=== PATIENT | male | born 1965 | race Caucasian/White ===

== ENCOUNTER 2017-03-31 17:43 | Inpatient (IN) | payer BC ==
[~2017-03-31 17:43] MED LIST: PIPERACILLIN/TAZOB 4.5 GM/100 ML PRE-DOCKED IVPB ONE
[2017-03-31] MEDS ORDERED: morphine CARPU-JECT 4 MG/1 ML DISP.SYRIN IVPUSH ONE ×2 (17:46→21:42)
[2017-03-31] MEDS ORDERED: SODIUM CHLORIDE 1,000 ML IV STA ×2 (17:46→22:20)
--- NOTE | 2017-03-31 17:46 | PDOC ---
History of Present Illness - General History Source: Patient Exam Limitations: No Limitations - History of Present Illness Initial Comments: 03/31/17 17:52 The patient is a year old male, BIBA with a significant past medical history of gallstones, who presents to the emergency department with mid abdominal pain for about 45 min. The patient reports his pain is constant and sharp. The patient reports being scheduled for surgery this Saturday for his gallbladder. He denies any recent fevers, chills, headache or dizziness. He denies any recent nausea, vomit, diarrhea or constipation. He denies any recent chest pain or shortness of breath. He denies any recent dysuria, frequency, urgency or hematuria. Allergies: NKA Social History: Nonsmoker. Denies EtOH use and recreational drug use. <Zbigniew Long - Last Filed: 03/31/17 17:52> <Millie Cazares - Last Filed: 03/31/17 20:22> - General Chief Complaint: Pain, Acute Stated Complaint: ABD PAIN Time Seen by Provider: 03/31/17 17:45 Past History <Zbigniew Long - Last Filed: 03/31/17 17:52> - Suicide/Smoking/Psychosocial Hx Smoking Status: Yes Smoking History: Current every day smoker Number of Cigarettes Smoked Daily: 10 <Millie Cazares - Last Filed: 03/31/17 20:22> - Past Medical History Allergies/Adverse Reactions: Allergies Allergy/AdvReac Type Severity Reaction Status Date / Time No Known Allergies Allergy Verified 08/31/11 15:43 Home Medications: Ambulatory Orders Diazepam [Valium] 5 mg PO Q6H #14 tablet 08/31/11 Ibuprofen [Motrin -] 800 mg PO TID #14 tablet 08/31/11 Oxycodone HCl/Acetaminophen [Percocet 5-325 mg Tablet] 1 - 2 combo PO Q6H #20 tablet 08/31/11 Review of Systems - Review of Systems Able to Perform ROS?: Yes Comments:: 03/31/17 17:52 GENERAL/CONSTITUTIONAL: No fever or chills. No weakness. HEAD, EYES, EARS, NOSE AND THROAT: No change in vision. No ear pain or discharge. No sore throat. CARDIOVASCULAR: No chest pain or shortness of breath. RESPIRATORY: No cough, wheezing, or hemoptysis. GASTROINTESTINAL: No nausea, vomiting, diarrhea or constipation. GENITOURINARY: No dysuria, frequency, or change in urination. MUSCULOSKELETAL: No joint or muscle swelling or pain. No neck or back pain. SKIN: No rash NEUROLOGIC: No headache, vertigo, loss of consciousness, or change in strength/ sensation. ENDOCRINE: No increased thirst. No abnormal weight change. HEMATOLOGIC/LYMPHATIC: No anemia, easy bleeding, or history of blood clots. ALLERGIC/IMMUNOLOGIC: No hives or skin allergy. <Zbigniew Long - Last Filed: 03/31/17 17:52> *Physical Exam - Physical Exam Comments: GENERAL: Awake, alert, and fully oriented. In obvious discomfort. HEAD: No signs of trauma EYES: PERRLA, EOMI, sclera anicteric, conjunctiva clear ENT: Auricles normal inspection, hearing grossly normal, nares patent, oropharynx clear without exudates. Dry mucosa NECK: Normal ROM, supple, no lymphadenopathy, JVD, or masses LUNGS: Breath sounds equal, clear to auscultation bilaterally. No wheezes, and no crackles HEART: Regular rate and rhythm, normal S1 and S2, no murmurs, rubs or gallops ABDOMEN: Soft, +RUQ tenderness with guarding and rebound. Normoactive bowel sounds. No masses EXTREMITIES: Normal range of motion, no edema. No clubbing or cyanosis. No cords , erythema, or tenderness NEUROLOGICAL: Cranial nerves II through XII grossly intact. Normal speech. Motor and sensation intact. SKIN: Warm, Dry, normal turgor, no rashes or lesions noted. <Millie Cazares - Last Filed: 03/31/17 20:22> ED Treatment Course - LABORATORY CBC & Chemistry Diagram: 03/31/17 18:12 03/31/17 18:12 <Millie Cazares - Last Filed: 03/31/17 20:22> Medical Decision Making - Medical Decision Making 03/31/17 19:[address] Singleton at 7pm shift change. He has history of gallstones, was scheduled for outpatient elective cholecystectomy, but today he developed sudden onset of severe RUQ pain, concerning for cholecystitis. He has received pain medication with significant improvement in symptoms. Awaiting CMP and ultrasound results. Likely admission. <Millie Cazares - Last Filed: 03/31/17 20:22> *DC/Admit/Observation/Transfer - Attestations Scribe Attestion: 03/31/17 17:53 Documentation prepared by Zbigniew Long, acting as medical front desk coordinator for Millie Cazares MD. <Zbigniew Long - Last Filed: 03/31/17 17:52> <Millie Cazares - Last Filed: 03/31/17 20:22> Diagnosis at time of Disposition: Abdominal pain Qualifiers: Abdominal location: right upper quadrant Qualified Code(s): R10.11 - Right upper quadrant pain
[2017-03-31] MEDS ORDERED: morphine SULFATE 4 MG/ML VIAL ONE ×2 (17:51→21:43)
[2017-03-31] MEDS ORDERED: morphine CARPU-JECT 2 MG/1 ML DISP.SYRIN ONE (17:53)
[2017-03-31 18:32] LABS: BASO % 0.7 % (0-2.0); EOS % 2.3 % (0-4.5); HEMATOCRIT 47.5 % (35.4-49); HEMOGLOBIN 16.4 GM/dl (11.7-16.9); LYMPH % 16.5 % (8-40); MCH 32.2 pg (25.7-33.7); MCHC 34.5 g/dl (32.0-35.9); MEAN CELL VOLUME 93.4 fl (80-96); MEAN PLT VOLUME 8.3 fl (7.5-11.1); MONO % 9.5 % (3.8-10.2); PLATELET COUNT 228 K/MM3 (134-434); RBC 5.09 M/mm3 (4.00-5.60); RDW 13.3 % (11.9-15.9); WHITE BLOOD COUNT 7.9 K/mm3 (4.0-10.8)
[2017-03-31 18:33] LABS: INR 1.24 (0.82-1.09); PROTHROMBIN TIME (PATIENT) 13.8 SEC (10.2-13.0)
[2017-03-31 18:49] LABS: ALBUMIN 3.9 g/dl (3.5-5.0); ALK PHOS 80 U/L (32-92); ANION GAP 7 (8-16); BILIRUBIN,TOTAL 0.4 mg/dl (0.2-1.0); BLOOD UREA NITROGEN 22 mg/dl (7-18); CALCIUM 9.2 mg/dl (8.4-10.2); CHLORIDE 103 mmol/L (98-107); CO2 31 mmol/L (22-28); CREATININE 1.1 mg/dl (0.6-1.3); GLUCOSE,RANDOM 86 mg/dl (74-106); LIPASE 26 U/L (22-51); POTASSIUM 3.7 mmol/L (3.5-5.1); SGOT/AST 58 U/L (10-42); SGPT/ALT 33 U/L (10-40); SODIUM 141 mmol/L (136-145); TOT PROT 6.5 g/dl (6.4-8.3)
--- NOTE | 2017-03-31 19:36 | PDOC ---
*Physical Exam - Vital Signs Last Vital Signs Temp Pulse Resp BP Pulse Ox 98.4 F 93 H 24 181/91 99 03/31/17 17:43 03/31/17 17:43 03/31/17 17:43 03/31/17 17:43 03/31/17 17:43 ED Treatment Course - LABORATORY CBC & Chemistry Diagram: 03/31/17 18:12 03/31/17 18:12 - ADDITIONAL ORDERS Additional order review: Laboratory Results 03/31/17 03/31/17 18:12 18:09 PT with INR 13.8 H INR 1.24 H Sodium 141 Potassium 3.7 Chloride 103 Carbon Dioxide 31 H Anion Gap 7 L BUN 22 H Creatinine 1.1 Creat Clearance w eGFR > 60 Random Glucose 86 Calcium 9.2 Total Bilirubin 0.4 AST 58 H ALT 33 Alkaline Phosphatase 80 Total Protein 6.5 Albumin 3.9 Lipase 26 03/31/17 18:12 RBC 5.09 MCV 93.4 MCHC 34.5 RDW 13.3 MPV 8.3 Neutrophils % 71.0 Lymphocytes % 16.5 Monocytes % 9.5 Eosinophils % 2.3 Basophils % 0.7 - Medications Given in the ED: ED Medications Discontinued Medications Generic Name Dose Route Start Last Admin Trade Name Freq PRN Reason Stop Dose Admin Sodium Chloride 1,000 mls @ 1,000 mls/hr 03/31/17 17:46 03/31/17 17:45 Normal Saline - IV 03/31/17 18:45 1,000 mls/hr ASDIR STA Administration Morphine Sulfate 6 mg 03/31/17 17:46 03/31/17 17:50 Morphine Injection - IVPUSH 03/31/17 17:47 6 mg ONCE ONE Administration Progress Note - Progress Note Progress Note: Care of this patient was transferred to [place] from Dr. Cazares at 1900 hrs. Patient is a 52-year-old male who has history of gallstones. Patient was scheduled for an elective gallbladder removal in the near future however he came in this evening with an acute attack of his gallbladder pain. Patient has a workup pending as well as an ultrasound to rule out acute cholecystitis. Patient has been medicated with morphine but still is somewhat uncomfortable so will medicate with Toradol Will follow-up on labs and ultrasound Well reassess US Patient Name: CAROLEE FLORES THIS IS A PRELIMINARY REPORT FROM [facility] DATE OF SERVICE: 2017-03-31 19:33:14 IMAGES: 67 EXAM: US ABDOMEN RIGHT UPPER QUADRANT HISTORY: 52-year-old male evaluate for cholecystitis. COMPARISON: None. FINDINGS: Mild 16.5 cm hepatomegaly and fatty replacement of the liver parenchyma. Cholelithiasis in the gallbladder neck moderate 8.4 cm gallbladder distention abnormal 9 mm gallbladder wall thickening positive sonographic Lopez sign and pericholecystic free fluid is consistent with acute cholecystitis. Abnormal 8 mm common bile duct dilation may be associated with distal common bile duct partially obstructing choledocholithiasis or other disease in the pancreatic head. Pancreas is not seen due to overlying bowel gas. No right kidney nephrolithiasis or hydronephrosis. Right kidney measures 10.8 x 3.7 x 5.1 cm. IMPRESSION: Cholelithiasis and acute cholecystitis. Mild hepatomegaly and steatosis may be associated with insulin resistance and metabolic syndrome. Limited exam with nonvisualization the pancreas due to overlying bowel gas. Abnormal 8 mm common bile duct dilation may be associated with distal common bile duct partially obstructing choledocholithiasis or other disease in the pancreatic head. If clinically indicated followup magnetic resonance cholangiopancreatogram MRCP protocol MRI abdomen may be needed. A verbal report of the abnormal findings were discussed with Dr. Kelly by Dr. Gamble at 8:49 PM EST March 31, 2017. THIS DOCUMENT HAS BEEN ELECTRONICALLY SIGNED Ming Gamble MD Ultrasound shows acute cholecystitis. Patient given Zosyn and will be placed in an observation bed for further management and evaluation of his acute cholecystitis and probable removal of his gallbladder. Patient will be admitted under the hospitalist service and the surgeon will be Dr. Horan. Discussed the case with Dr. Horan feels the patient will need an MRCP and probably ERCP prior to the OR. so patient will be transferred to [facility] as those procedures are not done here at [facility]. Dr. Ibarra will be consult and for the GI studies. *DC/Admit/Observation/Transfer Diagnosis at time of Disposition: Acute cholecystitis Abdominal pain Qualifiers: Abdominal location: right upper quadrant Qualified Code(s): R10.11 - Right upper quadrant pain - Discharge Dispostion Admit: Yes - Referrals - Patient Instructions - Post Discharge Activity
[2017-03-31] MEDS ORDERED: KETOROLAC TROMETHAMINE 30 MG/1 ML VIAL IVPUSH ONE (19:41)
[2017-03-31] MEDS ORDERED: KETOROLAC TROMETHAMINE 30 MG/1 ML VIAL ONE (19:42)
[2017-03-31] MEDS ORDERED: PIPERACILLIN/TAZOBACTAM 3.375 GM VIAL IVPB ONE (20:45)
[2017-03-31] MEDS ORDERED: PIPERACIL/TAZOB 3.375 GM 3.375 GM/50 ML PREMIX IVPB ONE (21:17)
[2017-03-31] MEDS ORDERED: SODIUM CHLORIDE 1,000 ML IV SCH (21:30)
[2017-03-31] MEDS ORDERED: PIPERACILLIN/TAZOB 3.375 GM/50 ML PRE-DOCKED IVPB ONE (21:41)
--- NOTE | 2017-03-31 22:17 | HP ---
CHIEF COMPLAINT: Abdominal Pain PCP: HISTORY OF PRESENT ILLNESS: This is a 52 y/o man with a past medical history of Cholelithiasis, Degenerative Disc Disease. Who presents to the ED with mid abdominal pain x today. Patient describes the pain as constant and sharp. He reports being diaphoretic initially- then resolved. Patient reports having a similar episode in February and is scheduled for a Cholecystectomy this Saturday at [facility]. Patient reports avoiding fatty, greasy, spicy foods. He denies fever, chills, cough, SOB, CP, palpitations, N/V/D, constipation, dysuria. ER course was notable for: (1) US abdomen- Acute Cholecystitis (2) (3) Recent Travel: None PAST MEDICAL HISTORY: see HPI PAST SURGICAL HISTORY: Social History: Smoking: Cigarettes < 5 per/day Alcohol: None Drugs: None Family History: No Heart Disease Allergies No Known Allergies Allergy (Verified 08/31/11 15:43) HOME MEDICATIONS: Home Medications Medication Instructions Recorded Doxazosin Mesylate [Cardura] 1 mg PO HS 03/31/17 Metoprolol Succinate [Toprol Xl] 25 mg PO DAILY 03/31/17 Rivaroxaban [Xarelto -] 20 mg PO DAILY 03/31/17 Valsartan 40 mg PO DAILY 03/31/17 REVIEW OF SYSTEMS CONSTITUTIONAL: diaphoresis Absent: fever, chills, generalized weakness, malaise, loss of appetite, weight change HEENT: Absent: rhinorrhea, nasal congestion, throat pain, throat swelling, difficulty swallowing, mouth swelling, ear pain, eye pain, visual changes CARDIOVASCULAR: Absent: chest pain, syncope, palpitations, irregular heart rate, lightheadedness , peripheral edema RESPIRATORY: Absent: cough, shortness of breath, dyspnea with exertion, orthopnea, wheezing, stridor, hemoptysis GASTROINTESTINAL: abdominal pain Absent: abdominal distension, nausea, vomiting, diarrhea, constipation, melena, hematochezia GENITOURINARY: Absent: dysuria, frequency, urgency, hesitancy, hematuria, flank pain, genital pain MUSCULOSKELETAL: Absent: myalgia, arthralgia, joint swelling, back pain, neck pain SKIN: Absent: rash, itching, pallor HEMATOLOGIC/IMMUNOLOGIC: Absent: easy bleeding, easy bruising, lymphadenopathy, frequent infections ENDOCRINE: Absent: unexplained weight gain, unexplained weight loss, heat intolerance, cold intolerance NEUROLOGIC: Absent: headache, focal weakness or paresthesias, dizziness, unsteady gait, seizure, mental status changes, bladder or bowel incontinence PSYCHIATRIC: Absent: anxiety, depression, suicidal or homicidal ideation, hallucinations. PHYSICAL EXAMINATION Vital Signs - 24 hr 03/31/17 03/31/17 17:43 21:04 Temperature 98.4 F Pulse Rate 93 H Pulse Rate [ 64 Left] Respiratory 24 16 Rate Blood Pressure 181/91 Blood Pressure 154/111 [Right] O2 Sat by Pulse 99 100 Oximetry (%) GENERAL: Awake, alert, and fully oriented, in no acute distress. HEAD: Normal with no signs of trauma. EYES: Pupils equal, round and reactive to light, extraocular movements intact, sclera anicteric, conjunctiva clear. No lid lag. EARS, NOSE, THROAT: Ears normal, nares patent, oropharynx clear without exudates. Moist mucous membranes. NECK: Normal range of motion, supple without lymphadenopathy, JVD, or masses. LUNGS: Breath sounds equal, clear to auscultation bilaterally. No wheezes, and no crackles. No accessory muscle use. HEART: Regular rate and rhythm, normal S1 and S2 without murmur, rub or gallop. ABDOMEN: Soft, Obese, RUQ tenderness, hyperactive bowel sounds, +Lopez's Sign. Not distended, no guarding, no rebound, no masses. No hepatomegaly or splenomegaly. MUSCULOSKELETAL: Normal range of motion at all joints. No bony deformities or tenderness. No CVA tenderness. UPPER EXTREMITIES: 2+ pulses, warm, well-perfused. No cyanosis. No clubbing. No peripheral edema. LOWER EXTREMITIES: 2+ pulses, warm, well-perfused. No calf tenderness. No peripheral edema. NEUROLOGICAL: Cranial nerves II-XII intact. Normal speech. Normal gait. PSYCHIATRIC: Cooperative. Good eye contact. Appropriate mood and affect. SKIN: Warm, dry, normal turgor, no rashes or lesions noted, normal capillary refill. Laboratory Results - last 24 hr 03/31/17 03/31/17 03/31/17 18:09 18:12 18:12 WBC 7.9 RBC 5.09 Hgb 16.4 Hct 47.5 MCV 93.4 MCH 32.2 MCHC 34.5 RDW 13.3 Plt Count 228 MPV 8.3 Neutrophils % 71.0 Lymphocytes % 16.5 Monocytes % 9.5 Eosinophils % 2.3 Basophils % 0.7 PT with INR 13.8 H INR 1.24 H Sodium 141 Potassium 3.7 Chloride 103 Carbon Dioxide 31 H Anion Gap 7 L BUN 22 H Creatinine 1.1 Creat Clearance w eGFR > 60 Random Glucose 86 Calcium 9.2 Total Bilirubin 0.4 AST 58 H ALT 33 Alkaline Phosphatase 80 Total Protein 6.5 Albumin 3.9 Lipase 26 Blood Type Antibody Screen 03/31/17 03/31/17 18:12 18:24 WBC RBC Hgb Hct MCV MCH MCHC RDW Plt Count MPV Neutrophils % Lymphocytes % Monocytes % Eosinophils % Basophils % PT with INR INR Sodium Potassium Chloride Carbon Dioxide Anion Gap BUN Creatinine Creat Clearance w eGFR Random Glucose Calcium Total Bilirubin AST ALT Alkaline Phosphatase Total Protein Albumin Lipase Blood Type A POSITIVE A POSITIVE Antibody Screen Negative US Patient Name: CAROLEE FLORES THIS IS A PRELIMINARY REPORT FROM [facility] DATE OF SERVICE: 2017-03-31 19:33:14 IMAGES: 67 EXAM: US ABDOMEN RIGHT UPPER QUADRANT HISTORY: 52-year-old male evaluate for cholecystitis. COMPARISON: None. FINDINGS: Mild 16.5 cm hepatomegaly and fatty replacement of the liver parenchyma. Cholelithiasis in the gallbladder neck moderate 8.4 cm gallbladder distention abnormal 9 mm gallbladder wall thickening positive sonographic Lopez sign and pericholecystic free fluid is consistent with acute cholecystitis. Abnormal 8 mm common bile duct dilation may be associated with distal common bile duct partially obstructing choledocholithiasis or other disease in the pancreatic head. Pancreas is not seen due to overlying bowel gas. No right kidney nephrolithiasis or hydronephrosis. Right kidney measures 10.8 x 3.7 x 5.1 cm. IMPRESSION: Cholelithiasis and acute cholecystitis. Mild hepatomegaly and steatosis may be associated with insulin resistance and metabolic syndrome. Limited exam with nonvisualization the pancreas due to overlying bowel gas. Abnormal 8 mm common bile duct dilation may be associated with distal common bile duct partially obstructing choledocholithiasis or other disease in the pancreatic head. If clinically indicated followup magnetic resonance cholangiopancreatogram MRCP protocol MRI abdomen may be needed. A verbal report of the abnormal findings were discussed with Dr. Kelly by Dr. Gamble at 8:49 PM EST March 31, 2017. THIS DOCUMENT HAS BEEN ELECTRONICALLY SIGNED Ming Gamble MD ASSESSMENT/PLAN: This is a 52 y/o man with a PMHx of Cholelithiasis, A-flutter (newly diagnosed on Xarelto). Placed on Observation for Acute Cholecystitis Problem: 1. Abdominal Pain 2. Acute Cholecystitis 3. Hypertension 4. A-Flutter Problem List - Problem (1) Acute cholecystitis Assessment/Plan: - US- See above - Surgeon aware and is following - Zosyn given in the ED - Will continue Zosyn 4.75gm per surgeon - Continue IVF - Repeat CBC, BMP in am - Appreciate ID consult - Appreciate GI Consult for MRCP - Monitor vitals Code(s): K81.0 - ACUTE CHOLECYSTITIS (2) Abdominal pain Assessment/Plan: - See above Code(s): R10.9 - UNSPECIFIED ABDOMINAL PAIN Qualifiers: Abdominal location: right upper quadrant Qualified Code(s): R10.11 - Right upper quadrant pain (3) HTN (hypertension) Assessment/Plan: - Not controlled - Patient reports not taking his BP meds for 3 days- work related. - Continue home meds - Monitor renal function Code(s): I10 - ESSENTIAL (PRIMARY) HYPERTENSION (4) Atrial flutter Assessment/Plan: -Asymptomatic - EKG reviewed Aflutter with variable AV block, RBBB - Appreciate Cardiology consult for surgical clearance for Jessica - Hold Xarelto Code(s): I48.92 - UNSPECIFIED ATRIAL FLUTTER (5) DVT prophylaxis Assessment/Plan: - OOB - SCDs - Hold Xarelto for Surgey Code(s): [id number] - Visit type - Emergency Visit Emergency Visit: Yes ED Registration Date: 03/31/17 Care time: The patient presented to the Emergency Department on the above date and was hospitalized for further evaluation of their emergent condition. - New Patient This patient is new to me today: Yes Date on this admission: 03/31/17 - Critical Care Critical Care patient: No
[2017-03-31] MEDS: morphine CARPU-JECT 10 MG/1 ML DISP.SYRIN IVPUSH PRN (23:45)
[2017-03-31] MEDS: D5-1/2NS+20 MEQ KCL - 20 MEQ/1,000 ML INFUS.BAG IV SCH (23:49)
[2017-04-01] MEDS ORDERED: PNEUMOC 13-VAL CONJ-DIP CRM/PF 0.5 ML DISP.SYRIN IM ONE (02:27)
[2017-04-01] MEDS ORDERED: DOXAZOSIN MESYLATE 1 MG TABLET PO ONE (02:31)
[2017-04-01 02:35] VITALS: BMI 29.5
[2017-04-01] MEDS: morphine CARPU-JECT 10 MG/1 ML DISP.SYRIN IVPUSH PRN ×4 (04:36→20:08)
[2017-04-01] MEDS ORDERED: PIPERACILLIN/TAZOB 4.5 GM/100 ML PRE-DOCKED IVPB ONE (05:00)
[2017-04-01 08:41] LABS: BASO % 0.6 % (0-2.0); EOS % 2.9 % (0-4.5); HEMATOCRIT 42.1 % (35.4-49); HEMOGLOBIN 13.8 GM/dL (11.7-16.9); LYMPH % 26.5 % (8-40); MCH 30.8 pg (25.7-33.7); MCHC 32.7 g/dl (32.0-35.9); MEAN CELL VOLUME 94.1 fl (80-96); MEAN PLT VOLUME 7.9 fl (7.5-11.1); MONO % 10.5 % (3.8-10.2); NEUT % 59.5 % (42.8-82.8); PLATELET COUNT 193 K/MM3 (134-434); RBC 4.48 M/mm3 (4.00-5.60); RDW 14.1 % (11.9-15.9); WHITE BLOOD COUNT 5.6 K/mm3 (4.0-10.0)
[2017-04-01 09:04] LABS: ANION GAP 6 (8-16); BLOOD UREA NITROGEN 16 mg/dL (7-18); CALCIUM 8.2 mg/dL (8.5-10.1); CHLORIDE 110 mmol/L (98-107); CO2 27 mmol/L (21-32); CREATININE 1.1 mg/dL (0.7-1.3); GLUCOSE,RANDOM 86 mg/dL (74-106); POTASSIUM 4.2 mmol/L (3.5-5.1); SODIUM 143 mmol/L (136-145)
[2017-04-01] MEDS ORDERED: PT OWN MED DRAWER 7, Y5N ONE ×4 (09:39→21:18)
[2017-04-01] MEDS: VALSARTAN 40 MG TABLET (FP) PO SCH (09:45)
[2017-04-01] MEDS: METOPROLOL SUCCINATE 25 MG TAB.SR.24H (FP) PO SCH (09:45)
[2017-04-01] MEDS ORDERED: PNEUMOCOCCAL 23 VACCINE 0.5 ML VIAL IM ONE (10:00)
--- NOTE | 2017-04-01 10:44 | EKG ---
Test Reason : Blood Pressure : / mmHG Vent. Rate : 058 BPM Atrial Rate : 277 BPM P-R Int : 000 ms QRS Dur : 140 ms QT Int : 382 ms P-R-T Axes : 092 010 -09 degrees QTc Int : 374 ms ATRIAL FLUTTER WITH VARIABLE A-V BLOCK RIGHT BUNDLE BRANCH BLOCK WHEN COMPARED WITH ECG OF 21-SEP-2001 08:56, RIGHT BUNDLE BRANCH BLOCK IS NOW PRESENT Confirmed by MD ALICIA, KIERAN ([id number]) on 04/01/2017 10:44:28 AM Referred By: HILDA MORELOS Confirmed By:KIERAN VARGAS MD
--- NOTE | 2017-04-01 11:15 | CON.ID ---
Consult Consult Specialty:: infectious diseases Reason for Consultation:: choleycystitis - History of Present Illness Chief Complaint: abd pain History of Present Illness: 52 y/o man with a past medical history of Cholelithiasis, Degenerative Disc Disease. admitted with ruq abdominal pain . Patient describes the pain as constant and sharp. He reports being diaphoretic initially- then resolved. Patient reports having a similar episode in February patient was planned to have surgery done,but according tot he patient the pain yesterday became very severe and the patient came to the hospital and was worked up and found to ahve cbd dilation and ac cholecysitis patient continues to have abd pain denies any other symptoms he is also recent afib smoker says since last 2 yrs it is very light started on zosyn surgery has seen the patient - History Source History Provided By: Patient Limitations to Obtaining History: No Limitations - Alcohol/Substance Use Hx Alcohol Use: No - Smoking History Smoking history: Current every day smoker Have you smoked in the past 12 months: Yes Aproximately how many cigarettes per day: 5 Home Medications - Allergies Allergies/Adverse Reactions: Allergies Allergy/AdvReac Type Severity Reaction Status Date / Time No Known Allergies Allergy Verified 08/31/11 15:43 - Home Medications Home Medications: Ambulatory Orders Doxazosin Mesylate [Cardura] 1 mg PO HS 03/31/17 Metoprolol Succinate [Toprol Xl] 25 mg PO DAILY 03/31/17 Rivaroxaban [Xarelto -] 20 mg PO DAILY 03/31/17 Valsartan 40 mg PO DAILY 03/31/17 Review of Systems - Review of Systems Constitutional: reports: No Symptoms Eyes: reports: No Symptoms HENT: reports: No Symptoms Neck: reports: No Symptoms Cardiovascular: reports: No Symptoms Respiratory: reports: No Symptoms Gastrointestinal: reports: Abdominal Pain (ruq) Musculoskeletal: reports: No Symptoms Integumentary: reports: No Symptoms Neurological: reports: No Symptoms Endocrine: reports: No Symptoms Hematology/Lymphatic: reports: No Symptoms Psychiatric: reports: No Symptoms Physical Exam Vital Signs: Vital Signs Temperature 97.3 F L 04/01/17 09:00 Pulse Rate 76 04/01/17 09:00 Respiratory Rate 18 04/01/17 09:00 Blood Pressure 159/106 04/01/17 09:00 O2 Sat by Pulse Oximetry (%) 97 03/31/17 23:00 Constitutional: Yes: Well Nourished, Calm, Mild Distress Eyes: Yes: Conjunctiva Clear HENT: Yes: Atraumatic, Normocephalic Neck: Yes: Supple, Trachea Midline Cardiovascular: Yes: Pulse Irregular, Other (aflutter) Respiratory: Yes: Regular, CTA Bilaterally Gastrointestinal: Yes: Soft, Tenderness (ruq) Musculoskeletal: Yes: WNL Extremities: Yes: WNL Neurological: Yes: Alert, Oriented Psychiatric: Yes: Alert, Oriented Labs: CBC, BMP 04/01/17 07:00 Imaging - Results Chest X-ray: Report Reviewed, Image Reviewed Ultrasound: Report Reviewed, Image Reviewed Assessment/Plan Problem List - Problem (1) Acute cholecystitis Code(s): K81.0 - ACUTE CHOLECYSTITIS (2) Abdominal pain Code(s): R10.9 - UNSPECIFIED ABDOMINAL PAIN Qualifiers: Abdominal location: right upper quadrant Qualified Code(s): R10.11 - Right upper quadrant pain (3) HTN (hypertension) Code(s): I10 - ESSENTIAL (PRIMARY) HYPERTENSION (4) Atrial flutter Code(s): I48.92 - UNSPECIFIED ATRIAL FLUTTER plan continue as per surgery for mrcp continue abx rest as per primary team
--- NOTE | 2017-04-01 11:18 | CON.GI ---
Consult Consult Specialty:: GI Reason for Consultation:: bilated CBD - History of Present Illness History of Present Illness: Chart reviewed. ED and H&P noted. A 52 yom with known symptomatic cholellithiasis presents with RUQ, radiating to LUQ sharp, severe pain of 1 day duration. Had few similar episodes, but milder in intensity since January of 2017 and was scheduled to undergo elective cholecystectomy later this months. Afebrile, no fever, chills, nausea, or vomiting. No melena, hematochezia, significant weight loss. In ED found to have CBD 0.8 mm, no obvious defects. Liver chemistry, alp,and bili are normal. Gallbladder with sludge and small stones. Tmax 89.4 - History Source History Provided By: Patient - Alcohol/Substance Use Hx Alcohol Use: No - Smoking History Smoking history: Current every day smoker Have you smoked in the past 12 months: Yes Aproximately how many cigarettes per day: 5 Home Medications - Allergies Allergies/Adverse Reactions: Allergies Allergy/AdvReac Type Severity Reaction Status Date / Time No Known Allergies Allergy Verified 08/31/11 15:43 - Home Medications Home Medications: Ambulatory Orders Doxazosin Mesylate [Cardura] 1 mg PO HS 03/31/17 Metoprolol Succinate [Toprol Xl] 25 mg PO DAILY 03/31/17 Rivaroxaban [Xarelto -] 20 mg PO DAILY 03/31/17 Valsartan 40 mg PO DAILY 03/31/17 Family Disease History - Family Disease History Family History: Unremarkable (non-contributory) Review of Systems Findings/Remarks: per H&P, HPI Physical Exam-GI Vital Signs: Vital Signs Temperature 97.3 F L 04/01/17 09:00 Pulse Rate 76 04/01/17 09:00 Respiratory Rate 18 04/01/17 09:00 Blood Pressure 159/106 04/01/17 09:00 O2 Sat by Pulse Oximetry (%) 97 03/31/17 23:00 Constitutional: Yes: Well Nourished, No Distress, Calm Eyes: Yes: Conjunctiva Clear HENT: Yes: Atraumatic Neck: Yes: Supple Cardiovascular: Yes: Regular Rate and Rhythm Respiratory: Yes: Regular Gastrointestinal Inspection: No: Ascites, Distention ...Auscultate: Yes: Normoactive Bowel Sounds ...Palpate: Yes: Guarding, Soft, Tenderness (RUQ, Positive Lopez's). No: Pulsatile Mass Neurological: Yes: Alert, Oriented Labs: CBC, BMP 04/01/17 07:00 INR, PTT INR 1.24 (0.82-1.09) H 03/31/17 18:09 Laboratory Tests 03/31/17 03/31/17 03/31/17 18:09 18:12 18:12 WBC 7.9 RBC 5.09 Hgb 16.4 Hct 47.5 MCV 93.4 MCH 32.2 MCHC 34.5 RDW 13.3 Plt Count 228 MPV 8.3 Neutrophils % 71.0 Lymphocytes % 16.5 Monocytes % 9.5 Eosinophils % 2.3 Basophils % 0.7 PT with INR 13.8 H INR 1.24 H Sodium 141 Potassium 3.7 Chloride 103 Carbon Dioxide 31 H Anion Gap 7 L BUN 22 H Creatinine 1.1 Creat Clearance w eGFR > 60 Random Glucose 86 Calcium 9.2 Total Bilirubin 0.4 AST 58 H ALT 33 Alkaline Phosphatase 80 Troponin I Total Protein 6.5 Albumin 3.9 Lipase 26 Blood Type Antibody Screen 03/31/17 03/31/17 04/01/17 18:12 18:24 07:00 WBC 5.6 RBC 4.48 Hgb 13.8 Hct 42.1 MCV 94.1 MCH 30.8 MCHC 32.7 RDW 14.1 Plt Count 193 MPV 7.9 Neutrophils % 59.5 Lymphocytes % 26.5 Monocytes % 10.5 H Eosinophils % 2.9 Basophils % 0.6 PT with INR INR Sodium Potassium Chloride Carbon Dioxide Anion Gap BUN Creatinine Creat Clearance w eGFR Random Glucose Calcium Total Bilirubin AST ALT Alkaline Phosphatase Troponin I Total Protein Albumin Lipase Blood Type A POSITIVE A POSITIVE Antibody Screen Negative 04/01/17 07:00 WBC RBC Hgb Hct MCV MCH MCHC RDW Plt Count MPV Neutrophils % Lymphocytes % Monocytes % Eosinophils % Basophils % PT with INR INR Sodium 143 Potassium 4.2 Chloride 110 H Carbon Dioxide 27 Anion Gap 6 L BUN 16 Creatinine 1.1 Creat Clearance w eGFR Random Glucose 86 Calcium 8.2 L Total Bilirubin AST ALT Alkaline Phosphatase Troponin I 0.05 Total Protein Albumin Lipase Blood Type Antibody Screen Imaging - Results Ultrasound: Report Reviewed MRI: Pending Problem List - Problems (1) Dilated bile duct Code(s): K83.8 - OTHER SPECIFIED DISEASES OF BILIARY TRACT (2) Acute cholecystitis Code(s): K81.0 - ACUTE CHOLECYSTITIS Assessment/Plan Cholelithiasis, possible cholecystitis, possible choledocolithiasis/passed stone although no evidence of that based on liver chemistry, bilirubin and ALP values. Symptomatic with positive Lopez's. No signs of cholangitis, pancreatitis, toxicity, sepsis. MRCP NPO CMP, direct bili Sx follow up
[2017-04-01 11:36] LABS: ALBUMIN 3.1 g/dl (3.4-5.0); ALK PHOS 87 U/L (45-117); ANION GAP 5 (8-16); BILIRUBIN,DIRECT 0.2 mg/dL (0.0-0.2); BILIRUBIN,TOTAL 0.7 mg/dL (0.2-1.0); BLOOD UREA NITROGEN 15 mg/dL (7-18); CALCIUM 7.7 mg/dL (8.5-10.1); CHLORIDE 111 mmol/L (98-107); CO2 27 mmol/L (21-32); CREATININE 1.1 mg/dL (0.7-1.3); GLUCOSE,RANDOM 93 mg/dL (74-106); SGOT/AST 23 U/L (15-37); SGPT/ALT 40 U/L (12-78); SODIUM 143 mmol/L (136-145); TOT PROT 6.1 g/dl (6.4-8.2)
--- NOTE | 2017-04-01 12:22 | CON.CARD ---
Consult Consult Specialty:: Cardiology Referred by:: Hospitalist Medicine Reason for Consultation:: Pre-operative cardiovascular evaluation - History of Present Illness Chief Complaint: RUQ abd discomfort History of Present Illness: 52 yo male with known symptomatic cholelithiasis, HTN, atrial flutter on NOAC presented with RUQ, radiating to LUQ sharp, severe pain of 1 day duration. Had few similar episodes, but milder in intensity since January of 2017 and was scheduled to undergo elective cholecystectomy later this month. Afebrile, no fever, chills, nausea, or vomiting. No melena, hematochezia, significant weight loss. Liver chemistry, alp,and bili are normal. Gallbladder U/S with sludge and small stones, + Lopez's sign c/w acute cholecystitis, 8.5 mm dilated CBD underwent MRCP. Regarding cardiovascular symptoms, he denies chest pain, dyspnea , near or true syncope, palpitations, orthopnea, PND or LE edema. Last Xarelto dose 03/31/17 9:30 AM. - History Source History Provided By: Patient Limitations to Obtaining History: No Limitations - Alcohol/Substance Use Hx Alcohol Use: No - Smoking History Smoking history: Current every day smoker Have you smoked in the past 12 months: Yes Aproximately how many cigarettes per day: 5 Home Medications - Allergies Allergies/Adverse Reactions: Allergies Allergy/AdvReac Type Severity Reaction Status Date / Time No Known Allergies Allergy Verified 08/31/11 15:43 - Home Medications Home Medications: Ambulatory Orders Doxazosin Mesylate [Cardura] 1 mg PO HS 03/31/17 Metoprolol Succinate [Toprol Xl] 25 mg PO DAILY 03/31/17 Rivaroxaban [Xarelto -] 20 mg PO DAILY 03/31/17 Valsartan 40 mg PO DAILY 03/31/17 Review of Systems - Review of Systems Gastrointestinal: reports: Abdominal Pain - Risk Factors Known Risk Factors: Yes: Hypertension Vital Signs: Vital Signs Temperature 97.3 F L 04/01/17 09:00 Pulse Rate 76 04/01/17 09:00 Respiratory Rate 18 04/01/17 09:00 Blood Pressure 159/106 04/01/17 09:00 O2 Sat by Pulse Oximetry (%) 97 03/31/17 23:00 Constitutional: Yes: No Distress, Calm Neck: Yes: Supple Respiratory: Yes: Regular, CTA Bilaterally Gastrointestinal: Yes: Soft, Hypoactive Bowel Sounds, Tenderness (RUQ) Cardiovascular: Yes: Regular Rate and Rhythm JVD: No Carotid Bruit: No Heart Sounds: Yes: S1, S2 Murmur: Yes: Systolic Murmur, Grade 1 Edema: No - Other Data Labs, Other Data: CBC, BMP 04/01/17 07:00 04/01/17 11:00 INR, PTT INR 1.24 (0.82-1.09) H 03/31/17 18:09 Troponin, BNP 04/01/17 07:00 Troponin I 0.05 Troponin, BNP 04/01/17 07:00 Troponin I 0.05 Aflutter @ 58, RBBB Imaging - Results Chest X-ray: Report Reviewed (NAD) Ultrasound: Report Reviewed (RUQ U/S: Gallbladder with sludge and small stones, +Lopez's sign, 8.5 mm dilated CBD) MRI: Pending Problem List - Problems (1) Anticoagulant long-term use Code(s): Z79.01 - PAYROLL CONSULTANT (CURRENT) USE OF ANTICOAGULANTS (2) Pre-operative cardiovascular examination Code(s): Z01.810 - ENCOUNTER FOR PREPROCEDURAL CARDIOVASCULAR EXAMINATION (3) Acute cholecystitis Code(s): K81.0 - ACUTE CHOLECYSTITIS (4) Atrial flutter Code(s): I48.92 - UNSPECIFIED ATRIAL FLUTTER Qualifiers: Atrial flutter type: atypical Qualified Code(s): I48.4 - Atypical atrial flutter (5) Dilated bile duct Code(s): K83.8 - OTHER SPECIFIED DISEASES OF BILIARY TRACT (6) HTN (hypertension) Code(s): I10 - ESSENTIAL (PRIMARY) HYPERTENSION Qualifiers: Hypertension type: essential hypertension Qualified Code(s): I10 - Essential (primary) hypertension (7) Cholelithiasis and acute cholecystitis without obstruction Code(s): K80.00 - CALCULUS OF GALLBLADDER W ACUTE CHOLECYST W/O OBSTRUCTION Assessment/Plan 1. Acute cholecystitis with cholelithiasis r/o choledocholithiasis 2. Pre-operative cardiovascular evaluation 3. Persistent atrial flutter [id number] on Xarelto 4. HTN/HCVD P:1. Empiric abx with biliary coverage 2. F/u MRCP, liver panel, GI and surgery recommendations 3. Xarelto held pre-op and to be resumed once post-op hemostasis achieved 4. Continue Toprol 25 qd, Diovan 40 qd and Cardura 1 qhs 5. Obtain outpatient records from Dr. Patricio Jewell at [facility] 6. Given absence of symptoms of acute coronary syndrome, decompensated CHF or malignant arrhythmia, there are no cardiovascular contraindications from proceeding with cholecystectomy or ERCP vs intraop cholangiogram as clinically warranted. 7. Thank you for consultative opportunity
[2017-04-01] MEDS: PIPERACILLIN/TAZOB 4.5 GM 4.5 GM in DEXTROSE 5%-WATER - 100 ML IVPB SCH ×2 (12:26→17:37)
--- NOTE | 2017-04-01 13:44 | CONSULT ---
Consult Consult Specialty:: General Surgery Referred by:: Dr. Singleton ( ER)/Hospitalist team Reason for Consultation:: acute cholecystitis with dilated CBD - History of Present Illness Chief Complaint: epigastric pain, known cholelithiasis with plan for cholecystectomy History of Present Illness: 52yo M with HTN, atrial flutter on Xarelto since 02/26/17, BPH, cholelithiasis with h/o biliary colic, who was planned to have robotic cholecystectomy 04/09/17 at another hospital, presented to ER yesterday with acute onset of epigastric pain radiating across both sides of upper abdomen but not to back, associated with sweating but no F/C, N/V, D/C. Normal BM yesterday. Describes urinary symptoms related to BPH. In ER, wbc and LFTs were essentially normal, lipase normal, US showed gallstones with thickened gallbladder wall, small amount of pericholecystic fluid, dilated CBD ~8.5mm, no intrahepatic biliary dilation. He had a + Lopez's sign. He was given IV fluids and started on Zosyn , and transferred to [facility] to obtain MRCP and GI consultation for possible ERCP pending results. Surgery is consulted regarding acute on chronic cholecystitis and need for cholecystectomy. His last dose of Xarelto was yesterday morning. He just had MRCP today. Pain is a bit better, but remains present at 3-4/10, centered around epigastric area, and does have waves of increased pain that come and go. - History Source History Provided By: Patient Limitations to Obtaining History: No Limitations - Past Medical History Cardio/Vascular: Yes: HTN, Murmur, Other (atrial flutter) Gastrointestinal: Yes: Diverticulosis Hepatobiliary: Yes: Cholelithiasis (cholecystectomy planned for 04/09/17) Renal/: Yes: BPH Musculoskeletal: Yes: Chronic low back pain (L4-5 disc issues (no chronic meds now)) - Past Surgical History Past Surgical History: Yes: Hernia Repair (right inguinal with mesh). 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 Home Medications - Allergies Allergies/Adverse Reactions: Allergies Allergy/AdvReac Type Severity Reaction Status Date / Time No Known Allergies Allergy Verified 08/31/11 15:43 - Home Medications Home Medications: Ambulatory Orders Doxazosin Mesylate [Cardura] 1 mg PO HS 03/31/17 Metoprolol Succinate [Toprol Xl] 25 mg PO DAILY 03/31/17 Rivaroxaban [Xarelto -] 20 mg PO DAILY 03/31/17 Valsartan 40 mg PO DAILY 03/31/17 Family Disease History - Family Disease History Family Disease History: CA: Father (lung and prostate, alive at 87), Mother ( lung, at 51) Review of Systems - Review of Systems Constitutional: reports: Diaphoresis. denies: Chills, Fever Eyes: reports: Other (glasses for distance). denies: Blurred Vision, Recent Change in Vision HENT: denies: Difficult Swallowing, Hearing Loss, Nasal Congestion, Throat Pain Neck: denies: Swollen Glands, Tenderness Cardiovascular: denies: Chest Pain, Palpitations Respiratory: reports: Other (few times a year has need to "catch breath" when lying down, makes funny sound when it happens, ?apnea-related? never been tested ). denies: Cough, SOB Gastrointestinal: reports: Abdominal Pain (with hpi). denies: Constipation, Diarrhea, Nausea, Vomiting Genitourinary: reports: Other (not sure he always empties bladder, some lack of sensation at end of stream, no incontinence, describes weaker stream at times). denies: Burning, Dysuria Musculoskeletal: reports: Back Pain (occasionally). denies: Joint Pain, Muscle Pain Integumentary: denies: Change in Color, Rash Neurological: denies: Dizziness, Headache Hematology/Lymphatic: denies: Easily Bruised, Excessive Bleeding Psychiatric: denies: Anxiety, Depression Physical Exam Vital Signs: Vital Signs Temperature 97.3 F L 04/01/17 09:00 Pulse Rate 76 04/01/17 09:00 Respiratory Rate 18 04/01/17 09:00 Blood Pressure 159/106 04/01/17 09:00 O2 Sat by Pulse Oximetry (%) 97 03/31/17 23:00 Constitutional: Yes: Well Nourished, No Distress, Calm Eyes: Yes: Conjunctiva Clear, EOM Intact. No: Sclera Icterus HENT: Yes: Atraumatic, Normocephalic Neck: Yes: Supple, Trachea Midline Cardiovascular: Yes: Pulse Irregular (mildly), Murmur. No: Bradycardia, Tachycardia Respiratory: Yes: Regular, CTA Bilaterally Gastrointestinal: Yes: Normal Bowel Sounds, Soft, Tenderness (epigastric and RUQ mostly, also some LUQ and RLQ, referred to former area, no rebound, some voluntary guarding at epigastrium), Tenderness, Epigastrium. No: Tenderness, Rebound ...Rectal Exam: Yes: Deferred Renal/: No: CVA Tenderness - Left, CVA Tenderness - Right Musculoskeletal: No: Joint Stiffness, Joint Swelling Extremities: No: Cool, Cyanosis Edema: No Peripheral Pulses WNL: Yes Integumentary: No: Jaundice, Rash Neurological: Yes: Alert, Oriented Psychiatric: Yes: Alert, Oriented Labs: CBC, BMP 04/01/17 07:00 04/01/17 11:00 CMP Sodium 143 mmol/L (136-145) 04/01/17 11:00 Potassium 4.0 mmol/L (3.5-5.1) 04/01/17 11:00 Chloride 111 mmol/L (98-107) H 04/01/17 11:00 Carbon Dioxide 27 mmol/L (21-32) 04/01/17 11:00 Anion Gap 5 (8-16) L 04/01/17 11:00 BUN 15 mg/dL (7-18) 04/01/17 11:00 Creatinine 1.1 mg/dL (0.7-1.3) 04/01/17 11:00 Creat Clearance w eGFR > 60 (>60) 04/01/17 11:00 Random Glucose 93 mg/dL (74-106) 04/01/17 11:00 Calcium 7.7 mg/dL (8.5-10.1) L 04/01/17 11:00 Total Bilirubin 0.7 mg/dL (0.2-1.0) 04/01/17 11:00 Direct Bilirubin 0.2 mg/dL (0.0-0.2) 04/01/17 11:00 AST 23 U/L (15-37) 04/01/17 11:00 ALT 40 U/L (12-78) 04/01/17 11:00 Alkaline Phosphatase 87 U/L (45-117) 04/01/17 11:00 Troponin I 0.05 ng/ml (0.00-0.05) 04/01/17 07:00 Total Protein 6.1 g/dl (6.4-8.2) L 04/01/17 11:00 Albumin 3.1 g/dl (3.4-5.0) L 04/01/17 11:00 Lipase 26 U/L (22-51) 03/31/17 18:12 INR, PTT INR 1.24 (0.82-1.09) H 03/31/17 18:09 Imaging - Results Ultrasound: Report Reviewed (small stones and sludge, thick wall of gb, trace pericholecystic fluid, cbd ~8mm), Image Reviewed MRI: Pending, Image Reviewed Problem List - Problems (1) Calculus of gallbladder with acute and chronic cholecystitis without obstruction Assessment/Plan: admitted to medicine, transferred from [facility] for MRCP and possible ERCP was to have surgery a week from tomorrow, but had acute pain yesterday NPO/IVF until postop Xarelto held since last dose 9:30am 03/31/17 ok to continue other home meds with sips of water only IV antibiotics per ID, on Zosyn pain meds prn GI/DVT prophylaxis periop MRCP done, report pending if no choledocholithiasis, will plan for lap cristian tomorrow (need minimum 48hrs off Xarelto for surgery) if +, would need GI for ERCP first, also tomorrow earliest Discussed with patient risks, benefits and alternatives of laparoscopic possible open cholecystectomy, including but not limited to bleeding, infection , injury to adjacent structures, bile leak or ductal injury, intraabdominal abscess, hernia, need for further procedures, ; alternatives include antibiotics, delayed or no surgery - risks of this include ascending infection, sepsis, recurrence, pancreatitis, . Patient desires to proceed with operation - will take to OR for above once clear from MRCP/GI standpoint and off Xarelto at least 48 hours. Informed consent signed for same. Anticipate OR sometime tomorrow if possible. Code(s): K80.12 - CALCULUS OF GB W ACUTE AND CHRONIC CHOLECYST W/O OBSTRUCTION (2) Atrial flutter Code(s): I48.92 - UNSPECIFIED ATRIAL FLUTTER Qualifiers: Atrial flutter type: atypical Qualified Code(s): I48.4 - Atypical atrial flutter (3) HTN (hypertension) Code(s): I10 - ESSENTIAL (PRIMARY) HYPERTENSION Qualifiers: Hypertension type: essential hypertension Qualified Code(s): I10 - Essential (primary) hypertension (4) BPH (benign prostatic hyperplasia) Code(s): N40.0 - BENIGN PROSTATIC HYPERPLASIA WITHOUT LOWER URINRY TRACT SYMP Qualifiers: Lower urinary tract symptom presence: symptoms present Lower urinary tract symptom detail: weak urinary stream Qualified Code(s): N40.1 - Benign prostatic hyperplasia with lower urinary tract symptoms; R39.12 - Poor urinary stream; R39.12 - Poor urinary stream
--- NOTE | 2017-04-01 14:26 | PN ---
Teaching Attending Note Name of Resident: Spencer Alfaro ATTENDING PHYSICIAN STATEMENT I saw and evaluated the patient. I reviewed the resident's note and discussed the case with the resident. I agree with the resident's findings and plan as documented. SUBJECTIVE: Patient is a 52 y/o man with a past medical history of Cholelithiasis, Degenerative Disc Disease. Who presents to the ED with having mid abdominal pain which he had a similar episode where he was hospitalized before for the same reason but his pain subsided and he was following low fat diet and had a scheduled appointment for a Cholecystectomy this Saturday with the surgeon. Yesterday the patient had a piece of bread and butter , where afterward around 3 hrs later developed severe abdominal pain he came to the hospital for further care and evaluation. Patient is comfortable now. No fever or chills. No shortness of breath. OBJECTIVE: Vital Signs Temperature 97.3 F L 04/01/17 09:00 Pulse Rate 76 04/01/17 09:00 Respiratory Rate 18 04/01/17 09:00 Blood Pressure 159/106 04/01/17 09:00 O2 Sat by Pulse Oximetry (%) 98 04/01/17 13:00 CBCD WBC 5.6 K/mm3 (4.0-10.0) 04/01/17 07:00 RBC 4.48 M/mm3 (4.00-5.60) 04/01/17 07:00 Hgb 13.8 GM/dL (11.7-16.9) 04/01/17 07:00 Hct 42.1 % (35.4-49) 04/01/17 07:00 MCV 94.1 fl (80-96) 04/01/17 07:00 MCHC 32.7 g/dl (32.0-35.9) 04/01/17 07:00 RDW 14.1 % (11.9-15.9) 04/01/17 07:00 Plt Count 193 K/MM3 (134-434) 04/01/17 07:00 MPV 7.9 fl (7.5-11.1) 04/01/17 07:00 CMP Sodium 143 mmol/L (136-145) 04/01/17 11:00 Potassium 4.0 mmol/L (3.5-5.1) 04/01/17 11:00 Chloride 111 mmol/L (98-107) H 04/01/17 11:00 Carbon Dioxide 27 mmol/L (21-32) 04/01/17 11:00 Anion Gap 5 (8-16) L 04/01/17 11:00 BUN 15 mg/dL (7-18) 04/01/17 11:00 Creatinine 1.1 mg/dL (0.7-1.3) 04/01/17 11:00 Creat Clearance w eGFR > 60 (>60) 04/01/17 11:00 Random Glucose 93 mg/dL (74-106) 04/01/17 11:00 Calcium 7.7 mg/dL (8.5-10.1) L 04/01/17 11:00 Total Bilirubin 0.7 mg/dL (0.2-1.0) 04/01/17 11:00 AST 23 U/L (15-37) 04/01/17 11:00 ALT 40 U/L (12-78) 04/01/17 11:00 Alkaline Phosphatase 87 U/L (45-117) 04/01/17 11:00 Total Protein 6.1 g/dl (6.4-8.2) L 04/01/17 11:00 Albumin 3.1 g/dl (3.4-5.0) L 04/01/17 11:00 CARDIAC ENZYMES Troponin I 0.05 ng/ml (0.00-0.05) 04/01/17 07:00 Current Medications Generic Name Dose Route Start Last Admin Trade Name Freq PRN Reason Stop Dose Admin Doxazosin Mesylate 1 mg 04/01/17 22:00 Cardura - PO HS AARON Potassium Chloride/Dextrose/Sod Cl 20 meq in 1,000 mls @ 75 mls/hr 03/31/17 22 :15 03/31/17 23:49 D5-1/2ns+20 Meq Kcl - IV 75 mls/hr ASDIR AARON Administration Piperacillin Sod/Tazobactam 100 mls @ 200 mls/hr 04/01/17 12:00 04/01/17 12: 26 Sod 4.5 gm/ Dextrose IVPB 200 mls/hr Q8H-IV AARON Administration Protocol Metoprolol Succinate 25 mg 04/01/17 10:00 04/01/17 09:45 Toprol Xl - PO 25 mg DAILY AARON Administration Morphine Sulfate 4 mg 03/31/17 23:37 01/08/18 08:55 Morphine Injection - IVPUSH 4 mg Q4H PRN Administration PAIN Valsartan 40 mg 04/01/17 10:00 04/01/17 09:45 Diovan - PO 40 mg DAILY AARON Administration Home Medications Medication Instructions Recorded Doxazosin Mesylate [Cardura] 1 mg PO HS 03/31/17 Metoprolol Succinate [Toprol Xl] 25 mg PO DAILY 03/31/17 Rivaroxaban [Xarelto -] 20 mg PO DAILY 03/31/17 Valsartan 40 mg PO DAILY 03/31/17 PE: comfortable with no acute distress CHEST: CTA BL CVS: S1S2 positive, No murmur appreciated Abdomen: soft, NT at this time EXT: pulses are positive Neuro: AAOx3, NFD US report noted and reviewed. ASSESSMENT AND PLAN: Patient is a 52 y/o man with a past medical history of Cholelithiasis, Degenerative Disc Disease came in to ED.for having a severe abdominal pain, patient has a hx of cholelithiasis and was scheduled for having surgery this coming Saturday. Presented with acute cholecystitis. # Acute cholecystitis with cholelithiasis on IV abx , Id on the case further management per ID. MRCP is pending , GI on the case and surgical consult appreciated. Dr. Patricio Jewell at [facility], obtain medical records. # Atrial flutter with [id number] on Xarelto, on Hold since going for sx in am # HTN Uncontrolled continue Toprol 25 qd, Diovan 40 qd and Cardura 1 qhs. Can have his BP meds with small sip of water prior to sx. DVT Px: SCDS, heparin
[2017-04-01] MEDS ORDERED: PIPERACILLIN/TAZOB 4.5 GM/100 ML PREMIX BAG IVPB SCH (15:00)
--- NOTE | 2017-04-01 17:14 | PN ---
Physical Exam: SUBJECTIVE: Patient seen and examined Pt complaining of intermittent RUQ abdominal pain improved with pain meds. He denies n/v/d/c. OBJECTIVE: Vital Signs Period Temp Pulse Resp BP Sys/Galarza Pulse Ox Last 24 Hr 97.3 F-98.6 F 63-93 16-24 130-181/70-111 97-100 GENERAL: The patient is awake, alert, and fully oriented, in no acute distress. HEENT: NC, AT, no scleral icterus NECK: Trachea midline, full range of motion, supple. LUNGS: Breath sounds equal, clear to auscultation bilaterally, no wheezes, no crackles, no accessory muscle use. HEART: Regular rate and rhythm, S1, S2 without murmur, rub or gallop. ABDOMEN: non-distended, soft, moderately tender in RUQ region, normoactive BS EXTREMITIES: 2+ pulses, warm, well-perfused, no edema. NEUROLOGICAL: Cranial nerves II through XII grossly intact. Normal speech, gait not observed. Laboratory Results - last 24 hr 03/31/17 03/31/17 03/31/17 18:09 18:12 18:12 WBC 7.9 RBC 5.09 Hgb 16.4 Hct 47.5 MCV 93.4 MCH 32.2 MCHC 34.5 RDW 13.3 Plt Count 228 MPV 8.3 Neutrophils % 71.0 Lymphocytes % 16.5 Monocytes % 9.5 Eosinophils % 2.3 Basophils % 0.7 PT with INR 13.8 H INR 1.24 H Sodium 141 Potassium 3.7 Chloride 103 Carbon Dioxide 31 H Anion Gap 7 L BUN 22 H Creatinine 1.1 Creat Clearance w eGFR > 60 Random Glucose 86 Calcium 9.2 Total Bilirubin 0.4 Direct Bilirubin AST 58 H ALT 33 Alkaline Phosphatase 80 Troponin I Total Protein 6.5 Albumin 3.9 Lipase 26 Blood Type Antibody Screen 03/31/17 03/31/17 04/01/17 18:12 18:24 07:00 WBC 5.6 RBC 4.48 Hgb 13.8 Hct 42.1 MCV 94.1 MCH 30.8 MCHC 32.7 RDW 14.1 Plt Count 193 MPV 7.9 Neutrophils % 59.5 Lymphocytes % 26.5 Monocytes % 10.5 H Eosinophils % 2.9 Basophils % 0.6 PT with INR INR Sodium Potassium Chloride Carbon Dioxide Anion Gap BUN Creatinine Creat Clearance w eGFR Random Glucose Calcium Total Bilirubin Direct Bilirubin AST ALT Alkaline Phosphatase Troponin I Total Protein Albumin Lipase Blood Type A POSITIVE A POSITIVE Antibody Screen Negative 04/01/17 04/01/17 04/01/17 07:00 11:00 13:40 WBC RBC Hgb Hct MCV MCH MCHC RDW Plt Count MPV Neutrophils % Lymphocytes % Monocytes % Eosinophils % Basophils % PT with INR INR Sodium 143 143 Potassium 4.2 4.0 Chloride 110 H 111 H Carbon Dioxide 27 27 Anion Gap 6 L 5 L BUN 16 15 Creatinine 1.1 1.1 Creat Clearance w eGFR > 60 Random Glucose 86 93 Calcium 8.2 L 7.7 L Total Bilirubin 0.7 Direct Bilirubin 0.2 AST 23 ALT 40 Alkaline Phosphatase 87 Troponin I 0.05 0.04 Total Protein 6.1 L Albumin 3.1 L Lipase Blood Type Antibody Screen Active Medications Generic Name Dose Route Start Last Admin Trade Name Freq PRN Reason Stop Dose Admin Doxazosin Mesylate 1 mg 04/01/17 22:00 Cardura - PO HS AARON Potassium Chloride/Dextrose/Sod Cl 20 meq in 1,000 mls @ 75 mls/hr 03/31/17 22 :15 03/31/17 23:49 D5-1/2ns+20 Meq Kcl - IV 75 mls/hr ASDIR AARON Administration Piperacillin Sod/Tazobactam 100 mls @ 200 mls/hr 04/01/17 12:00 04/01/17 12: 26 Sod 4.5 gm/ Dextrose IVPB 200 mls/hr Q8H-IV AARON Administration Protocol Metoprolol Succinate 25 mg 04/01/17 10:00 04/01/17 09:45 Toprol Xl - PO 25 mg DAILY AARON Administration Morphine Sulfate 4 mg 03/31/17 23:37 04/01/17 15:18 Morphine Injection - IVPUSH 4 mg Q4H PRN Administration PAIN Valsartan 40 mg 04/01/17 10:00 04/01/17 09:45 Diovan - PO 40 mg DAILY AARON Administration ASSESSMENT/PLAN: 52M w/ hx of cholelithiasis, degenerative disc disease, and atrial flutter who presented with acute abdominal pain, admitted for acute cholecystitis. #acute cholecystitis -US abdomen: findings consistent with cholecystitis. Abnormal 8mm CBD dilation. -f/u MRCP to assess for choledocolithiasis -If stones, GI to do ERCP -If no stones, pt scheduled for lap cristian elias am -continue to hold xarelto -D5-1/2 NS @ 75 -pain control with morphine -continue zosyn as per ID -cleared for surgery as per cards #elevated trop -trops downtrended from 0.05 --> 0.04 #Atrial flutter -cards on board, recs appreciated -xarelto held for surgery -rate controlled with toprol #FEN/ppx -D5-1/2 NS @ 75 -electrolytes wnl -NPO for surgery -xarelto held, SCDs -no GI ppx indicated Case discussed with attending, Dr. Pike. -Spencer Alfaro MD PGY1 Visit type - Emergency Visit Emergency Visit: Yes ED Registration Date: 04/01/17 Care time: The patient presented to the Emergency Department on the above date and was hospitalized for further evaluation of their emergent condition. - New Patient This patient is new to me today: Yes Date on this admission: 04/01/17 - Critical Care Critical Care patient: No
[2017-04-01] MEDS: D5-1/2NS+20 MEQ KCL - 20 MEQ/1,000 ML INFUS.BAG IV SCH (17:37)
[2017-04-01] MEDS: DOXAZOSIN MESYLATE 1 MG TABLET PO SCH (21:21)
[2017-04-02] MEDS ORDERED: PT OWN MED DRAWER 7, Y5N ONE ×3 (02:32→16:56)
[2017-04-02 02:33] LABS: URINE APPEARANCE CLEAR; URINE BILIRUBIN NEGATIVE (NEGATIVE); URINE BLOOD NEGATIVE (NEGATIVE); URINE COLOR LTYELLOW; URINE GLUCOSE (UA) NEGATIVE (NEGATIVE); URINE KETONE NEGATIVE (NEGATIVE); URINE LEUK ESTERASE NEGATIVE (NEGATIVE); URINE NITRITE NEGATIVE (NEGATIVE); URINE PROTEIN NEGATIVE (NEGATIVE); URINE UROBILINOGEN NEGATIVE mg/dL (0.2-1.0)
[2017-04-02] MEDS: D5-1/2NS+20 MEQ KCL - 20 MEQ/1,000 ML INFUS.BAG IV SCH ×3 (02:49→22:26)
[2017-04-02] MEDS: PIPERACILLIN/TAZOB 4.5 GM 4.5 GM in DEXTROSE 5%-WATER - 100 ML IVPB SCH ×3 (02:50→17:03)
[2017-04-02 07:52] LABS: INR 1.06 (0.82-1.09)
[2017-04-02 07:55] LABS: ACTIVATED PTT 32.1 SECONDS (26.9-34.4); BASO % 0.7 % (0-2.0); EOS % 2.7 % (0-4.5); HEMATOCRIT 43.1 % (35.4-49); HEMOGLOBIN 14.3 GM/dL (11.7-16.9); LYMPH % 15.8 % (8-40); MCH 30.9 pg (25.7-33.7); MCHC 33.2 g/dl (32.0-35.9); MEAN CELL VOLUME 93.2 fl (80-96); MONO % 10.5 % (3.8-10.2); NEUT % 70.3 % (42.8-82.8); PLATELET COUNT 197 K/MM3 (134-434); RBC 4.63 M/mm3 (4.00-5.60); RDW 14.1 % (11.9-15.9); WHITE BLOOD COUNT 6.6 K/mm3 (4.0-10.0)
[2017-04-02 07:59] LABS: ALBUMIN 3.3 g/dl (3.4-5.0); ANION GAP 7 (8-16); BILIRUBIN,TOTAL 1.1 mg/dL (0.2-1.0); BLOOD UREA NITROGEN 11 mg/dL (7-18); CALCIUM 8.1 mg/dL (8.5-10.1); CHLORIDE 107 mmol/L (98-107); CO2 27 mmol/L (21-32); CREATININE 1.3 mg/dL (0.7-1.3); GLUCOSE,RANDOM 96 mg/dL (74-106); POTASSIUM 3.9 mmol/L (3.5-5.1); SODIUM 141 mmol/L (136-145)
[2017-04-02 08:11] LABS: ALK PHOS 83 U/L (45-117); SGOT/AST 15 U/L (15-37); SGPT/ALT 32 U/L (12-78); TOT PROT 6.3 g/dl (6.4-8.2)
[2017-04-02] MEDS: VALSARTAN 40 MG TABLET (FP) PO SCH (09:06)
[2017-04-02] MEDS: METOPROLOL SUCCINATE 25 MG TAB.SR.24H (FP) PO SCH (09:06)
[2017-04-02 09:12] LABS: LIPASE 131 U/L (73-393)
[2017-04-02] MEDS: morphine CARPU-JECT 10 MG/1 ML DISP.SYRIN IVPUSH PRN ×3 (09:39→20:52)
[2017-04-02] MEDS ORDERED: PROMETHAZINE HCL 25 MG/1 ML VIAL IVPUSH PRN (10:38)
[2017-04-02] MEDS ORDERED: ONDANSETRON 4 MG/2 ML VIAL IVPUSH PRN (10:38)
[2017-04-02] MEDS ORDERED: PROPOFOL 20 ML ONE (11:25)
[2017-04-02] MEDS ORDERED: ROCURONIUM BROMIDE 50 MG/5 ML VIAL ONE (11:25)
[2017-04-02] MEDS ORDERED: GLUCAGON 1 MG KIT ONE (11:25)
[2017-04-02] MEDS ORDERED: GLYCOPYRROLATE 0.2 MG/1 ML VIAL ONE ×3 (11:26)
[2017-04-02] MEDS ORDERED: NEOSTIGMINE METHYLSULFATE 0.5 MG/ML - 10 ML MDV ONE (11:26)
[2017-04-02] MEDS ORDERED: DEXAMETHASONE SOD PHOSPHATE 10 MG/1 ML VIAL ONE (11:26)
[2017-04-02] MEDS ORDERED: ONDANSETRON 4 MG/2 ML VIAL ONE (11:26)
--- NOTE | 2017-04-02 11:53 | PN ---
Progress Note, Physician Chief Complaint: Events noted Abdominal discomfort with palpation History of Present Illness: Patient was seen and examined. Awake and alert. Chart was reviewed Denies chest pain, SOB or palpitations - Current Medication List Current Medications: Active Medications Doxazosin Mesylate (Cardura -) 1 mg PO HS [facility] Last Admin: 04/01/17 21:21 Dose: 1 mg Fentanyl (Sublimaze Injection -) 50 mcg IVPUSH [id number] PRN PRN Reason: PAIN Potassium Chloride/Dextrose/Sod Cl (D5-1/2ns+20 Meq Kcl -) 20 meq in 1,000 mls @ 75 mls/hr IV ASDIR [facility] Last Admin: 04/02/17 10:58 Dose: 75 mls/hr Piperacillin Sod/Tazobactam (Sod 4.5 gm/ Dextrose) 100 mls @ 200 mls/hr IVPB Q8H-IV AARON PRN Reason: Protocol Last Admin: 04/02/17 09:06 Dose: 200 mls/hr Lactated Ringer's (Lactated Ringers Solution) 1,000 mls @ 125 mls/hr IV ASDIR [facility] Metoprolol Succinate (Toprol Xl -) 25 mg PO DAILY [facility] Last Admin: 04/02/17 09:06 Dose: 25 mg Morphine Sulfate (Morphine Injection -) 4 mg IVPUSH Q4H PRN PRN Reason: PAIN Last Admin: 04/02/17 09:39 Dose: 4 mg Ondansetron HCl (Zofran Injection) 4 mg IVPUSH Q6H PRN PRN Reason: NAUSEA AND/OR VOMITING Promethazine HCl (Phenergan Injection -) 12.5 mg IVPUSH Q6H PRN PRN Reason: NAUSEA-FOR RESCUE AFTER 15 MIN Valsartan (Diovan -) 40 mg PO DAILY [facility] Last Admin: 04/02/17 09:06 Dose: 40 mg - Objective Vital Signs: Vital Signs Temperature 98.2 F 04/02/17 10:00 Pulse Rate 68 04/02/17 10:00 Respiratory Rate 18 04/02/17 10:00 Blood Pressure 155/118 04/02/17 10:00 O2 Sat by Pulse Oximetry (%) 96 04/02/17 05:00 Eyes: Yes: PERRL HENT: Yes: Atraumatic Neck: Yes: Supple Cardiovascular: Yes: Regular Rate and Rhythm, Murmur (Soft SM), S1, S2 Respiratory: Yes: CTA Bilaterally Gastrointestinal: Yes: Normal Bowel Sounds, Soft, Tenderness (Mild) Edema: No Additional Findings/Remarks: Review of Systems Constitutional: Denies: Chills or Fever Cardiovascular: denies: SOB, denies chest pain, denies palpitation Respiratory: Denies: cough Gastrointestinal: Denies: Nausea, Vomiting, Diarrhea, Constipation, (+) abdominal pain, denies: melena, hematemesis Genitourinary: No symptoms reported Neurology: No seizures or syncope Labs: CBC, BMP 04/02/17 06:00 04/02/17 06:00 INR, PTT INR 1.06 (0.82-1.09) 04/02/17 06:00 Problem List - Problems (1) Abdominal pain Code(s): R10.9 - UNSPECIFIED ABDOMINAL PAIN Qualifiers: Abdominal location: right upper quadrant Qualified Code(s): R10.11 - Right upper quadrant pain (2) Acute cholecystitis Code(s): K81.0 - ACUTE CHOLECYSTITIS (3) Atrial flutter Code(s): I48.92 - UNSPECIFIED ATRIAL FLUTTER Qualifiers: Atrial flutter type: atypical Qualified Code(s): I48.4 - Atypical atrial flutter (4) Calculus of gallbladder with acute and chronic cholecystitis without obstruction Code(s): K80.12 - CALCULUS OF GB W ACUTE AND CHRONIC CHOLECYST W/O OBSTRUCTION (5) Cholelithiasis and acute cholecystitis without obstruction Code(s): K80.00 - CALCULUS OF GALLBLADDER W ACUTE CHOLECYST W/O OBSTRUCTION (6) Dilated bile duct Code(s): K83.8 - OTHER SPECIFIED DISEASES OF BILIARY TRACT (7) HTN (hypertension) Code(s): I10 - ESSENTIAL (PRIMARY) HYPERTENSION Qualifiers: Hypertension type: essential hypertension Qualified Code(s): I10 - Essential (primary) hypertension (8) Pre-operative cardiovascular examination Code(s): Z01.810 - ENCOUNTER FOR PREPROCEDURAL CARDIOVASCULAR EXAMINATION Assessment/Plan 1. Acute cholecystitis with cholelithiasis rule out choledocholithiasis 2. Pre-operative cardiovascular evaluation 3. Persistent atrial flutter [id number] on NOAC (Xarelto) - stopped 4. HTN/HCVD PLAN: 1. Empiric antibiotic 2. Management as per GI. Eventually cholecystectomy 3. Xarelto held pre-op and to be resumed once post-op hemostasis achieved 4. Continue Toprol 25 qd, Diovan 40 qd and Cardura 1 qhs 5. Given absence of symptoms of acute coronary syndrome, decompensated CHF or malignant arrhythmia, there are no cardiovascular contraindications from proceeding with surgical intervention including ERCP and cholecystectomy Flask Fitter: Dr. Patricio Jewell at [facility] Akbar Frederick MD
[2017-04-02] MEDS ORDERED: hydrALAZINE HCL 20 MG/ML VIAL ONE (11:57)
--- NOTE | 2017-04-02 11:59 | PN ---
Progress Note, Physician Chief Complaint: epigastric pain History of Present Illness: Pt seen and examined in bed, overall feeling a little better. Used morphine yesterday but not overnight. Has been up ambulating. No overnight events. Still with some pain. - Current Medication List Current Medications: Active Medications Doxazosin Mesylate (Cardura -) 1 mg PO HS [facility] Last Admin: 04/01/17 21:21 Dose: 1 mg Fentanyl (Sublimaze Injection -) 50 mcg IVPUSH [id number] PRN PRN Reason: PAIN Potassium Chloride/Dextrose/Sod Cl (D5-1/2ns+20 Meq Kcl -) 20 meq in 1,000 mls @ 75 mls/hr IV ASDIR [facility] Last Admin: 04/02/17 10:58 Dose: 75 mls/hr Piperacillin Sod/Tazobactam (Sod 4.5 gm/ Dextrose) 100 mls @ 200 mls/hr IVPB Q8H-IV AARON PRN Reason: Protocol Last Admin: 04/02/17 09:06 Dose: 200 mls/hr Lactated Ringer's (Lactated Ringers Solution) 1,000 mls @ 125 mls/hr IV ASDIR [facility] Metoprolol Succinate (Toprol Xl -) 25 mg PO DAILY [facility] Last Admin: 04/02/17 09:06 Dose: 25 mg Morphine Sulfate (Morphine Injection -) 4 mg IVPUSH Q4H PRN PRN Reason: PAIN Last Admin: 04/02/17 09:39 Dose: 4 mg Ondansetron HCl (Zofran Injection) 4 mg IVPUSH Q6H PRN PRN Reason: NAUSEA AND/OR VOMITING Promethazine HCl (Phenergan Injection -) 12.5 mg IVPUSH Q6H PRN PRN Reason: NAUSEA-FOR RESCUE AFTER 15 MIN Valsartan (Diovan -) 40 mg PO DAILY [facility] Last Admin: 04/02/17 09:06 Dose: 40 mg - Objective Vital Signs: Vital Signs Temperature 98.2 F 04/02/17 10:00 Pulse Rate 68 04/02/17 10:00 Respiratory Rate 18 04/02/17 10:00 Blood Pressure 155/118 04/02/17 10:00 O2 Sat by Pulse Oximetry (%) 96 04/02/17 05:00 Constitutional: Yes: Well Nourished, No Distress, Calm Eyes: Yes: Conjunctiva Clear, EOM Intact. No: Sclera Icterus Gastrointestinal: Yes: Soft, Tenderness (epigastric and RUQ without R/G), Tenderness, Epigastrium (slightly less than yesterday). No: Distention, Tenderness, Rebound Extremities: No: Cool, Cyanosis Integumentary: No: Jaundice, Rash Neurological: Yes: Alert, Oriented Labs: CBC, BMP 04/02/17 06:00 04/02/17 06:00 INR, PTT INR 1.06 (0.82-1.09) 04/02/17 06:00 CMP Sodium 141 mmol/L (136-145) 04/02/17 06:00 Potassium 3.9 mmol/L (3.5-5.1) 04/02/17 06:00 Chloride 107 mmol/L (98-107) 04/02/17 06:00 Carbon Dioxide 27 mmol/L (21-32) 04/02/17 06:00 Anion Gap 7 (8-16) L 04/02/17 06:00 BUN 11 mg/dL (7-18) D 04/02/17 06:00 Creatinine 1.3 mg/dL (0.7-1.3) 04/02/17 06:00 Creat Clearance w eGFR 57.75 (>60) 04/02/17 06:00 Random Glucose 96 mg/dL (74-106) 04/02/17 06:00 Calcium 8.1 mg/dL (8.5-10.1) L 04/02/17 06:00 Total Bilirubin 1.1 mg/dL (0.2-1.0) H D 04/02/17 06:00 Direct Bilirubin 0.3 mg/dL (0.0-0.2) H D 04/02/17 06:00 AST 15 U/L (15-37) D 04/02/17 06:00 ALT 32 U/L (12-78) 04/02/17 06:00 Alkaline Phosphatase 83 U/L (45-117) 04/02/17 06:00 Troponin I 0.05 ng/ml (0.00-0.05) 04/01/17 20:15 Total Protein 6.3 g/dl (6.4-8.2) L 04/02/17 06:00 Albumin 3.3 g/dl (3.4-5.0) L 04/02/17 06:00 Lipase 131 U/L (73-393) 04/02/17 06:00 TSH 2.53 uIU/ml (0.358-3.74) 04/02/17 06:00 bili rising, lipase up a bit though still normal Cr up a bit as well - ....Imaging MRI: Report Reviewed (cholecystitis with questionable small layering sludge in distal CBD, mild intrahepatic dilation) Problem List - Problems (1) Calculus of gallbladder with acute and chronic cholecystitis without obstruction Assessment/Plan: NPO/IVF until postop Xarelto held since last dose 9:30am 03/31/17 ok to continue other home meds with sips of water only IV antibiotics per ID, on Zosyn pain meds prn GI/DVT prophylaxis periop MRCP shows possible layering sludge in CBD, along with rising bilirubin raises concern for cbd obstruction GI will do ERCP today Surgery postponed until tomorrow 2pm, pending am repeat labs and assurance of no evidence of postprocedural pancreatitis Patient is aware of and agrees with plan. Code(s): K80.12 - CALCULUS OF GB W ACUTE AND CHRONIC CHOLECYST W/O OBSTRUCTION (2) Atrial flutter Code(s): I48.92 - UNSPECIFIED ATRIAL FLUTTER Qualifiers: Atrial flutter type: atypical Qualified Code(s): I48.4 - Atypical atrial flutter (3) HTN (hypertension) Code(s): I10 - ESSENTIAL (PRIMARY) HYPERTENSION Qualifiers: Hypertension type: essential hypertension Qualified Code(s): I10 - Essential (primary) hypertension (4) BPH (benign prostatic hyperplasia) Code(s): N40.0 - BENIGN PROSTATIC HYPERPLASIA WITHOUT LOWER URINRY TRACT SYMP Qualifiers: Lower urinary tract symptom presence: symptoms present Lower urinary tract symptom detail: weak urinary stream Qualified Code(s): N40.1 - Benign prostatic hyperplasia with lower urinary tract symptoms; R39.12 - Poor urinary stream; R39.12 - Poor urinary stream
[2017-04-02] MEDS ORDERED: IOHEXOL 300 MG/ML INFUS..BTL IV ONE (12:08)
--- NOTE | 2017-04-02 12:36 | PN ---
Progress Note (short form) - Note Progress Note: See ERCP report. No stone present in CBD. Results discussed with Gael Horan and Ceasar.
[2017-04-02] MEDS ORDERED: HYDROmorphone HCL CARPU-JECT 1 MG/1 ML DISP.SYRIN IVPUSH ONE (12:48)
[2017-04-02] MEDS ORDERED: HYDROmorphone HCL CARPU-JECT 2 MG/1 ML DISP.SYRIN ONE (12:49)
--- NOTE | 2017-04-02 13:25 | PN ---
Teaching Attending Note Name of Resident: Spencer Alfaro ATTENDING PHYSICIAN STATEMENT I saw and evaluated the patient. I reviewed the resident's note and discussed the case with the resident. I agree with the resident's findings and plan as documented. SUBJECTIVE: Patient is comfortable with no acute distress. OBJECTIVE: Vital Signs Temperature 97.7 F 04/02/17 12:19 Pulse Rate 69 04/02/17 13:20 Respiratory Rate 20 04/02/17 13:20 Blood Pressure 123/78 04/02/17 13:20 O2 Sat by Pulse Oximetry (%) 100 04/02/17 13:20 CBCD WBC 6.6 K/mm3 (4.0-10.0) 04/02/17 06:00 RBC 4.63 M/mm3 (4.00-5.60) 04/02/17 06:00 Hgb 14.3 GM/dL (11.7-16.9) 04/02/17 06:00 Hct 43.1 % (35.4-49) 04/02/17 06:00 MCV 93.2 fl (80-96) 04/02/17 06:00 MCHC 33.2 g/dl (32.0-35.9) 04/02/17 06:00 RDW 14.1 % (11.9-15.9) 04/02/17 06:00 Plt Count 197 K/MM3 (134-434) 04/02/17 06:00 MPV 8.0 fl (7.5-11.1) 04/02/17 06:00 CMP Sodium 141 mmol/L (136-145) 04/02/17 06:00 Potassium 3.9 mmol/L (3.5-5.1) 04/02/17 06:00 Chloride 107 mmol/L (98-107) 04/02/17 06:00 Carbon Dioxide 27 mmol/L (21-32) 04/02/17 06:00 Anion Gap 7 (8-16) L 04/02/17 06:00 BUN 11 mg/dL (7-18) D 04/02/17 06:00 Creatinine 1.3 mg/dL (0.7-1.3) 04/02/17 06:00 Creat Clearance w eGFR 57.75 (>60) 04/02/17 06:00 Random Glucose 96 mg/dL (74-106) 04/02/17 06:00 Calcium 8.1 mg/dL (8.5-10.1) L 04/02/17 06:00 Total Bilirubin 1.1 mg/dL (0.2-1.0) H D 04/02/17 06:00 AST 15 U/L (15-37) D 04/02/17 06:00 ALT 32 U/L (12-78) 04/02/17 06:00 Alkaline Phosphatase 83 U/L (45-117) 04/02/17 06:00 Total Protein 6.3 g/dl (6.4-8.2) L 04/02/17 06:00 Albumin 3.3 g/dl (3.4-5.0) L 04/02/17 06:00 CARDIAC ENZYMES Troponin I 0.05 ng/ml (0.00-0.05) 04/01/17 20:15 Current Medications Generic Name Dose Route Start Last Admin Trade Name Freq PRN Reason Stop Dose Admin Doxazosin Mesylate 1 mg 04/01/17 22:00 04/01/17 21:21 Cardura - PO 1 mg HS AARON Administration Fentanyl 50 mcg 04/02/17 10:38 Sublimaze Injection - IVPUSH [id number] PRN PAIN Potassium Chloride/Dextrose/Sod Cl 20 meq in 1,000 mls @ 75 mls/hr 03/31/17 22 :15 04/02/17 10:58 D5-1/2ns+20 Meq Kcl - IV 75 mls/hr ASDIR AARON Administration Piperacillin Sod/Tazobactam 100 mls @ 200 mls/hr 04/01/17 12:00 04/02/17 09: 06 Sod 4.5 gm/ Dextrose IVPB 200 mls/hr Q8H-IV AARON Administration Protocol Lactated Ringer's 1,000 mls @ 125 mls/hr 04/02/17 10:45 Lactated Ringers Solution IV ASDIR AARON Metoprolol Succinate 25 mg 04/01/17 10:00 04/02/17 09:06 Toprol Xl - PO 25 mg DAILY AARON Administration Morphine Sulfate 4 mg 03/31/17 23:37 04/02/17 09:39 Morphine Injection - IVPUSH 4 mg Q4H PRN Administration PAIN Ondansetron HCl 4 mg 04/02/17 10:38 Zofran Injection IVPUSH Q6H PRN NAUSEA vVAND/OR VOMITING Promethazine HCl 12.5 mg 04/02/17 10:38 Phenergan Injection - IVPUSH Q6H PRN NAUSEA-FOR RESCUE AFTER 15 MIN Valsartan 40 mg 04/01/17 10:00 04/02/17 09:06 Diovan - PO 40 mg DAILY AARON Administration Home Medications Medication Instructions Recorded Doxazosin Mesylate [Cardura] 1 mg PO HS 03/31/17 Metoprolol Succinate [Toprol Xl] 25 mg PO DAILY 03/31/17 Rivaroxaban [Xarelto -] 20 mg PO DAILY 03/31/17 Valsartan 40 mg PO DAILY 03/31/17 US report noted and reviewed. ASSESSMENT AND PLAN: Patient is a 52 y/o man with a past medical history of Cholelithiasis, Degenerative Disc Disease came in to ED.for having a severe abdominal pain, patient has a hx of cholelithiasis and was scheduled for having surgery this coming Saturday. Presented with acute cholecystitis. # Acute cholecystitis with cholelithiasis on IV abx , Id on the case further management per ID. MRCP completed , s/p ERCP is pending , GI on the case and surgical consult appreciated. Dr. Patricio Jewell at [facility], obtain medical records. # Atrial flutter with [id number] on Xarelto, on Hold since going for sx in am # HTN Uncontrolled continue Toprol 25 qd, Diovan 40 qd and Cardura 1 qhs. Can have his BP meds with small sip of water prior to sx. DVT Px: SCDS, heparin going for cholecystectomy in am
--- NOTE | 2017-04-02 13:46 | PN ---
Progress Note, Physician History of Present Illness: patient stable had mrcp and ercp today stable post ercp - Current Medication List Current Medications: Active Medications Doxazosin Mesylate (Cardura -) 1 mg PO HS [facility] Last Admin: 04/01/17 21:21 Dose: 1 mg Fentanyl (Sublimaze Injection -) 50 mcg IVPUSH [id number] PRN PRN Reason: PAIN Potassium Chloride/Dextrose/Sod Cl (D5-1/2ns+20 Meq Kcl -) 20 meq in 1,000 mls @ 75 mls/hr IV ASDIR [facility] Last Admin: 04/02/17 10:58 Dose: 75 mls/hr Piperacillin Sod/Tazobactam (Sod 4.5 gm/ Dextrose) 100 mls @ 200 mls/hr IVPB Q8H-IV AARON PRN Reason: Protocol Last Admin: 04/02/17 09:06 Dose: 200 mls/hr Lactated Ringer's (Lactated Ringers Solution) 1,000 mls @ 125 mls/hr IV ASDIR [facility] Metoprolol Succinate (Toprol Xl -) 25 mg PO DAILY [facility] Last Admin: 04/02/17 09:06 Dose: 25 mg Morphine Sulfate (Morphine Injection -) 4 mg IVPUSH Q4H PRN PRN Reason: PAIN Last Admin: 04/02/17 09:39 Dose: 4 mg Ondansetron HCl (Zofran Injection) 4 mg IVPUSH Q6H PRN PRN Reason: NAUSEA AND/OR VOMITING Promethazine HCl (Phenergan Injection -) 12.5 mg IVPUSH Q6H PRN PRN Reason: NAUSEA-FOR RESCUE AFTER 15 MIN Valsartan (Diovan -) 40 mg PO DAILY [facility] Last Admin: 04/02/17 09:06 Dose: 40 mg - Objective Vital Signs: Vital Signs Temperature 97.8 F 04/02/17 13:24 Pulse Rate 64 04/02/17 13:24 Respiratory Rate 20 04/02/17 13:24 Blood Pressure 123/78 04/02/17 13:24 O2 Sat by Pulse Oximetry (%) 100 04/02/17 13:24 Constitutional: Yes: No Distress, Calm Cardiovascular: Yes: Regular Rate and Rhythm Respiratory: Yes: Regular, CTA Bilaterally Gastrointestinal: Yes: Normal Bowel Sounds, Soft Musculoskeletal: Yes: WNL Extremities: Yes: WNL Neurological: Yes: Alert, Oriented Psychiatric: Yes: Alert, Oriented Labs: CBC, BMP 04/02/17 06:00 04/02/17 06:00 INR, PTT INR 1.06 (0.82-1.09) 04/02/17 06:00 Assessment/Plan Problem List - Problem (1) Acute cholecystitis Code(s): K81.0 - ACUTE CHOLECYSTITIS (2) Abdominal pain Code(s): R10.9 - UNSPECIFIED ABDOMINAL PAIN Qualifiers: Abdominal location: right upper quadrant Qualified Code(s): R10.11 - Right upper quadrant pain (3) HTN (hypertension) Code(s): I10 - ESSENTIAL (PRIMARY) HYPERTENSION (4) Atrial flutter Code(s): I48.92 - UNSPECIFIED ATRIAL FLUTTER plan continue as per surgery post ercp continue abx rest as per primary team close watch for surgery probably tomorrow
[2017-04-02] MEDS: LACTATED RINGERS SOLUTION 1,000 ML IV SCH (14:15)
--- NOTE | 2017-04-02 17:00 | PN ---
Physical Exam: SUBJECTIVE: Patient seen and examined Pt has improved RUQ abdominal pain controlled with pain meds. He denies n/v/d/c. OBJECTIVE: Vital Signs Period Temp Pulse Resp BP Sys/Galarza Pulse Ox Last 24 Hr 97.7 F-98.8 F 60-75 18-20 97-155/58-118 95-100 GENERAL: The patient is awake, alert, and fully oriented, in no acute distress. HEENT: NC, AT, no scleral icterus NECK: Trachea midline, full range of motion, supple. LUNGS: Breath sounds equal, clear to auscultation bilaterally, no wheezes, no crackles, no accessory muscle use. HEART: Regular rate and rhythm, S1, S2 without murmur, rub or gallop. ABDOMEN: non-distended, soft, moderately tender in RUQ region, normoactive BS EXTREMITIES: 2+ pulses, warm, well-perfused, no edema. NEUROLOGICAL: Cranial nerves II through XII grossly intact. Normal speech, gait not observed. Laboratory Results - last 24 hr 04/01/17 04/02/17 04/02/17 20:15 01:30 06:00 WBC RBC Hgb Hct MCV MCH MCHC RDW Plt Count MPV Neutrophils % Lymphocytes % Monocytes % Eosinophils % Basophils % PT with INR INR PTT (Actin FS) Sodium 141 Potassium 3.9 Chloride 107 Carbon Dioxide 27 Anion Gap 7 L BUN 11 D Creatinine 1.3 Creat Clearance w eGFR 57.75 Random Glucose 96 Calcium 8.1 L Total Bilirubin 1.1 H D Direct Bilirubin AST 15 D ALT 32 Alkaline Phosphatase 83 Troponin I 0.05 Total Protein 6.3 L Albumin 3.3 L Lipase 131 TSH 2.53 Urine Color Ltyellow Urine Appearance Clear Urine pH 6.0 Ur Specific [place] 1.014 Urine Protein Negative Urine Glucose (UA) Negative Urine Ketones Negative Urine Blood Negative Urine Nitrite Negative Urine Bilirubin Negative Urine Urobilinogen Negative Ur Leukocyte Esterase Negative 04/02/17 04/02/17 04/02/17 06:00 06:00 06:00 WBC 6.6 RBC 4.63 Hgb 14.3 Hct 43.1 MCV 93.2 MCH 30.9 MCHC 33.2 RDW 14.1 Plt Count 197 MPV 8.0 Neutrophils % 70.3 Lymphocytes % 15.8 D Monocytes % 10.5 H Eosinophils % 2.7 Basophils % 0.7 PT with INR 12.00 H INR 1.06 PTT (Actin FS) 32.1 Sodium Potassium Chloride Carbon Dioxide Anion Gap BUN Creatinine Creat Clearance w eGFR Random Glucose Calcium Total Bilirubin Direct Bilirubin 0.3 H D AST ALT Alkaline Phosphatase Troponin I Total Protein Albumin Lipase TSH Urine Color Urine Appearance Urine pH Ur Specific [place] Urine Protein Urine Glucose (UA) Urine Ketones Urine Blood Urine Nitrite Urine Bilirubin Urine Urobilinogen Ur Leukocyte Esterase Active Medications Generic Name Dose Route Start Last Admin Trade Name Freq PRN Reason Stop Dose Admin Doxazosin Mesylate 1 mg 04/01/17 22:00 04/01/17 21:21 Cardura - PO 1 mg HS AARON Administration Fentanyl 50 mcg 04/02/17 10:38 Sublimaze Injection - IVPUSH [id number] PRN PAIN Potassium Chloride/Dextrose/Sod Cl 20 meq in 1,000 mls @ 75 mls/hr 03/31/17 22 :15 04/02/17 10:58 D5-1/2ns+20 Meq Kcl - IV 75 mls/hr ASDIR AARON Administration Piperacillin Sod/Tazobactam 100 mls @ 200 mls/hr 04/01/17 12:00 04/02/17 09: 06 Sod 4.5 gm/ Dextrose IVPB 200 mls/hr Q8H-IV AARON Administration Protocol Lactated Ringer's 1,000 mls @ 125 mls/hr 04/02/17 10:45 04/02/17 14:15 Lactated Ringers Solution IV 125 mls/hr ASDIR AARON Administration Metoprolol Succinate 25 mg 04/01/17 10:00 04/02/17 09:06 Toprol Xl - PO 25 mg DAILY AARON Administration Morphine Sulfate 4 mg 03/31/17 23:37 04/02/17 16:17 Morphine Injection - IVPUSH 4 mg Q4H PRN Administration PAIN Ondansetron HCl 4 mg 04/02/17 10:38 Zofran Injection IVPUSH Q6H PRN NAUSEA AND/OR VOMITING Promethazine HCl 12.5 mg 04/02/17 10:38 Phenergan Injection - IVPUSH Q6H PRN NAUSEA-FOR RESCUE AFTER 15 MIN Valsartan 40 mg 04/01/17 10:00 04/02/17 09:06 Diovan - PO 40 mg DAILY AARON Administration ASSESSMENT/PLAN: 52M w/ hx of cholelithiasis, degenerative disc disease, and atrial flutter who presented with acute abdominal pain, admitted for acute cholecystitis. #acute cholecystitis -US abdomen: findings consistent with cholecystitis. Abnormal 8mm CBD dilation. -MRCP: biliary sludge, no definite gallstones in CBD -s/p ERCP 04/02/17 which showed no stones in the CBD -per surgery, pt scheduled for lap cristian elias -continue to hold xarelto -D5-1/2 NS @ 75 -pain control with morphine, anti-emetics PRN -continue zosyn as per ID -cleared for surgery as per cards #elevated trop -trops downtrended from 0.05 --> 0.04 #Atrial flutter -cards on board, recs appreciated -xarelto held for surgery -rate controlled with toprol #FEN/ppx -D5-1/2 NS @ 75 -electrolytes wnl -NPO for surgery -xarelto held, SCDs -no GI ppx indicated Case discussed with attending, Dr. Pike. -Spencer Alfaro MD PGY1 Visit type - Emergency Visit Emergency Visit: Yes ED Registration Date: 04/01/17 Care time: The patient presented to the Emergency Department on the above date and was hospitalized for further evaluation of their emergent condition. - New Patient This patient is new to me today: No - Critical Care Critical Care patient: No
[2017-04-02] MEDS ORDERED: GLYCERIN 1 RECTAL SUPPOSITORY, ADULT RC ONE ×2 (19:15→21:30)
[2017-04-02] MEDS ORDERED: PROMETHAZINE HCL 25 MG/1 ML VIAL IVPB PRN (21:21)
[2017-04-02] MEDS: DOXAZOSIN MESYLATE 1 MG TABLET PO SCH (22:26)
[2017-04-03] MEDS ORDERED: PT OWN MED DRAWER 7, Y5N ONE ×4 (00:33→20:34)
[2017-04-03] MEDS: PIPERACILLIN/TAZOB 4.5 GM 4.5 GM in DEXTROSE 5%-WATER - 100 ML IVPB SCH ×3 (01:01→18:50)
[2017-04-03] MEDS: morphine CARPU-JECT 10 MG/1 ML DISP.SYRIN IVPUSH PRN ×2 (07:07→12:32)
[2017-04-03 08:39] LABS: BASO % 0.3 % (0-2.0); EOS % 0.3 % (0-4.5); LYMPH % 16.4 % (8-40); MCH 30.9 pg (25.7-33.7); MCHC 33.3 g/dl (32.0-35.9); MEAN CELL VOLUME 92.9 fl (80-96); MEAN PLT VOLUME 7.8 fl (7.5-11.1); PLATELET COUNT 204 K/MM3 (134-434); RBC 4.52 M/mm3 (4.00-5.60); RDW 13.6 % (11.9-15.9); WHITE BLOOD COUNT 6.3 K/mm3 (4.0-10.0)
[2017-04-03 08:47] LABS: INR 1.15 (0.82-1.09)
[2017-04-03 09:10] LABS: CHLORIDE 105 mmol/L (98-107); POTASSIUM 3.8 mmol/L (3.5-5.1); SODIUM 141 mmol/L (136-145)
[2017-04-03] MEDS: VALSARTAN 40 MG TABLET (FP) PO SCH (09:11)
[2017-04-03] MEDS: METOPROLOL SUCCINATE 25 MG TAB.SR.24H (FP) PO SCH (09:12)
[2017-04-03 09:21] LABS: ALBUMIN 3.1 g/dl (3.4-5.0); ALK PHOS 105 U/L (45-117); ANION GAP 9 (8-16); BILIRUBIN,TOTAL 1.1 mg/dL (0.2-1.0); BLOOD UREA NITROGEN 16 mg/dL (7-18); CALCIUM 8.5 mg/dL (8.5-10.1); CO2 27 mmol/L (21-32); CREATININE 1.2 mg/dL (0.7-1.3); GLUCOSE,RANDOM 84 mg/dL (74-106); PHOSPHOROUS 2.5 mg/dL (2.5-4.9); SGOT/AST 28 U/L (15-37); SGPT/ALT 53 U/L (12-78); TOT PROT 6.1 g/dl (6.4-8.2)
[2017-04-03 09:55] LABS: LIPASE 106 U/L (73-393)
[2017-04-03] MEDS: LACTATED RINGERS SOLUTION 1,000 ML IV SCH ×3 (13:08→19:00)
[2017-04-03] MEDS ORDERED: BUPIVACAINE HCL/PF 0.5% (5MG/ML) 10 ML VIAL ONE (13:51)
[2017-04-03] MEDS ORDERED: ONDANSETRON 4 MG/2 ML VIAL IVPUSH PRN (14:06)
[2017-04-03] MEDS ORDERED: fentaNYL CITRATE 250 MCG/5 ML VIAL ONE (14:34)
[2017-04-03] MEDS ORDERED: MIDAZOLAM HCL 2 MG/2 ML SINGLE DOSE VIAL ONE (14:35)
[2017-04-03] MEDS ORDERED: LIDOCAINE HCL/PF 2% SDV 5ML VIAL ONE (14:36)
[2017-04-03] MEDS ORDERED: KETOROLAC TROMETHAMINE 30 MG/1 ML VIAL ONE (14:36)
[2017-04-03] MEDS ORDERED: DEXAMETHASONE SOD PHOSPHATE 4 MG/1 ML VIAL ONE (14:36)
[2017-04-03] MEDS ORDERED: NEOSTIGMINE METHYLSULFATE 0.5 MG/ML - 10 ML MDV ONE (14:38)
[2017-04-03] MEDS ORDERED: ROCURONIUM BROMIDE 50 MG/5 ML VIAL ONE (14:52)
[2017-04-03] MEDS ORDERED: PROPOFOL 20 ML ONE (14:52)
--- NOTE | 2017-04-03 14:53 | PN ---
Progress Note, Physician History of Present Illness: stable in pacu post choleycystectomy - Current Medication List Current Medications: Active Medications Doxazosin Mesylate (Cardura -) 1 mg PO HS [facility] Last Admin: 04/02/17 22:26 Dose: 1 mg Fentanyl (Sublimaze Injection -) 50 mcg IVPUSH [id number] PRN PRN Reason: PAIN Fentanyl (Sublimaze Injection -) 50 mcg IVPUSH [id number] PRN PRN Reason: PAIN-PACU ORDER X 4 DOSES ONLY Potassium Chloride/Dextrose/Sod Cl (D5-1/2ns+20 Meq Kcl -) 20 meq in 1,000 mls @ 75 mls/hr IV ASDIR [facility] Last Admin: 04/02/17 22:26 Dose: Not Given Piperacillin Sod/Tazobactam (Sod 4.5 gm/ Dextrose) 100 mls @ 200 mls/hr IVPB Q8H-IV AARON PRN Reason: Protocol Last Admin: 04/03/17 09:11 Dose: 200 mls/hr Lactated Ringer's (Lactated Ringers Solution) 1,000 mls @ 75 mls/hr IV ASDIR [facility] Metoprolol Succinate (Toprol Xl -) 25 mg PO DAILY [facility] Last Admin: 04/03/17 09:12 Dose: 25 mg Morphine Sulfate (Morphine Injection -) 4 mg IVPUSH Q4H PRN PRN Reason: PAIN Last Admin: 04/03/17 12:32 Dose: 4 mg Ondansetron HCl (Zofran Injection) 4 mg IVPUSH Q6H PRN PRN Reason: NAUSEA AND/OR VOMITING Promethazine HCl (Phenergan Injection -) 12.5 mg IVPB Q6H PRN PRN Reason: NAUSEA-FOR RESCUE AFTER 15 MIN Valsartan (Diovan -) 40 mg PO DAILY [facility] Last Admin: 04/03/17 09:11 Dose: 40 mg - Objective Vital Signs: Vital Signs Temperature 97.8 F 04/03/17 10:00 Pulse Rate 72 04/03/17 10:00 Respiratory Rate 18 04/03/17 10:00 Blood Pressure 152/74 04/03/17 10:00 O2 Sat by Pulse Oximetry (%) 99 04/03/17 13:00 Constitutional: Yes: No Distress, Calm Cardiovascular: Yes: Regular Rate and Rhythm Respiratory: Yes: Regular, CTA Bilaterally Musculoskeletal: Yes: WNL Extremities: Yes: WNL Wound/Incision: Yes: Dressing Dry and Intact Neurological: Yes: Alert, Oriented Psychiatric: Yes: Alert, Oriented Labs: CBC, BMP 04/03/17 06:30 04/03/17 06:30 INR, PTT INR 1.15 (0.82-1.09) H 04/03/17 06:30 Assessment/Plan Problem List - Problem (1) Acute cholecystitis Code(s): K81.0 - ACUTE CHOLECYSTITIS (2) Abdominal pain Code(s): R10.9 - UNSPECIFIED ABDOMINAL PAIN Qualifiers: Abdominal location: right upper quadrant Qualified Code(s): R10.11 - Right upper quadrant pain (3) HTN (hypertension) Code(s): I10 - ESSENTIAL (PRIMARY) HYPERTENSION (4) Atrial flutter Code(s): I48.92 - UNSPECIFIED ATRIAL FLUTTER plan continue as per surgery continue abx continue monitoring rest as per primary and surgical team
[2017-04-03] MEDS ORDERED: ESMOLOL HCL 200,000 MCG/20 ML VIAL ONE (15:21)
[2017-04-03] MEDS ORDERED: LABETALOL HCL 5 MG/1 ML (100MG/20 ML VIAL) ONE (15:21)
--- NOTE | 2017-04-03 15:46 | PN ---
Progress Note, Physician - Current Medication List Current Medications: Active Medications Doxazosin Mesylate (Cardura -) 1 mg PO HS [facility] Last Admin: 04/02/17 22:26 Dose: 1 mg Fentanyl (Sublimaze Injection -) 50 mcg IVPUSH [id number] PRN PRN Reason: PAIN Fentanyl (Sublimaze Injection -) 50 mcg IVPUSH [id number] PRN PRN Reason: PAIN-PACU ORDER X 4 DOSES ONLY Potassium Chloride/Dextrose/Sod Cl (D5-1/2ns+20 Meq Kcl -) 20 meq in 1,000 mls @ 75 mls/hr IV ASDIR [facility] Last Admin: 04/02/17 22:26 Dose: Not Given Piperacillin Sod/Tazobactam (Sod 4.5 gm/ Dextrose) 100 mls @ 200 mls/hr IVPB Q8H-IV AARON PRN Reason: Protocol Last Admin: 04/03/17 09:11 Dose: 200 mls/hr Lactated Ringer's (Lactated Ringers Solution) 1,000 mls @ 75 mls/hr IV ASDIR [facility] Metoprolol Succinate (Toprol Xl -) 25 mg PO DAILY [facility] Last Admin: 04/03/17 09:12 Dose: 25 mg Morphine Sulfate (Morphine Injection -) 4 mg IVPUSH Q4H PRN PRN Reason: PAIN Last Admin: 04/03/17 12:32 Dose: 4 mg Ondansetron HCl (Zofran Injection) 4 mg IVPUSH Q6H PRN PRN Reason: NAUSEA AND/OR VOMITING Promethazine HCl (Phenergan Injection -) 12.5 mg IVPB Q6H PRN PRN Reason: NAUSEA-FOR RESCUE AFTER 15 MIN Valsartan (Diovan -) 40 mg PO DAILY [facility] Last Admin: 04/03/17 09:11 Dose: 40 mg - Objective Vital Signs: Vital Signs Temperature 97.8 F 04/03/17 10:00 Pulse Rate 72 04/03/17 10:00 Respiratory Rate 18 04/03/17 10:00 Blood Pressure 152/74 04/03/17 10:00 O2 Sat by Pulse Oximetry (%) 99 04/03/17 13:00 Labs: CBC, BMP 04/03/17 06:30 04/03/17 06:30 INR, PTT INR 1.15 (0.82-1.09) H 04/03/17 06:30 Problem List - Problems (1) Anticoagulant long-term use Code(s): Z79.01 - INTERMEDIATE (CURRENT) USE OF ANTICOAGULANTS (2) Pre-operative cardiovascular examination Code(s): Z01.810 - ENCOUNTER FOR PREPROCEDURAL CARDIOVASCULAR EXAMINATION (3) Acute cholecystitis Code(s): K81.0 - ACUTE CHOLECYSTITIS (4) Atrial flutter Code(s): I48.92 - UNSPECIFIED ATRIAL FLUTTER Qualifiers: Atrial flutter type: atypical Qualified Code(s): I48.4 - Atypical atrial flutter (5) Dilated bile duct Code(s): K83.8 - OTHER SPECIFIED DISEASES OF BILIARY TRACT (6) HTN (hypertension) Code(s): I10 - ESSENTIAL (PRIMARY) HYPERTENSION Qualifiers: Hypertension type: essential hypertension Qualified Code(s): I10 - Essential (primary) hypertension (7) Cholelithiasis and acute cholecystitis without obstruction Code(s): K80.00 - CALCULUS OF GALLBLADDER W ACUTE CHOLECYST W/O OBSTRUCTION Assessment/Plan 1. Acute cholecystitis with cholelithiasis ruled out for choledocholithiasis via ERCP 2. Pre-operative cardiovascular evaluation 3. Persistent atrial flutter [id number] on NOAC (Xarelto) - stopped 4. HTN/HCVD PLAN: 1. Empiric antibiotic 2. Laparoscopic cholecystectomy today 3. Xarelto held pre-op and to be resumed once post-op hemostasis achieved 4. Continue Toprol 25 qd, Diovan 40 qd and Cardura 1 qhs 5. Given absence of symptoms of acute coronary syndrome, decompensated CHF or malignant arrhythmia, there are no cardiovascular contraindications from proceeding with surgical intervention including ERCP and cholecystectomy Feather Separator: Dr. Patricio Jewell at [facility]
[2017-04-03] MEDS ORDERED: BUPIVACAINE HCL/PF 0.5% (5MG/ML) 10 ML VIAL IJ ONE (16:32)
--- NOTE | 2017-04-03 17:05 | OP ---
Operative Note - Note: Operative Date: 04/03/17 Pre-Operative Diagnosis: acute and chronic cholecystitis Operation: laparoscopic cholecystectomy Findings: distended inflamed gallbladder, partly intrahepatic, critical view identified Post-Operative Diagnosis: Same as Pre-op Surgeon: Jose Alberto Horan Lobster Man: Gino Fischer (w/Sunshine Hinojosa MS3) Anesthesiologist/SOLE ROUNDER: Ming Márquez Anesthesia: General, Local (20ml 0.5% marcaine) Specimens Removed: gallbladder to pathology Estimated Blood Loss (mls): 10 Fluid Volume Replaced (mls): 700 (crystalloid) Operative Report Dictated: Yes
[2017-04-03] MEDS ORDERED: ACETAMINOPHEN 325 MG TABLET (FP) PO PRN ×2 (17:09→18:23)
[2017-04-03] MEDS ORDERED: oxyCODONE HCL 5 MG TABLET PO PRN (17:10)
[2017-04-03] MEDS ORDERED: morphine CARPU-JECT 10 MG/1 ML DISP.SYRIN IVPUSH PRN ×2 (17:11→18:23)
[2017-04-03] MEDS ORDERED: D5-1/2NS+20 MEQ KCL - 20 MEQ/1,000 ML INFUS.BAG IV SCH (17:13)
[2017-04-03] MEDS ORDERED: HYDROmorphone HCL CARPU-JECT 2 MG/1 ML DISP.SYRIN ONE (17:20)
[2017-04-03] MEDS: HYDROmorphone HCL CARPU-JECT 2 MG/1 ML DISP.SYRIN IVPUSH PRN ×3 (17:45→18:06)
--- NOTE | 2017-04-03 17:45 | PN ---
Physical Exam: SUBJECTIVE: Patient seen and examined Pt has improved RUQ abdominal pain controlled with pain meds. He denies n/v/d/c. OBJECTIVE: Vital Signs Period Temp Pulse Resp BP Sys/Galarza Pulse Ox Last 24 Hr 97.8 F-98.5 F 72-74 18-20 131-152/74-94 98-100 GENERAL: The patient is awake, alert, and fully oriented, in no acute distress. HEENT: NC, AT, no scleral icterus NECK: Trachea midline, full range of motion, supple. LUNGS: Breath sounds equal, clear to auscultation bilaterally, no wheezes, no crackles, no accessory muscle use. HEART: Regular rate and rhythm, S1, S2 without murmur, rub or gallop. ABDOMEN: non-distended, soft, moderately tender in RUQ and epigastric regions, normoactive BS EXTREMITIES: 2+ pulses, warm, well-perfused, no edema. NEUROLOGICAL: Cranial nerves II through XII grossly intact. Normal speech, gait not observed. Laboratory Results - last 24 hr 04/03/17 04/03/17 04/03/17 06:30 06:30 06:30 WBC 6.3 RBC 4.52 Hgb 14.0 Hct 42.0 MCV 92.9 MCH 30.9 MCHC 33.3 RDW 13.6 Plt Count 204 MPV 7.8 Neutrophils % 72.0 Lymphocytes % 16.4 Monocytes % 11.0 H Eosinophils % 0.3 D Basophils % 0.3 PT with INR 13.00 H INR 1.15 H Sodium 141 Potassium 3.8 Chloride 105 Carbon Dioxide 27 Anion Gap 9 BUN 16 D Creatinine 1.2 Creat Clearance w eGFR > 60 Random Glucose 84 Calcium 8.5 Phosphorus 2.5 Magnesium 2.0 Total Bilirubin 1.1 H Direct Bilirubin AST 28 D ALT 53 D Alkaline Phosphatase 105 D Total Protein 6.1 L Albumin 3.1 L Triglycerides Cancelled Cholesterol Cancelled Total LDL Cholesterol Cancelled HDL Cholesterol Cancelled Lipase 106 04/03/17 04/03/17 06:30 09:25 WBC RBC Hgb Hct MCV MCH MCHC RDW Plt Count MPV Neutrophils % Lymphocytes % Monocytes % Eosinophils % Basophils % PT with INR INR Sodium Potassium Chloride Carbon Dioxide Anion Gap BUN Creatinine Creat Clearance w eGFR Random Glucose Calcium Phosphorus Magnesium Total Bilirubin Direct Bilirubin 0.3 H AST ALT Alkaline Phosphatase Total Protein Albumin Triglycerides Cholesterol Total LDL Cholesterol HDL Cholesterol Lipase Cancelled Active Medications Generic Name Dose Route Start Last Admin Trade Name Freq PRN Reason Stop Dose Admin Acetaminophen 650 mg 04/03/17 17:09 Tylenol - PO Q6H PRN PAIN Docusate Sodium 100 mg 04/03/17 22:00 Colace - PO BID AARON Doxazosin Mesylate 1 mg 04/01/17 22:00 04/02/17 22:26 Cardura - PO 1 mg HS AARON Administration Fentanyl 50 mcg 04/02/17 10:38 Sublimaze Injection - IVPUSH [id number] PRN PAIN Hydromorphone HCl 0.5 mg 04/03/17 17:18 Dilaudid Injection - IVPUSH [id number] PRN PAIN-PACU ORDER X 4 DOSES ONLY Piperacillin Sod/Tazobactam 100 mls @ 200 mls/hr 04/01/17 12:00 04/03/17 09: 11 Sod 4.5 gm/ Dextrose IVPB 200 mls/hr Q8H-IV AARON Administration Protocol Lactated Ringer's 1,000 mls @ 75 mls/hr 04/03/17 14:15 Lactated Ringers Solution IV ASDIR AARON Potassium Chloride/Dextrose/Sod Cl 20 meq in 1,000 mls @ 100 mls/hr 04/03/17 17:13 D5-1/2ns+20 Meq Kcl - IV ASDIR AARON Metoprolol Succinate 25 mg 04/01/17 10:00 04/03/17 09:12 Toprol Xl - PO 25 mg DAILY AARON Administration Morphine Sulfate 2 mg 04/03/17 17:11 Morphine Injection - IVPUSH Q3H PRN BREAKTHROUGH PAIN Ondansetron HCl 4 mg 04/03/17 14:06 Zofran Injection IVPUSH Q6H PRN NAUSEA AND/OR VOMITING Oxycodone HCl 5 mg 04/03/17 17:10 Roxicodone - PO Q4H PRN PAIN LEVEL 7 - 10 Promethazine HCl 12.5 mg 04/02/17 21:21 Phenergan Injection - IVPB Q6H PRN NAUSEA-FOR RESCUE AFTER 15 MIN Valsartan 40 mg 04/01/17 10:00 04/03/17 09:11 Diovan - PO 40 mg DAILY AARON Administration ASSESSMENT/PLAN: 52M w/ hx of cholelithiasis, degenerative disc disease, and atrial flutter who presented with acute abdominal pain, admitted for acute cholecystitis. #acute cholecystitis -US abdomen: findings consistent with cholecystitis. Abnormal 8mm CBD dilation. -MRCP: biliary sludge, no definite gallstones in CBD -T bili of 1.1 -s/p ERCP 04/02/17 which showed no stones in the CBD -per surgery, pt underwent lap cristian today -per surgery, continue to hold xarelto for several days -pain control -continue abx as per surgery #elevated trop -trops downtrended from 0.05 --> 0.04 #Atrial flutter -cards on board, recs appreciated -xarelto held as per surgery -rate controlled with toprol #FEN/ppx -fluids -electrolytes wnl -NPO -xarelto held, SCDs -no GI ppx indicated Case discussed with attending, Dr. Holloway. -Spencer Alfaro MD PGY1 Visit type - Emergency Visit Emergency Visit: Yes ED Registration Date: 04/01/17 Care time: The patient presented to the Emergency Department on the above date and was hospitalized for further evaluation of their emergent condition. - New Patient This patient is new to me today: No - Critical Care Critical Care patient: No
[2017-04-03] MEDS ORDERED: hydrALAZINE HCL 20 MG/ML VIAL IVPUSH ONE (18:15)
[2017-04-03] MEDS: D5-1/2NS+20 MEQ KCL - 20 MEQ/1,000 ML INFUS.BAG IV SCH (19:12)
--- NOTE | 2017-04-03 20:20 | PN ---
Teaching Attending Note Name of Resident: Spencer Alfaro ATTENDING PHYSICIAN STATEMENT I saw and evaluated the patient. I reviewed the resident's note and discussed the case with the resident. I agree with the resident's findings and plan as documented. SUBJECTIVE:sen at 1 pm no fever ro chills , abd pain has improved OBJECTIVE: NAD Cv: RRR Lung s: CTAB Abd: soft, ND , TTP in RUQ , no rebound Ext: no edema ASSESSMENT AND PLAN: Patient is a 52 y/o man with a past medical history of Cholelithiasis, Degenerative Disc Disease presented with abd pain and was found to have acute cholecystitis 1- acute cholecystitis , with possible passed stone, and CBD dilation . No CBD stone on ERCP. lap CCY today no need for ABx hold off xarelto x 3 days per sx pain control IVF 2- HTN: cont meds 3- A fib: hold xarelto x 3 days post op cont BB 4- HLOC
[2017-04-03] MEDS: DOCUSATE SODIUM 100 MG CAPSULE (FP) PO SCH (21:36)
[2017-04-03] MEDS ORDERED: DOXAZOSIN MESYLATE 1 MG TABLET PO SCH (22:00)
[2017-04-03] MEDS ORDERED: DOCUSATE SODIUM 100 MG CAPSULE (FP) PO SCH (22:00)
[2017-04-03] MEDS: oxyCODONE HCL 5 MG TABLET PO PRN (23:23)
[2017-04-04] MEDS: PIPERACILLIN/TAZOB 4.5 GM 4.5 GM in DEXTROSE 5%-WATER - 100 ML IVPB SCH ×2 (02:30→09:19)
[2017-04-04] MEDS ORDERED: PT OWN MED DRAWER 7, Y5N ONE ×2 (03:34→09:17)
[2017-04-04] MEDS: oxyCODONE HCL 5 MG TABLET PO PRN (05:56)
[2017-04-04 07:41] LABS: BASO % 0.3 % (0-2.0); EOS % 0.1 % (0-4.5); HEMATOCRIT 40.9 % (35.4-49); HEMOGLOBIN 13.7 GM/dL (11.7-16.9); LYMPH % 12.7 % (8-40); MCH 31.2 pg (25.7-33.7); MCHC 33.4 g/dl (32.0-35.9); MEAN CELL VOLUME 93.4 fl (80-96); MEAN PLT VOLUME 7.5 fl (7.5-11.1); MONO % 9.9 % (3.8-10.2); PLATELET COUNT 184 K/MM3 (134-434); RBC 4.38 M/mm3 (4.00-5.60); RDW 13.9 % (11.9-15.9); WHITE BLOOD COUNT 8.7 K/mm3 (4.0-10.0)
[2017-04-04 08:04] LABS: INR 1.12 (0.82-1.09); PROTHROMBIN TIME (PATIENT) 12.7 SEC (9.98-11.88)
[2017-04-04 08:21] LABS: CHLORIDE 103 mmol/L (98-107); POTASSIUM 4.1 mmol/L (3.5-5.1); SODIUM 137 mmol/L (136-145)
[2017-04-04 08:30] LABS: ALBUMIN 3.6 g/dl (3.4-5.0); ALK PHOS 94 U/L (45-117); ANION GAP 7 (8-16); BILIRUBIN,DIRECT 0.3 mg/dL (0.0-0.2); BILIRUBIN,TOTAL 1.1 mg/dL (0.2-1.0); BLOOD UREA NITROGEN 15 mg/dL (7-18); CO2 27 mmol/L (21-32); CREATININE 1.4 mg/dL (0.7-1.3); GLUCOSE,RANDOM 104 mg/dL (74-106); SGOT/AST 54 U/L (15-37); SGPT/ALT 77 U/L (12-78); TOT PROT 6.5 g/dl (6.4-8.2)
[2017-04-04] MEDS: D5-1/2NS+20 MEQ KCL - 20 MEQ/1,000 ML INFUS.BAG IV SCH (08:30)
[2017-04-04] MEDS: DOCUSATE SODIUM 100 MG CAPSULE (FP) PO SCH (09:19)
[2017-04-04] MEDS ORDERED: ACETAMINOPHEN WITH CODEINE 300MG/30MG TABLET PO PRN (09:48)
--- NOTE | 2017-04-04 09:57 | PN ---
Progress Note, Physician Chief Complaint: epigastric pain History of Present Illness: Pt seen and examined sitting at edge of bed, feeling better. Had some breakfast , tolerating po. Voided and had BM. Some pain, more with deep breathing, controlled with po meds. OOB this am, about to ambulate. - Current Medication List Current Medications: Active Medications Acetaminophen (Tylenol -) 650 mg PO Q6H PRN PRN Reason: PAIN Last Admin: 04/03/17 23:25 Dose: 650 mg Acetaminophen/Codeine Phosphate (Tylenol # 3 -) 1 tab PO Q4H PRN PRN Reason: SEVERE PAIN Docusate Sodium (Colace -) 100 mg PO BID [facility] Last Admin: 04/04/17 09:19 Dose: 100 mg Doxazosin Mesylate (Cardura -) 1 mg PO HS [facility] Last Admin: 04/03/17 21:36 Dose: 1 mg Metoprolol Succinate (Toprol Xl -) 25 mg PO DAILY [facility] Last Admin: 04/04/17 09:19 Dose: 25 mg Valsartan (Diovan -) 40 mg PO DAILY [facility] Last Admin: 04/04/17 09:19 Dose: 40 mg - Objective Vital Signs: Vital Signs Temperature 97.8 F 04/04/17 06:00 Pulse Rate 68 04/04/17 06:00 Respiratory Rate 20 04/04/17 06:00 Blood Pressure 154/69 04/04/17 06:00 O2 Sat by Pulse Oximetry (%) 100 04/03/17 21:00 Constitutional: Yes: Well Nourished, No Distress, Calm Eyes: Yes: Conjunctiva Clear. No: Sclera Icterus Cardiovascular: Yes: Regular Rate and Rhythm (with occasional ectopic beats). No: Bradycardia, Tachycardia Respiratory: Yes: Regular, CTA Bilaterally, Other (excellent effort on IS - 2500ml) Gastrointestinal: Yes: Normal Bowel Sounds, Soft, Tenderness (mild RUQ and epigastric, much better than preop, mild incisional at umbilicus). No: Distention Extremities: No: Cool, Cyanosis Integumentary: Yes: Incision (x4 dressed). No: Jaundice Wound/Incision: Yes: Steri Strips (under dressings), Dressing Dry and Intact (x4 ). No: Dressing Removed Neurological: Yes: Alert, Oriented. No: Unsteady Gait Labs: CBC, BMP 04/04/17 06:30 04/04/17 06:30 INR, PTT INR 1.12 (0.82-1.09) 04/04/17 06:30 CMP Sodium 137 mmol/L (136-145) 04/04/17 06:30 Potassium 4.1 mmol/L (3.5-5.1) 04/04/17 06:30 Chloride 103 mmol/L (98-107) 04/04/17 06:30 Carbon Dioxide 27 mmol/L (21-32) 04/04/17 06:30 Anion Gap 7 (8-16) L 04/04/17 06:30 BUN 15 mg/dL (7-18) 04/04/17 06:30 Creatinine 1.4 mg/dL (0.7-1.3) H 04/04/17 06:30 Creat Clearance w eGFR 53.01 (>60) 04/04/17 06:30 Random Glucose 104 mg/dL (74-106) D 04/04/17 06:30 Calcium 8.0 mg/dL (8.5-10.1) L 04/04/17 06:30 Total Bilirubin 1.1 mg/dL (0.2-1.0) H 04/04/17 06:30 Direct Bilirubin 0.3 mg/dL (0.0-0.2) H 04/04/17 06:30 AST 54 U/L (15-37) H D 04/04/17 06:30 ALT 77 U/L (12-78) D 04/04/17 06:30 Alkaline Phosphatase 94 U/L (45-117) 04/04/17 06:30 Total Protein 6.5 g/dl (6.4-8.2) 04/04/17 06:30 Albumin 3.6 g/dl (3.4-5.0) 04/04/17 06:30 bili stable, wbc normal Problem List - Problems (1) Calculus of gallbladder with acute and chronic cholecystitis without obstruction Assessment/Plan: POD1 s/p laparoscopic cholecystectomy doing well ambulating, voiding, + BM, tolerating po pain controlled with oral meds pt has used T#3 in past with good effect and no side effects incisions dressed and clean appropriate tenderness last antibiotic dose going now d/c fluids and IV meds Tylenol and T#3 prn for pain - Rx for T#3 sent to pt's pharmacy d/c home after lunch to f/u in 2 weeks instructions noted in d/c plan pt to HOLD XARELTO until Saturday 04/08, then may resume Code(s): K80.12 - CALCULUS OF GB W ACUTE AND CHRONIC CHOLECYST W/O OBSTRUCTION (2) Atrial flutter Code(s): I48.92 - UNSPECIFIED ATRIAL FLUTTER Qualifiers: Atrial flutter type: atypical Qualified Code(s): I48.4 - Atypical atrial flutter (3) HTN (hypertension) Code(s): I10 - ESSENTIAL (PRIMARY) HYPERTENSION Qualifiers: Hypertension type: essential hypertension Qualified Code(s): I10 - Essential (primary) hypertension (4) BPH (benign prostatic hyperplasia) Code(s): N40.0 - BENIGN PROSTATIC HYPERPLASIA WITHOUT LOWER URINRY TRACT SYMP Qualifiers: Lower urinary tract symptom presence: symptoms present Lower urinary tract symptom detail: weak urinary stream Qualified Code(s): N40.1 - Benign prostatic hyperplasia with lower urinary tract symptoms; R39.12 - Poor urinary stream; R39.12 - Poor urinary stream
[2017-04-04] MEDS ORDERED: METOPROLOL SUCCINATE 25 MG TAB.SR.24H (FP) PO SCH (10:00)
[2017-04-04] MEDS ORDERED: VALSARTAN 40 MG TABLET (FP) PO SCH (10:00)
--- NOTE | 2017-04-04 10:31 | OP ---
DATE OF OPERATION: 04/03/2017 PREOPERATIVE DIAGNOSIS: Acute and chronic cholecystitis. POSTOPERATIVE DIAGNOSIS: Acute and chronic cholecystitis. PROCEDURE PERFORMED: Laparoscopic cholecystectomy. SURGEON: Jose Alberto Horan M.D. ASSISTANTS: Gino Fischer MD, and Erna Burgess MS3. ANESTHESIA: General endotracheal and local, 20 mL of 0.5% Marcaine. ESTIMATED BLOOD LOSS: 10 mL. FLUIDS: 700 mL of crystalloid. SPECIMEN: Gallbladder to Pathology. FINDINGS: A distended, inflamed gallbladder which was partly intrahepatic. The critical view was identified. DISPOSITION: Stable and extubated to PACU. INDICATIONS FOR PROCEDURE: The patient is a 52-year-old male with hypertension and atrial flutter, on Xarelto, with a known history of cholelithiasis and biliary colic, who had a planned robotic cholecystectomy scheduled for next week at an outside hospital, who initially presented to the [facility] emergency room with acute onset of epigastric pain radiating across both sides of his upper abdomen, associated with sweating but no other symptoms. In the emergency room, his white count and liver function tests were essentially normal. His lipase was normal. Ultrasound showed small gallstones, with a thickened gallbladder wall, a small amount of pericholecystic fluid and a dilated common bile duct at approximately 8.5 mm, with a positive Lopez sign. He was given IV fluids, started on Zosyn and transferred to [facility] for MRCP and GI consultation for possible ERCP. His last dose of Xarelto was 9:30 in the morning on March 31. On April 01 he underwent MRCP with findings of sludge and multiple layering stones in the gallbladder, with wall edema and pericholecystic fluid consistent with cholecystitis. He also had mild intrahepatic biliary ductal dilation, with a CBD of 7 to 8 mm, and questionable small amount of nonocclusive layering sludge in the distal common bile duct. The risks, benefits and alternatives of laparoscopic, possible open cholecystectomy had been discussed with the patient, including but not limited to bleeding, infection, injury to adjacent structures, bile leak or ductal injury, intra-abdominal abscess, hernia, need for further procedures, and . Alternatives inclusive of antibiotics, delayed or no surgery, with attendant risks of ascending infection, sepsis, recurrence, pancreatitis and , were also discussed. The patient does desire to proceed with laparoscopic, possible open cholecystectomy. Informed consent has already been signed. With these MRCP findings, GI was originally not inclined to perform ERCP, as his liver function tests and lipase remained normal on the 2nd labs. However, yesterday his bilirubin magno a little bit to just over normal, as well as his direct bilirubin and his lipase, although still normal, was also much higher than it was initially. The patient still had pain and tenderness, and Dr. Bass took the patient for ERCP instead of laparoscopic cholecystectomy yesterday, at which he found no stones in the distal common bile duct, but signs that the patient may have passed 1 or more stones previously, with an edematous papilla and a slightly dilated duct. He did not perform sphincterotomy, given the patient was only 48 hours off of his Xarelto and again, no stones were found in the distal CBD. Labs were repeated again this morning, with liver function tests and lipase remaining stable. His total bilirubin is still 1.1, but it did not rise after the ERCP. In fact, the lipase is coming down. The patient is now brought to the operating room to proceed with laparoscopic possible open cholecystectomy. OPERATIVE TECHNIQUE: The patient was brought to the operating room and laid supine on the operating table. Sequential compression devices were applied to bilateral lower extremities. As the patient had been on steady doses of Zosyn for the last 2 days, no additional antibiotic was given in the emergency room, immediately prior to the OR. The patient's abdominal hair had been clipped in the holding area. After induction and intubation by Anesthesia, the patient's abdomen was prepped and draped in sterile fashion. A small supraumbilical midline incision was made with a scalpel and carried into the subcutaneous tissues with electrocautery, until the abdominal wall fascia was identified, scored and elevated with Shannan clamps. The tip of a clamp was used to enter the peritoneum bluntly, and a fingertip was inserted to ensure entry into the peritoneal cavity and the absence of any underlying adhesions. A stay suture of 0 Vicryl in [id number] fashion was placed in the fascia for later closure. A Margie trocar was introduced directly into the abdominal cavity and secured in place with the balloon. The abdomen was insufflated with carbon dioxide, and the laparoscope inserted to inspect the abdominal cavity. The patient was placed in reverse Trendelenburg position. The gallbladder was not immediately visible, but hidden by the omentum up under the liver edge. A 5-mm trocar was introduced under direct vision in the subxiphoid area, and a grasper through this used to gently sweep the omentum and bowel down away from the right upper quadrant, revealing the gallbladder at the liver edge. It was elevated briefly and noted to be distended but not tense. Gastric decompression was accomplished by anesthesia via an NGT, which was removed at case end. Two additional 5-mm ports were then placed in the right upper quadrant, through which 1 grasper was introduced and used to grasp the fundus of the gallbladder and elevate it over the liver edge. The second was used to grasp the infundibulum of the gallbladder and retract it laterally. A [place] dissector was used to begin dissecting the peritoneum away from the base of the gallbladder through some overlying fat to identify the cystic duct. There was a little bit of oozing of the surfaces of these overlying fatty tissues as the dissection progressed, and hook cautery was also used to help with hemostasis and continue dissection of the peritoneum off the medial and lateral sides of the gallbladder. The cystic duct was then visualized, once the tissues had been dissected from around it. It was identified in the critical view from both medial and lateral sides, as the only structure directly entering the gallbladder. It was clipped, 2 proximally and 1 distally, with the green size medium locking Weck clips and divided with Endo scissors. Additional dissection was then undertaken at the medial aspect of the base of the gallbladder, both to identify the bottom edge of the gallbladder itself and to look for the cystic artery. We were then able to identify a vascular structure tented anteriorly, going directly onto the surface of the gallbladder itself, which was determined to be the cystic artery. This was also clipped 2 proximally and 1 distally with medium-sized locking Weck clips, and divided with Endo scissors. The stump was noted to pulsate. Hook cautery was used to ensure hemostasis of a couple of smaller tiny vascular branches on the gallbladder surface as dissection continued of the peritoneal covering. Hook cautery was used to complete taking the gallbladder off of the liver surface, where it was noted to be partially intrahepatic. At one point, toward the base of the gallbladder, a hole was made in the gallbladder, with very small spillage of a little bit of bile and no stones. The grasper was repositioned to control this opening throughout the rest of the case. Again, hook cautery was used to complete dissection of the gallbladder off the liver bed. Once it had been completely , it was placed in an Endo Catch bag through the umbilical port site, as the camera was moved to the subxiphoid location, and retrieved out that site to be passed off as a pathology specimen. The Margie trocar and pneumoperitoneum were then reestablished, and the camera reinserted at the umbilical site to inspect the operative field. Graspers were used through the other 2 ports to elevate the liver edge. Although there was a small bit of clot adherent to the liver bed, there was no active bleeding noted. The suction experimental electronics developer was used to both rinse and suction fluid and blood from the operative field at several points throughout the original dissection, as well as the conclusion here. The liver was then returned to its normal position. Some of the omentum was tucked up under the liver edge after the patient was returned to neutral position, and the remainder of fluid and blood was suctioned from over the edge of the liver. The other ports were removed under direct vision, and the Margie trocar and camera were then removed from the abdominal cavity, which was desufflated of carbon dioxide. The stay suture at the umbilical site was tied to close the fascia there. Hemostasis was achieved in the port sites with electrocautery where needed. The skin was closed with 4-0 Vicryl subcuticular sutures, including a running at the umbilical site. Benzoin and Steri-Strips were applied to the incisions, which were covered with dressings of gauze and Tegaderm. Counts were correct at the end of the procedure. The patient was then awakened and extubated by Anesthesia, moved back to a stretcher and taken to the recovery room in stable condition, having tolerated the procedure well. Dr. Fischer was an essential assistant professor of music, helping with placing the 2 right upper quadrant ports, and retraction and manipulation of the gallbladder throughout the case, including facilitating retrieval of the gallbladder in the Endo Catch bag and ensuring hemostasis of the liver bed. Jose Alberto Horan M.D. [id number] MTDD
--- NOTE | 2017-04-04 10:59 | PN ---
Progress Note, Physician History of Present Illness: Ambulating, voiding, + BM, tolerating diet post lap cholecystectomy, pain adequately controlled with oral meds. - Current Medication List Current Medications: Active Medications Acetaminophen (Tylenol -) 650 mg PO Q6H PRN PRN Reason: PAIN Last Admin: 04/03/17 23:25 Dose: 650 mg Acetaminophen/Codeine Phosphate (Tylenol # 3 -) 1 tab PO Q4H PRN PRN Reason: SEVERE PAIN Last Admin: 04/04/17 10:43 Dose: 1 tab Docusate Sodium (Colace -) 100 mg PO BID [facility] Last Admin: 04/04/17 09:19 Dose: 100 mg Doxazosin Mesylate (Cardura -) 1 mg PO HS [facility] Last Admin: 04/03/17 21:36 Dose: 1 mg Metoprolol Succinate (Toprol Xl -) 25 mg PO DAILY [facility] Last Admin: 04/04/17 09:19 Dose: 25 mg Valsartan (Diovan -) 40 mg PO DAILY [facility] Last Admin: 04/04/17 09:19 Dose: 40 mg - Objective Vital Signs: Vital Signs Temperature 98.1 F 04/04/17 08:15 Pulse Rate 67 04/04/17 09:55 Respiratory Rate 18 04/04/17 08:15 Blood Pressure 146/85 04/04/17 08:15 O2 Sat by Pulse Oximetry (%) 97 04/04/17 09:55 Constitutional: Yes: No Distress, Calm Neck: Yes: Supple Cardiovascular: Yes: Regular Rate and Rhythm Respiratory: Yes: Regular, CTA Bilaterally Gastrointestinal: Yes: Normal Bowel Sounds, Soft Edema: No Labs: CBC, BMP 04/04/17 06:30 04/04/17 06:30 INR, PTT INR 1.12 (0.82-1.09) 04/04/17 06:30 Problem List - Problems (1) Anticoagulant long-term use Code(s): Z79.01 - GROUP HOME (CURRENT) USE OF ANTICOAGULANTS (2) Acute cholecystitis Code(s): K81.0 - ACUTE CHOLECYSTITIS (3) Atrial flutter Code(s): I48.92 - UNSPECIFIED ATRIAL FLUTTER Qualifiers: Atrial flutter type: atypical Qualified Code(s): I48.4 - Atypical atrial flutter (4) Dilated bile duct Code(s): K83.8 - OTHER SPECIFIED DISEASES OF BILIARY TRACT (5) HTN (hypertension) Code(s): I10 - ESSENTIAL (PRIMARY) HYPERTENSION Qualifiers: Hypertension type: essential hypertension Qualified Code(s): I10 - Essential (primary) hypertension (6) Cholelithiasis and acute cholecystitis without obstruction Code(s): K80.00 - CALCULUS OF GALLBLADDER W ACUTE CHOLECYST W/O OBSTRUCTION (7) S/P laparoscopic cholecystectomy Code(s): Z90.49 - ACQUIRED ABSENCE OF OTHER SPECIFIED PARTS OF DIGESTIVE TRACT (8) Status post endoscopic retrograde cholangiopancreatography Code(s): Z98.890 - OTHER SPECIFIED POSTPROCEDURAL STATES Assessment/Plan 1. POD#1 s/p laparoscopic cholecystectomy ruled out for choledocholithiasis via ERCP 2. Persistent atrial flutter [id number] on NOAC (Xarelto) - stopped 3. HTN/HCVD 4. ANDREA PLAN: 1. Complete empiric antibiotic course 2. Analgesia as needed, surgical f/u noted 3. Xarelto to be resumed Saturday 04/08 per surgical recommendations 4. Hold Diovan 40 qd pending renal fxn stabilization, continue Toprol 25 qd and Cardura 1 qhs 5. F/u with geochemical laboratory technician: Dr. Patricio Jewell at [facility]
--- NOTE | 2017-04-04 11:54 | PN ---
Progress Note, Physician History of Present Illness: stable no new issues patient stable post op - Current Medication List Current Medications: Active Medications Acetaminophen (Tylenol -) 650 mg PO Q6H PRN PRN Reason: PAIN Last Admin: 04/03/17 23:25 Dose: 650 mg Acetaminophen/Codeine Phosphate (Tylenol # 3 -) 1 tab PO Q4H PRN PRN Reason: SEVERE PAIN Last Admin: 04/04/17 10:43 Dose: 1 tab Docusate Sodium (Colace -) 100 mg PO BID [facility] Last Admin: 04/04/17 09:19 Dose: 100 mg Doxazosin Mesylate (Cardura -) 1 mg PO HS [facility] Last Admin: 04/03/17 21:36 Dose: 1 mg Metoprolol Succinate (Toprol Xl -) 25 mg PO DAILY [facility] Last Admin: 04/04/17 09:19 Dose: 25 mg - Objective Vital Signs: Vital Signs Temperature 98.1 F 04/04/17 08:15 Pulse Rate 67 04/04/17 09:55 Respiratory Rate 18 04/04/17 08:15 Blood Pressure 146/85 04/04/17 08:15 O2 Sat by Pulse Oximetry (%) 97 04/04/17 09:55 Constitutional: Yes: No Distress, Calm Cardiovascular: Yes: Regular Rate and Rhythm Respiratory: Yes: Regular, CTA Bilaterally Gastrointestinal: Yes: Normal Bowel Sounds, Soft Musculoskeletal: Yes: WNL Extremities: Yes: WNL Neurological: Yes: Alert, Oriented Psychiatric: Yes: Alert, Oriented Labs: CBC, BMP 04/04/17 06:30 04/04/17 06:30 INR, PTT INR 1.12 (0.82-1.09) 04/04/17 06:30 Assessment/Plan Problem List - Problem (1) Acute cholecystitis Code(s): K81.0 - ACUTE CHOLECYSTITIS (2) Abdominal pain Code(s): R10.9 - UNSPECIFIED ABDOMINAL PAIN Qualifiers: Abdominal location: right upper quadrant Qualified Code(s): R10.11 - Right upper quadrant pain (3) HTN (hypertension) Code(s): I10 - ESSENTIAL (PRIMARY) HYPERTENSION (4) Atrial flutter Code(s): I48.92 - UNSPECIFIED ATRIAL FLUTTER plan will stop all abx rest continue as per surgery/primary team
[2017-04-04 13:58] VITALS: BP 155/109; PULSE 66; TEMP 98.8
--- NOTE | 2017-04-04 15:14 | PN ---
Teaching Attending Note Name of Resident: Spencer Alfaro ATTENDING PHYSICIAN STATEMENT I saw and evaluated the patient. I reviewed the resident's note and discussed the case with the resident. I agree with the resident's findings and plan as documented. SUBJECTIVE: No fever or chills, no abd pain. OBJECTIVE: NAD Cv: RRR Lungs: CTAB Abd: soft, ND, TTP around surgical wounds, no rebound tenderness , has mild erythema around the umbilicus wound Ext: no edema ASSESSMENT AND PLAN: Patient is a 52 y/o man with a past medical history of Cholelithiasis, Degenerative Disc Disease presented with abd pain and was found to have acute cholecystitis 1- acute cholecystitis , s/p CCY POD 1 tolerated diet . LFTS reviewed. pain controlled hold xarelto till 04/08 per surgery No need for zosyn from surgical stand poijt . add augmentin BID x 5 days to cover posible cellulitis of abd wall around the umbilical surgical incision ( d/ w Dr. Paz, agrees ) 2- HTN: hold ARb for 3-4 days due to renal function . script for blood work given . oral hydration 3- A fib: hold xarelto till 04/08 cont BB dispo: dc home
--- NOTE | 2017-04-05 15:48 | PATH ---
Surgical Pathology Report Patient Name: CAROLEE FLORES Med. Rec. #: [id number] /Age/Gender: 1965 (Age: 52) / M Account: [id number] Location: [facility] MED/SURG Taken: 04/03/2017 Received: 04/04/2017 Reported: 04/05/2017 Physicians: Angel Leyva M.D. Specimen(s) Received GALLBLADDER Clinical History Acute and chronic cholecystitis Final Diagnosis GALLBLADDER, CHOLECYSTECTOMY: CHRONIC CHOLECYSTITIS, CHOLESTEROLOSIS, AND CHOLELITHIASIS. BENIGN REACTIVE PERICYSTIC LYMPH NODE PRESENT. Electronically Signed Alistair Soriano M.D. Gross Description Received in formalin, labeled "gallbladder," is a 8.5 x 2.7 x 2.7 cm. gallbladder with a 0.2 cm. in length portion of cystic duct attached. There is a 0.7 cm in greatest dimension periductal lymph node present. The outer surface is wilcox man and varies from smooth to shaggy. The lumen contains green, tenacious bile as well as abundant black, irregular choleliths averaging 0.4 cm in greatest dimension. The mucosa is green and velvety. The wall of the gallbladder is edematous and averages 0.4 cm. in thickness. [place] Hand sections are submitted in 2 cassettes as follows: 1-cystic duct margin and one whole bisected lymph node; 2-field representatives director gallbladder. 04/04/201704/04/2017
--- NOTE | 2017-04-05 21:18 | DS ---
Physical Exam: SUBJECTIVE: Patient seen and examined Pt has improved RUQ abdominal pain controlled with pain meds. He denies n/v/d/c. OBJECTIVE: Vital Signs Temperature 98.8 F 04/04/17 13:50 Pulse Rate 66 04/04/17 13:50 Respiratory Rate 16 04/04/17 13:50 Blood Pressure 155/109 04/04/17 13:50 O2 Sat by Pulse Oximetry (%) 97 04/04/17 09:55 PHYSICAL EXAM GENERAL: The patient is awake, alert, and fully oriented, in no acute distress. HEENT: NC, AT, no scleral icterus NECK: Trachea midline, full range of motion, supple. LUNGS: Breath sounds equal, clear to auscultation bilaterally, no wheezes, no crackles, no accessory muscle use. HEART: Regular rate and rhythm, S1, S2 without murmur, rub or gallop. ABDOMEN: non-distended, soft, moderately tender in RUQ and epigastric regions, normoactive BS EXTREMITIES: 2+ pulses, warm, well-perfused, no edema. NEUROLOGICAL: Cranial nerves II through XII grossly intact. Normal speech, gait not observed. LABS Laboratory Last Values WBC 8.7 K/mm3 (4.0-10.0) D 04/04/17 06:30 RBC 4.38 M/mm3 (4.00-5.60) 04/04/17 06:30 Hgb 13.7 GM/dL (11.7-16.9) 04/04/17 06:30 Hct 40.9 % (35.4-49) 04/04/17 06:30 MCV 93.4 fl (80-96) 04/04/17 06:30 MCH 31.2 pg (25.7-33.7) 04/04/17 06:30 MCHC 33.4 g/dl (32.0-35.9) 04/04/17 06:30 RDW 13.9 % (11.9-15.9) 04/04/17 06:30 Plt Count 184 K/MM3 (134-434) 04/04/17 06:30 MPV 7.5 fl (7.5-11.1) 04/04/17 06:30 Neutrophils % 77.0 % (42.8-82.8) 04/04/17 06:30 Lymphocytes % 12.7 % (8-40) D 04/04/17 06:30 Monocytes % 9.9 % (3.8-10.2) 04/04/17 06:30 Eosinophils % 0.1 % (0-4.5) 04/04/17 06:30 Basophils % 0.3 % (0-2.0) 04/04/17 06:30 PT with INR 12.70 SEC (9.98-11.88) H 04/04/17 06:30 INR 1.12 (0.82-1.09) 04/04/17 06:30 PTT (Actin FS) 32.1 SECONDS (26.9-34.4) 04/02/17 06:00 Sodium 137 mmol/L (136-145) 04/04/17 06:30 Potassium 4.1 mmol/L (3.5-5.1) 04/04/17 06:30 Chloride 103 mmol/L (98-107) 04/04/17 06:30 Carbon Dioxide 27 mmol/L (21-32) 04/04/17 06:30 Anion Gap 7 (8-16) L 04/04/17 06:30 BUN 15 mg/dL (7-18) 04/04/17 06:30 Creatinine 1.4 mg/dL (0.7-1.3) H 04/04/17 06:30 Creat Clearance w eGFR 53.01 (>60) 04/04/17 06:30 Random Glucose 104 mg/dL (74-106) D 04/04/17 06:30 Calcium 8.0 mg/dL (8.5-10.1) L 04/04/17 06:30 Phosphorus 2.5 mg/dL (2.5-4.9) 04/03/17 06:30 Magnesium 2.0 mg/dL (1.8-2.4) 04/03/17 06:30 Total Bilirubin 1.1 mg/dL (0.2-1.0) H 04/04/17 06:30 Direct Bilirubin 0.3 mg/dL (0.0-0.2) H 04/04/17 06:30 AST 54 U/L (15-37) H D 04/04/17 06:30 ALT 77 U/L (12-78) D 04/04/17 06:30 Alkaline Phosphatase 94 U/L (45-117) 04/04/17 06:30 Troponin I 0.05 ng/ml (0.00-0.05) 04/01/17 20:15 Total Protein 6.5 g/dl (6.4-8.2) 04/04/17 06:30 Albumin 3.6 g/dl (3.4-5.0) 04/04/17 06:30 Triglycerides Cancelled 04/03/17 06:30 Cholesterol Cancelled 04/03/17 06:30 Total LDL Cholesterol Cancelled 04/03/17 06:30 HDL Cholesterol Cancelled 04/03/17 06:30 Lipase 106 U/L (73-393) 04/03/17 06:30 TSH 2.53 uIU/ml (0.358-3.74) 04/02/17 06:00 Urine Color Ltyellow 04/02/17 01:30 Urine Appearance Clear 04/02/17 01:30 Urine pH 6.0 (5.0-8.0) 04/02/17 01:30 Ur Specific [place] 1.014 (1.001-1.035) 04/02/17 01:30 Urine Protein Negative (NEGATIVE) 04/02/17 01:30 Urine Glucose (UA) Negative (NEGATIVE) 04/02/17 01:30 Urine Ketones Negative (NEGATIVE) 04/02/17 01:30 Urine Blood Negative (NEGATIVE) 04/02/17 01:30 Urine Nitrite Negative (NEGATIVE) 04/02/17 01:30 Urine Bilirubin Negative (NEGATIVE) 04/02/17 01:30 Urine Urobilinogen Negative mg/dL (0.2-1.0) 04/02/17 01:30 Ur Leukocyte Esterase Negative (NEGATIVE) 04/02/17 01:30 Blood Type A POSITIVE 03/31/17 18:24 Antibody Screen Negative 03/31/17 18:12 Microbiology 04/01/17 07:50 Blood - Peripheral Venous Blood Culture - Preliminary NO GROWTH OBTAINED AFTER 96 HOURS, INCUBATION TO CONTINUE FOR 1 DAYS. 04/01/17 07:40 Blood - Peripheral Venous Blood Culture - Preliminary NO GROWTH OBTAINED AFTER 96 HOURS, INCUBATION TO CONTINUE FOR 1 DAYS. US Abdomen: cholelithiasis, gallbladder distention, gallbladder wall thickening , + mcnulty's sign, pericholecystic fluid, abnormal 8mm CBD dilation MRI Abdomen: questionable non-occlusive layering sludge in the distal CBC. stones not seen HOSPITAL COURSE: Date of Admission:04/01/17 Date of Discharge: 04/05/17 52M w/ hx of cholelithiasis, degenerative disc disease, and atrial flutter who presented with acute abdominal pain, admitted for acute cholecystitis. Pt initially treated with pain control, IV fluids, NPO, and abx. US showed evidence of acute cholecystitis, 8mm CBD dilation, and pt had T bili of 1.1, so MRCP was done. It did not show any clear evidence of stones. GI still believed there could be stone in the CBD, and so they performed an ERCP which did not reveal any stones. Pt then underwent a lap cristian the following day. Pt has normal vitals, an improving physical exam, is tolerating a regular diet, pain that is well controlled on po meds, and is ready for discharge home. Pt told to f/u with surgery and his PCP. He was given scripts for CBC and CMP, to be drawn in 4-5 days. Pt also given a 5 day course of augmentin for possible cellulitis around one of his abdominal incision sites and told to return to the ED if it does not resolve, or it worsens. -Spencer Alfaro MD PGY1 Minutes to complete discharge: 37 Discharge Summary Reason For Visit: ABDOMINAL PAIN, ACUTE CHOLECYSTITIS Condition: Improved - Instructions Diet, Activity, Other Instructions: Postoperative instructions: You had a laparoscopic cholecystectomy on 04/03/[address] Jose Alberto Horan of [facility]. Activity: Resume your usual activities gradually, but no heavy exertion or lifting more than 10-15 pounds for 1 month. Remove dressings 48 hours after surgery; sticky tapes underneath will fall off by themselves. You may shower daily starting then, just pat the incision areas dry. No bath or swimming until skin incisions have healed. Eat lightly at first, but advance to your usual diet as tolerated. Pain: For pain, you may use Tylenol (acetaminophen) 1-2 pills every 6 hours as needed. Use the Tylenol #3 (with codeine) instead of plain Tylenol as needed and switch back when your pain starts decreasing. Do not take more than 4000mg of acetaminophen in a day. Take medications as prescribed or indicated on the labeling. Stool softener is recommended to be used while taking the Tylenol #3 and for a few days after. If stools get too loose, reduce the dose or stop taking. Do NOT resume taking your Xarelto until Saturday04/08/17. Do not take aspirin or ibuprofen for pain while using Xarelto. Follow-ups: 1. Call Dr. Horan's office at [phone] to make your postop appointment ( Saturday ~2 weeks after surgery). Clinic is held in the Diagnostic Center on the first floor of [facility]. Call the office if you have: * increasing pain not responsive to pain medication * fever of 101F or higher * vomiting * unusual or increasing bleeding or drainage from wounds * increasing redness or swelling at wound sites * inability to urinate 2. Also, see your primary medical doctor within 1-2 weeks. If you don't have one , we have referred you to Dr. Parson's office to see dr. William -We have given you scripts for labwork including a CBC and CMP. Please get them done in 4-5 days. Medications: 1. Start taking augmentin 500mg twice a day for 5 days to treat the possible infection around your incision site. if redness goes beyond the line we franc[place] today, please come back to ER 2. Resume all your previous medications Referrals: Jakob Parson MD [Staff Physician] - (Dr. william ) Jose Alberto Horan MD [Staff Physician] - 2 Weeks Disposition: HOME - Home Medications Comprehensive Discharge Medication List: Ambulatory Orders Doxazosin Mesylate [Cardura] 1 mg PO HS 03/31/17 Metoprolol Succinate [Toprol Xl] 25 mg PO DAILY 03/31/17 Valsartan 40 mg PO DAILY 03/31/17 Acetaminophen W/ Codeine #3 [Tylenol # 3 -] 1 tab PO Q6H PRN #12 tablet MDD 8 Acetaminophen [Tylenol .Regular Strength -] 650 mg PO Q6H PRN tablet 04/04/17 Amoxicillin/Potassium Clav [Augmentin 500-125 Tablet] 1 each PO Q12H #10 tablet 04/04/17 Docusate Sodium [Colace -] 100 mg PO BID capsule 04/04/17 Miscellaneous Drug Not In Syst [Outpatient Lab Test] 1 each ASDIR #1 misc 02/09 This patient is new to me today: No Emergency Visit: Yes ED Registration Date: 04/01/17 Care time: The patient presented to the Emergency Department on the above date and was hospitalized for further evaluation of their emergent condition. Critical Care patient: No - Discharge Referral Referred to [facility] No
== END 2017-04-04 14:24 | disposition home or self-care (01) | DRG 418 ==
LOC: FER 17:43 → J8W 23:00 → OBSVTOIN 04-01 14:48
PROVIDERS: ADMIT Internal Medicine; ATTEND Internal Medicine
PROC: 0FJB8ZZ Inspection of Hepatobiliary Duct, Via Natural or Artificial Opening Endoscopic (ICD-10-PCS; 2017-04-02)
PROC: BF10YZZ Fluoroscopy of Bile Ducts using Other Contrast (ICD-10-PCS; 2017-04-02)
PROC: 0FT44ZZ Resection of Gallbladder, Percutaneous Endoscopic Approach (ICD-10-PCS; principal; 2017-04-03 14:00)
DX: K80.12 Calculus of gallbladder with acute and chronic cholecystitis without obstruction (principal); I48.92 Unspecified atrial flutter; N17.9 Acute kidney failure, unspecified; I48.91 Unspecified atrial fibrillation; I11.9 Hypertensive heart disease without heart failure; N40.0 Benign prostatic hyperplasia without lower urinary tract symptoms; F17.210 Nicotine dependence, cigarettes, uncomplicated
CPT/HCPCS: 36415; 71045-TC; 74181-TC; 76000-TC; 76705-TC; 80048; 80053; 81003; 82248; 83690; 83735; 84100; 84443; 84484; 85025; 85610; 85730; 86850; 86900; 86901; 87040; 88304-TC; 90732; 93005; 94010; 94760; 99283-25; G0009; G0378

== ENCOUNTER 2018-10-03 07:17 | Inpatient (IN) | payer BC, OTHER ==
--- NOTE | 2018-10-03 07:49 | PDOC ---
History of Present Illness - General Chief Complaint: Chest Pain Stated Complaint: S.O.B. Time Seen by Provider: 10/03/18 07:40 - History of Present Illness Initial Comments: 10/03/18 08:12 José Wolf is a 53yM with PMHx of a fib not anticoagulated, HTN, HLD, current smoker presenting with chest discomfort. At 237a, woke up with substernal chest discomfort. Associated nausea, SOB, left finger numbness and tingling. generalized weakness. In the ED, started having bilateral frontal headache. Smoked marijuana yesterday. Endorses numerous life stressors - laid off work 2 months ago, lost health insurance, only taking pravastatin daily. Denies fever, vomiting, AB pain, urinary/bowel changes. [facility] Dr. Patricio Jewell, [facility] last filled May 2018: xarelto 20 qD, valsaran 80 qD, pravastatin 20 qD Past History - Past Medical History Allergies/Adverse Reactions: Allergies Allergy/AdvReac Type Severity Reaction Status Date / Time No Known Allergies Allergy Verified 10/03/18 07:31 Home Medications: Ambulatory Orders Metoprolol Succinate [Toprol Xl] 25 mg PO DAILY 10/03/18 Pravastatin Sodium 20 mg PO HS 10/03/18 Rivaroxaban [Xarelto -] 20 mg PO DAILY 10/03/18 Valsartan 80 mg PO DAILY 10/03/18 Cardiac Disorders: Yes (afib, cardioversion) COPD: No Diabetes: No HTN: Yes Hypercholesterolemia: Yes - Surgical History Abdominal Surgery: Yes (hernia repair, gallbladder removal) - Suicide/Smoking/Psychosocial Hx Smoking History: Current every day smoker Have you smoked in the past 12 months: Yes Number of Cigarettes Smoked Daily: 6 Information on smoking cessation initiated: No Hx Alcohol Use: Yes (daily) Drug/Substance Use Hx: Yes (smoked marijuana last night) Substance Use Type: Alcohol (2 beers/day) Review of Systems - Review of Systems Constitutional: Yes: Malaise, Weakness (generalized). No: Chills, Fever HEENTM: No: Eye Pain, Blurred Vision, Recent change in vision, Double Vision, Nose Pain, Throat Pain Respiratory: Yes: Shortness of Breath. No: Cough, Stridor, Wheezing, Productive cough, Hemoptysis Cardiac (ROS): Yes: Chest Tightness. No: Chest Pain, Edema, Lightheadedness, Palpitations, Syncope ABD/GI: No: Abdominal Distended, Constipated, Diarrhea, Nausea, Vomiting : No: Burning, Dysuria, Discharge Musculoskeletal: No: Back Pain, Joint Pain, Joint Swelling, Muscle Pain Integumentary: No: Bruising, Dryness, Erythema, Flushing Neurological: Yes: Headache (bilateral frontal), Numbness (left finger tips), Paresthesia (left finger tips). No: Seizure, Tremors Psychiatric: Yes: Anxiety, Stressors (lost job). No: Depression Endocrine: No: Excessive Sweating, Flushing, Intolerance to Cold, Intolerance to Heat *Physical Exam - Vital Signs Last Vital Signs Temp Pulse Resp BP Pulse Ox 98.1 F 78 20 196/137 H 98 10/03/18 11:27 10/03/18 11:28 10/03/18 11:28 10/03/18 11:28 10/03/18 09:21 - Physical Exam General Appearance: Yes: Nourished, Mild Distress, Obese HEENT: positive: EOMI, KD, Normal Voice Respiratory/Chest: positive: Lungs Clear, Normal Breath Sounds. negative: Chest Tender, Respiratory Distress, Accessory Muscle Use, Labored Respiration Cardiovascular: positive: Regular Rhythm, Regular Rate, S1, S2. negative: Edema , Murmur Gastrointestinal/Abdominal: positive: Normal Bowel Sounds, Flat, Soft. 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 negative: Normal Mood/Affect (anxious), Facial Droop, Numbness, Sensory Deficit, Confused , Disoriented Heart Score/ECG Review - History History: Moderately suspicious - Electrocardiogram EKG: Normal (a flutter, RBBB) - Age Age: 45-65 - Risk Factors Risk Factors Heart Score: Yes Hx Hypercholesterolemia, Yes Hx Hypertension, No Hx Diabetes, Yes Smoking History Based on the list above the patient has:: >/=3 risk factors or Hx atherosclerotic disease - Troponin Troponin: 1-3x normal limit - Score Heart Score - Total: 5 ED Treatment Course - LABORATORY CBC & Chemistry Diagram: 10/03/18 08:00 10/03/18 08:00 - ADDITIONAL ORDERS Additional order review: Laboratory Results 10/03/18 10/03/18 10/03/18 08:00 08:00 08:00 PT with INR 11.50 INR 0.97 PTT (Actin FS) 30.2 D-Dimer 822 H Sodium 142 Potassium 3.8 Chloride 109 H Carbon Dioxide 26 Anion Gap 7 L BUN 16.4 Creatinine 1.2 Est GFR (CKD-EPI)AfAm 78.98 Est GFR (CKD-EPI)NonAf 68.14 Random Glucose 119 H Calcium 8.6 Magnesium 2.1 Total Bilirubin 0.5 AST 30 ALT 51 Alkaline Phosphatase 87 Troponin I 0.06 H B-Natriuretic Peptide 1615.6 H Total Protein 6.8 Albumin 3.5 10/03/18 08:00 RBC 4.58 MCV 93.6 MCHC 34.3 RDW 13.1 MPV 8.1 Neutrophils % 82.4 Lymphocytes % 7.7 L Monocytes % 7.8 Eosinophils % 0.7 Basophils % 1.4 - RADIOLOGY Radiology Studies Ordered: Category Date Time Status CHEST CTA [CT] Stat CT Scan 10/03/18 10:[address] WITHOUT CONTRAST [CT] Stat CT Scan 10/03/18 09:21 Completed - Medications Given in the ED: ED Medications Discontinued Medications Generic Name Dose Route Start Last Admin Trade Name Jailene PRN Reason Stop Dose Admin Acetaminophen 975 mg 10/03/18 08:32 10/03/18 09:26 Tylenol - PO 10/03/18 08:33 Not Given ONCE ONE Acetaminophen 650 mg 10/03/18 09:22 10/03/18 09:29 Tylenol - PO 10/03/18 09:23 650 mg ONCE ONE Administration Aspirin 325 mg 10/03/18 12:34 10/03/18 12:53 Asa - PO 10/03/18 12:35 325 mg ONCE ONE Administration Furosemide 20 mg 10/03/18 14:34 10/03/18 14:42 Lasix Injection - IVPUSH 10/03/18 14:35 20 mg ONCE ONE Administration Valsartan 80 mg 10/03/18 09:23 10/03/18 12:53 Diovan - PO 10/03/18 09:24 80 mg ONCE ONE Administration Medical Decision Making - Critical Care Time Total Critical Care Time (minutes): 30 Critical Care Statement: The care of this patient involved high complexity decision making to prevent further life threatening deterioration of the patient 's condition and/or to evaluate & treat vital organ system(s) failure or risk of failure. - Medical Decision Making 10/03/18 08:33 ordered CBC, CMP, trop, CXR, EKG, PT/PTT, -EKG shows atrial flutter w 4:1 conduction, and RBBB, HR 69 Given tylenol for headache, pain reduced from 8 to 6 repeat BP 190/120 added d-dimer to rule out PE CBC normal Ordered head CT rule out bleed started home valsartan, given aspirin -trop 0.06, BNP 1600, d-dimer 800 Bedside echo: LVH, mild reduced EF, mild LA dilation, bilateral B-lines Head CT negative Chest CT showed krysten small pleural effusions, groundglass opacities, no PE José Wolf is a 53yM with PMHx of a fib not anticoagulated, HTN, HLD, current smoker presenting with chest discomfort. EKG showed a flutter w 4:1 conduciton, RBBB, HR 69. Neuro intact. Given tylenol, valsartan, aspirin. Trop 0.06, BNP 1600, chest CT showed krysten pleural effusions, no PE. Bedside echo showed LVH, mild reduced EF, mild LA dilation, bilateral B-lines lungs. Head CT negative for bleed. Admitted to [facility] inpatient service for acute heart failure (HEART score 5), a flutter anticoagulation, hypertensive urgency management *DC/Admit/Observation/Transfer Diagnosis at time of Disposition: Hypertensive urgency - Discharge Dispostion Condition at time of disposition: Guarded Decision to Admit order: Yes - Referrals - Patient Instructions - Post Discharge Activity
[2018-10-03] MEDS ORDERED: ACETAMINOPHEN 500 MG TABLET (FP) PO ONE (08:32)
[2018-10-03 08:52] LABS: BASO % 1.4 % (0-2.0); EOS % 0.7 % (0-4.5); HEMATOCRIT 42.9 % (35.4-49); HEMOGLOBIN 14.7 GM/dL (11.7-16.9); LYMPH % 7.7 % (8-40); MCH 32.1 pg (25.7-33.7); MCHC 34.3 g/dl (32.0-35.9); MEAN CELL VOLUME 93.6 fl (80-96); MEAN PLT VOLUME 8.1 fl (7.5-11.1); MONO % 7.8 % (3.8-10.2); NEUT % 82.4 % (42.8-82.8); PLATELET COUNT 226 K/MM3 (134-434); RBC 4.58 M/mm3 (4.00-5.60); RDW 13.1 % (11.9-15.9); WHITE BLOOD COUNT 8.9 K/mm3 (4.0-10.0)
[2018-10-03 09:18] LABS: INR 0.97 (0.83-1.09); PROTHROMBIN TIME (PATIENT) 11.5 SEC (9.7-13.0)
[2018-10-03 09:19] LABS: ALBUMIN 3.5 g/dl (3.4-5.0); BILIRUBIN,TOTAL 0.5 mg/dL (0.2-1); BLOOD UREA NITROGEN 16.4 mg/dL (7-18); CALCIUM 8.6 mg/dL (8.5-10.1); CREATININE 1.2 mg/dL (0.55-1.3); MAGNESIUM 2.1 mg/dL (1.8-2.4); N-TERMINAL BNP 1615.6 pg/ml (5-125); POTASSIUM 3.8 mmol/L (3.5-5.1); TOT PROT 6.8 g/dl (6.4-8.2)
[2018-10-03 09:20] LABS: ACTIVATED PTT 30.2 SECONDS (25.2-36.5)
[2018-10-03] MEDS ORDERED: ACETAMINOPHEN 325 MG TABLET (FP) PO ONE (09:22)
[2018-10-03] MEDS ORDERED: VALSARTAN 80 MG TABLET (UD) PO ONE (09:23)
[2018-10-03] MEDS ORDERED: ACETAMINOPHEN 325 MG TABLET (FP) ONE (09:26)
--- NOTE | 2018-10-03 09:34 | PDOC ---
Attending Attestation - Resident Resident Name: David Shoemaker - ED Attending Attestation I have performed the following: I have examined & evaluated the patient, The case was reviewed & discussed with the resident, I agree w/resident's findings & plan, Exceptions are as noted - HPI HPI: 10/03/18 09:35 53yo M hx HTN, AF, and HL presents to the ED with CP since 2:30AM Pt reports the chest pain is pleuritic, located under his ribs b/l He has never had similar pain before, believes he has pain 2/2 missing his medications for the last 1.5 months Pt states he lost his job and insurance and thus could not get his medications He reports associated SOB and feeling of nausea Began to develop a gradual onset global headache 3 days ago DEnies visual sxs, N/V/D, F/C, abd pain, urinary sxs, LE edema. No recent travel or immobility Pt smoked marijuana last night, is also an active smoker Denies other drug use or etoh - Physicial Exam PE: 10/03/18 09:34 GENERAL: Awake, alert, and fully oriented, in no acute distress HEAD: No signs of trauma EYES: PERRLA, EOMI, sclera anicteric, conjunctiva clear ENT: Auricles normal inspection, hearing grossly normal, nares patent, oropharynx clear without exudates. Moist mucosa NECK: Normal ROM, supple, no lymphadenopathy, JVD, or masses LUNGS: Breath sounds equal, clear to auscultation bilaterally. No wheezes, and no crackles HEART: Regular rate and rhythm, normal S1 and S2, no murmurs, rubs or gallops ABDOMEN: Soft, nontender, normoactive bowel sounds. No guarding, no rebound. No masses EXTREMITIES: Normal range of motion, no edema. No clubbing or cyanosis. No cords, erythema, or tenderness NEUROLOGICAL: Normal speech, cranial nerves intact, negative pronator drift, 5/ 5 strength in all 4 extremities, normal sensation to light touch in all 4 extremities, normal cerebellar exam, normal gait, normal reflexes and tone SKIN: Warm, Dry, normal turgor, no rashes or lesions noted. - Medical Decision Making 10/03/18 09:28 53yo M hx AF, HTN, HL presents to the ED with CP since 2:30AM. Pt has been off his medications for 1.5 months since he lost his insurance. Pt also c/o headache. Vitals with tachycardia and elevated BP Exam wnl - neuro intact EKG with Aflutter with 4:1 conduction, RBBB, no KD DDx includes ACS vs PE vs hypertensive emergency Pt's pharmacy was called, pt was previously on valsartan 80mg, xarelto, and pravastatin Will obtain CTH to r/o CVA or ICH given pt's headache before treating BP Anticipate admission. Heart Score/ECG Review #1 10/03/18 09:41 Atrial flutter with 4-1 conduction, rate 69. Normal axis. Right bundle branch block. No ST elevations.
[2018-10-03] MEDS ORDERED: ASPIRIN 325 MG TABLET PO ONE (12:34)
[2018-10-03] MEDS ORDERED: ASPIRIN 325 MG TABLET ONE (12:52)
[2018-10-03] MEDS ORDERED: VALSARTAN 80 MG TABLET (UD) ONE (12:52)
--- NOTE | 2018-10-03 13:27 | EKG ---
Test Reason : Blood Pressure : / mmHG Vent. Rate : 069 BPM Atrial Rate : 276 BPM P-R Int : 000 ms QRS Dur : 172 ms QT Int : 530 ms P-R-T Axes : 084 065 044 degrees QTc Int : 567 ms POOR DATA QUALITY, INTERPRETATION MAY BE ADVERSELY AFFECTED ATRIAL FLUTTER WITH 4:1 A-V CONDUCTION RIGHT BUNDLE BRANCH BLOCK T WAVE ABNORMALITY, CONSIDER LATERAL ISCHEMIA ABNORMAL ECG NO PREVIOUS ECGS AVAILABLE Confirmed by MARQUIS LAW MD ([id number]) on 10/03/2018 1:27:40 PM Referred By: Confirmed By:MARQUIS LAW MD
[2018-10-03] MEDS ORDERED: FUROSEMIDE 40 MG/4 ML INJECTABLE VIAL IVPUSH ONE (14:34)
[2018-10-03] MEDS ORDERED: NICARDIPINE 25 MG in DEXTROSE 5%-WATER - 240 ML IVPB ONE (14:45)
--- NOTE | 2018-10-03 15:47 | HP ---
CHIEF COMPLAINT:chest discomfort, SOB PCP: Sales Account Executive: Dr. Patricio Jewell HISTORY OF PRESENT ILLNESS: Patient is a 53 year old male with past medical history of A.fib, HTN, HLD, presented to the ED due to worsening SOB and chest discomfort that started at 2 am this morning. Patient reported he was woken up from sleep, feeling short of breath and having midsternal chest discomfort. He reported having similar episodes in the past which would last a few seconds, but last night SOB was persistent, with patient describing it as "I can't catch my breath". This morning, because patient just have difficulty breathing and having persistent chest discomfort, he came to the ED. Patient denies fever, chills, nausea, vomiting, abdominal pain, diarrhea, urinary symptoms. At the ED, patient was reporting headache. BP was noted to be elevated 215/135. Head CT was negative for any acute pathology. Trop was noted to be elevated at 0.06, D-dimer 822, BNP 1615. ER course was notable for: (1)Head CT: no acute intracranial pathology (2)Chest CTA: no evidence of acute pulmonary embolism, patchy ground glass opacities, bilateral small pleural effusions (3)CXR: infiltrative changes Recent Travel:denies PAST MEDICAL HISTORY: Atrial fibrillation HTN HLD PAST SURGICAL HISTORY: Right inguinal hernia repair Social History: Smoking:previously smokes 2 ppd for 15 years, then cut down to 1 pack per week Alcohol:2 glasses of wine per day Drugs: denies Family History: Allergies No Known Allergies Allergy (Verified 10/03/18 07:31) HOME MEDICATIONS: Home Medications Medication Instructions Recorded Metoprolol Succinate [Toprol Xl] 25 mg PO DAILY 10/03/18 Pravastatin Sodium 20 mg PO HS 10/03/18 Rivaroxaban [Xarelto -] 20 mg PO DAILY 10/03/18 Valsartan 80 mg PO DAILY 10/03/18 REVIEW OF SYSTEMS CONSTITUTIONAL: Absent: fever, chills, diaphoresis, generalized weakness, malaise, loss of appetite, weight change HEENT: Absent: rhinorrhea, nasal congestion, throat pain, throat swelling, difficulty swallowing, mouth swelling, ear pain, eye pain, visual changes CARDIOVASCULAR: Absent: chest pain, syncope, palpitations, irregular heart rate, lightheadedness , peripheral edema RESPIRATORY: shortness of breath Absent: cough, dyspnea with exertion, orthopnea, wheezing, stridor, hemoptysis GASTROINTESTINAL: Absent: abdominal pain, abdominal distension, nausea, vomiting, diarrhea, constipation, melena, hematochezia GENITOURINARY: Absent: dysuria, frequency, urgency, hesitancy, hematuria, flank pain, genital pain MUSCULOSKELETAL: Absent: myalgia, arthralgia, joint swelling, back pain, neck pain SKIN: Absent: rash, itching, pallor HEMATOLOGIC/IMMUNOLOGIC: Absent: easy bleeding, easy bruising, lymphadenopathy, frequent infections ENDOCRINE: Absent: unexplained weight gain, unexplained weight loss, heat intolerance, cold intolerance NEUROLOGIC: Absent: headache, focal weakness or paresthesias, dizziness, unsteady gait, seizure, mental status changes, bladder or bowel incontinence PSYCHIATRIC: Absent: anxiety, depression, suicidal or homicidal ideation, hallucinations. PHYSICAL EXAMINATION Vital Signs - 24 hr 10/03/18 10/03/18 10/03/18 07:23 07:52 09:21 Temperature 98.3 F Pulse Rate 101 H Pulse Rate [ 79 Left Radial] Respiratory 16 20 Rate Blood Pressure 181/118 H Blood Pressure [Left Arm] Blood Pressure 179/135 H [Right Arm] O2 Sat by Pulse 98 98 98 Oximetry (%) 10/03/18 10/03/18 10/03/18 11:27 11:28 15:34 Temperature 98.1 F 97.7 F Pulse Rate Pulse Rate [ 78 78 69 Left Radial] Respiratory 20 20 15 Rate Blood Pressure Blood Pressure 196/137 H 209/137 H [Left Arm] Blood Pressure 215/135 H [Right Arm] O2 Sat by Pulse 100 Oximetry (%) GENERAL: Awake, alert, and fully oriented, in no acute distress. HEAD: Normal with no signs of trauma. EYES: PERRLA ,EOMI , sclera anicteric, conjunctiva clear. EARS, NOSE, THROAT: oropharynx clear without exudates. Moist mucous membranes. NECK: Normal range of motion, supple. LUNGS: +Fine Crackles bilateral bases HEART: Regular rate and rhythm, normal S1 and S2 without murmur, rub or gallop. ABDOMEN: Soft, nontender, not distended, normoactive bowel sounds. MUSCULOSKELETAL: Normal range of motion at all joints. No bony deformities or tenderness. UPPER EXTREMITIES: 2+ pulses, warm, well-perfused. No peripheral edema. LOWER EXTREMITIES: 2+ pulses, warm, well-perfused. No peripheral edema. NEUROLOGICAL: Cranial nerves II-XII intact. Normal speech. Normal gait. PSYCHIATRIC: Cooperative. Good eye contact. Appropriate mood and affect. SKIN: Warm, dry, normal turgor, no rashes or lesions noted. Laboratory Results - last 24 hr 10/03/18 10/03/18 10/03/18 08:00 08:00 08:00 WBC 8.9 RBC 4.58 Hgb 14.7 Hct 42.9 MCV 93.6 MCH 32.1 MCHC 34.3 RDW 13.1 Plt Count 226 MPV 8.1 Absolute Neuts (auto) 7.3 Neutrophils % 82.4 Lymphocytes % 7.7 L Monocytes % 7.8 Eosinophils % 0.7 Basophils % 1.4 Nucleated RBC % 0 PT with INR 11.50 INR 0.97 PTT (Actin FS) 30.2 D-Dimer Sodium 142 Potassium 3.8 Chloride 109 H Carbon Dioxide 26 Anion Gap 7 L BUN 16.4 Creatinine 1.2 Est GFR (CKD-EPI)AfAm 78.98 Est GFR (CKD-EPI)NonAf 68.14 Random Glucose 119 H Calcium 8.6 Magnesium 2.1 Total Bilirubin 0.5 AST 30 ALT 51 Alkaline Phosphatase 87 Troponin I 0.06 H B-Natriuretic Peptide 1615.6 H Total Protein 6.8 Albumin 3.5 10/03/18 08:00 WBC RBC Hgb Hct MCV MCH MCHC RDW Plt Count MPV Absolute Neuts (auto) Neutrophils % Lymphocytes % Monocytes % Eosinophils % Basophils % Nucleated RBC % PT with INR INR PTT (Actin FS) D-Dimer 822 H Sodium Potassium Chloride Carbon Dioxide Anion Gap BUN Creatinine Est GFR (CKD-EPI)AfAm Est GFR (CKD-EPI)NonAf Random Glucose Calcium Magnesium Total Bilirubin AST ALT Alkaline Phosphatase Troponin I B-Natriuretic Peptide Total Protein Albumin ASSESSMENT/PLAN: Patient is a 53 year old male with past medical history of A.fib, HTN, HLD, presented to the ED due to worsening SOB and chest discomfort that started at 2 am this morning #Hypertensive emergency -Trend troponins -Nicardipine drip started. -TSH ordered -Echo done -Cardiology (Dr. Daniels) consulted. REcommendations appreciated. -Wean cardene gtt -Resume Metoprolol XL 25mg daily and Valsartan 80mg daily #CHF -Echo: Moderate inferoapical hypokinesis. The remaining gonzales appear globally mildly hypokinetic. LV systolic function is borderline. EF 50% -Lasix 40mg IV daily -Daily weights -Intake and output -Monitor electrolytes and renal function #Atrial fibrillation -rate controlled -continue Xarelto 20mg daily #Hyperlipidemia -Continue statin #FEN -Not on any standing fluids -Electrolytes wnl, routine bmp monitoring -Sodium restricted diet #Prophylaxis -Xarelto 20mg daily #Disposition -full code -admit to tele Visit type - Emergency Visit Emergency Visit: Yes ED Registration Date: 10/03/18 Care time: The patient presented to the Emergency Department on the above date and was hospitalized for further evaluation of their emergent condition. - New Patient This patient is new to me today: Yes Date on this admission: 10/04/18 - Critical Care Critical Care patient: No ATTENDING PHYSICIAN STATEMENT I saw and evaluated the patient. I reviewed the resident's note and discussed the case with the resident. I agree with the resident's findings and plan as documented. SUBJECTIVE: OBJECTIVE: ASSESSMENT AND PLAN:
--- NOTE | 2018-10-03 15:54 | CON.CARD ---
Consult Consult Specialty:: Cardiology Referred by:: Hospitalist Medicine Reason for Consultation:: Hypertensive urgency, afib - History of Present Illness Chief Complaint: Chest pain, dyspnea History of Present Illness: José Wolf is a 53yM with aflutter h/o RFA 04/17/[address] José Lauren [facility] , HTN, HLD, current smoker, fam h/o CAD presenting with chest discomfort, dyspnea on exertion, orthopnea w/o palpitations, near or true syncope, PND or LE edema, bilateral frontal headache. Smoked marijuana yesterday. Endorses numerous life stressors - laid off work 2 months ago, lost health insurance, only taking pravastatin daily and ran out of antihypertensive agents a month ago , adds salt to diet. BP was noted to be elevated 215/135. Head CT was negative for any acute pathology. Trop was noted to be elevated at 0.06, D-dimer 822, BNP 1615, started on Cardene gtt. 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 Patricio Jewell, [facility] pharmacy [facility] last filled May 2018: xarelto 20 qD, valsaran 80 qD, pravastatin 20 qD - History Source History Provided By: Patient Limitations to Obtaining History: No Limitations - Past Medical History Cardio/Vascular: Yes: CHF, Other (Aflutter) - Alcohol/Substance Use Hx Alcohol Use: Yes (daily) - Smoking History Smoking history: Current every day smoker Have you smoked in the past 12 months: Yes Aproximately how many cigarettes per day: 6 Home Medications - Allergies Allergies/Adverse Reactions: Allergies Allergy/AdvReac Type Severity Reaction Status Date / Time No Known Allergies Allergy Verified 10/03/18 07:31 - Home Medications Home Medications: Ambulatory Orders Metoprolol Succinate [Toprol Xl] 25 mg PO DAILY 10/03/18 Pravastatin Sodium 20 mg PO HS 10/03/18 Rivaroxaban [Xarelto -] 20 mg PO DAILY 10/03/18 Valsartan 80 mg PO DAILY 10/03/18 Review of Systems - Review of Systems Respiratory: reports: Orthopnea, SOB on Exertion Vital Signs: Vital Signs Temperature 97.7 F 10/03/18 15:34 Pulse Rate 78 10/03/18 15:50 Respiratory Rate 15 10/03/18 15:34 Blood Pressure 184/129 H 10/03/18 15:50 O2 Sat by Pulse Oximetry (%) 100 10/03/18 15:34 Constitutional: Yes: No Distress, Calm Neck: Yes: Supple Respiratory: Yes: Regular, Diminished, On Nasal O2 Gastrointestinal: Yes: Normal Bowel Sounds, Soft Cardiovascular: Yes: Tachycardia JVD: No Carotid Bruit: No Heart Sounds: Yes: S1, S2 Murmur: Yes: Systolic Murmur, Grade 1 Edema: No - Other Data Labs, Other Data: CBC, BMP 10/03/18 08:00 10/03/18 08:00 INR, PTT INR 0.97 (0.83-1.09) 10/03/18 08:00 Troponin, BNP 10/03/18 08:00 Troponin I 0.06 H B-Natriuretic Peptide 1615.6 H Troponin, BNP 10/03/18 08:00 Troponin I 0.06 H B-Natriuretic Peptide 1615.6 H Aflutter @ 67 4:1 AVB RBBB c/w previous 06/13/2017 back in aflutter Ejection Fraction %: LVEF < 40 % Imaging - Results Chest X-ray: Report Reviewed (Right sided diego B lines) Cat Scan: Report Reviewed (10/03/2018 Chest CTA: No PE, patchy groundglass opacities RUL and RML, some dependent ATX, bilateral small pleural effusions) EKG: Report Reviewed (Aflutter @ 69 4:1 AV block) Problem List - Problems (1) Acute systolic (congestive) heart failure Code(s): I50.21 - ACUTE SYSTOLIC (CONGESTIVE) HEART FAILURE (2) Hyperlipidemia Code(s): E78.5 - HYPERLIPIDEMIA, UNSPECIFIED Qualifiers: Hyperlipidemia type: pure hypercholesterolemia Qualified Code(s): E78.00 - Pure hypercholesterolemia, unspecified; E78.0 - Pure hypercholesterolemia (3) Hypertensive encephalopathy Code(s): I67.4 - HYPERTENSIVE ENCEPHALOPATHY (4) Atrial flutter Code(s): I48.92 - UNSPECIFIED ATRIAL FLUTTER Qualifiers: Atrial flutter type: typical Qualified Code(s): I48.3 - Typical atrial flutter (5) S/P radiofrequency ablation operation for arrhythmia Code(s): Z98.890 - OTHER SPECIFIED POSTPROCEDURAL STATES; Z86.79 - PERSONAL HISTORY OF OTHER DISEASES OF THE CIRCULATORY SYSTEM (6) Hypertensive urgency Code(s): I16.0 - HYPERTENSIVE URGENCY Assessment/Plan 10/03/2018 Echo: Mod inferoapical HK, borderline decreased LVEF 50%m mod LAE, mild MR, TR, AR 03/14/2017 Echo: Rhythm is aflutter, mild dilated LV with mild-mod cLVH mod decreased LVEF 35-40% severe inferoapical HK, mod LAE, normal RV size with mild decreased RV fxn, tr TR RVSP 40-45 mmHg 03/15/2017 Lexiscan Myoview: No ischemia or scra, dilated LV with mod-severe decreased LV fxn LVEF 36% 1. Chest pain and orthopnea referable to acute diastolic heart failure 2. Rate-controlled persistent aflutter s/p RF ablation by José Quijano at [facility] 3. Hypertensive urgency and encephelopathy 4. Hyperlipidemia 5. Current smoker P:1. IV diuresis with monitor diuretic response, renal fxn and electrolytes 2. Wean Cardene gtt, resume Toprol XL 25, Diovan 80 qd, Xarelto 20 qd with uptitration as hemodynamics tolerate 3. Emphasized importance of medication and diet compliance, NSAID avoidance, abstinence from smoking 4. Patient to f/u with Dr. Patricio Jewell as outpatient, DCCV vs repeat RF ablation once compliance and medical insurance re-established 5. Thank you for consultative opportunity
--- NOTE | 2018-10-03 15:56 | ECHO ---
Name: CAROLEE FLORES Exam:Adult Echocardiogram Study Date: 10/03/2018 02:51 PM Age: 53 yrs Height: 68 in Weight: 184 lb BSA: 2.0 m2 MMode/2D Measurements & Calculations IVSd: 1.0 cm Ao root diam: 2.9 cm LVIDd: 5.4 cm LA dimension: 4.5 cm LVIDs: 4.2 cm LVPWd: 1.0 cm EDV(Teich): 139.3 ml LVOT diam: 1.9 cm ESV(Teich): 78.1 ml Doppler Measurements & Calculations MV E max davion: 71.1 cm/sec Ao V2 max: 143.3 cm/sec MV A max davion: 17.8 cm/sec Ao max P.2 mmHg MV E/A: 4.0 Ao V2 mean: 104.0 cm/sec Ao mean P.1 mmHg Ao V2 VTI: 23.8 cm DAPHNE(I,D): 1.3 cm2 AI P1/2t: 331.0 msec DAPHNE(V,D): 1.6 cm2 AI max davion: 272.8 cm/sec LV V1 max P.4 mmHg AI max P.8 mmHg LV V1 mean P.2 mmHg AI dec slope: 241.4 cm/sec2 LV V1 max: 77.5 cm/sec LV V1 mean: 51.2 cm/sec LV V1 VTI: 10.4 cm MR max davion: 427.7 cm/sec SV(LVOT): 30.9 ml MR max P.4 mmHg TR max davion: 246.6 cm/sec Med Peak E' Davion: 5.0 cm/sec TR max P.0 mmHg Med E/e': 14.3 Lat Peak E' Davion: 9.3 cm/sec Lat E/e': 7.7 Left Ventricle Moderate inferoapical hypokinesis. The remaining gonzales appear globally mildly hypokinetic. Left ventr icular systolic function is borderline reduced. Ejection Fraction = 50%. Right Ventricle The right ventricle is grossly normal size. The right ventricular systolic function is grossly normal . Atria The left atrium is moderately dilated. Right atrial size is normal. Mitral Valve The mitral valve is normal in structure and function. There is no mitral valve stenosis. There is mil d mitral regurgitation. Tricuspid Valve The tricuspid valve is normal in structure and function. There is mild tricuspid regurgitation. There was insufficient TR detected to calculate RV systolic pressure. Aortic Valve The aortic valve opens well. No hemodynamically significant valvular aortic stenosis. Mild aortic regurgitation. Pulmonic Valve The pulmonic valve is not well seen, but is grossly normal. There is no pulmonic valvular stenosis. T race to mild pulmonic valvular regurgitation. Great Vessels The aortic root is normal size. Pericardium/Pleura There is no pericardial effusion. Interpretation Summary Moderate inferoapical hypokinesis. The remaining gonzales appear globally mildly hypokinetic. Left ventricular systolic function is borderline reduced. Ejection Fraction = 50%. The left atrium is moderately dilated. There is mild mitral regurgitation. There is mild tricuspid regurgitation. Mild aortic regurgitation. There is no pericardial effusion. MD Lai *Krys 10/03/2018 03:56 PM
--- NOTE | 2018-10-03 17:29 | PN ---
Teaching Attending Note Name of Resident: Maggie Vides ATTENDING PHYSICIAN STATEMENT I saw and evaluated the patient. I reviewed the resident's note and discussed the case with the resident. I agree with the resident's findings and plan as documented. SUBJECTIVE:53yo M with PMH afib on xarelto, HTN, dyslipidemia presented to the ER with sudden onset of SOB that woke him from sleep. states can not take a deep inspiration. assoc with nausea and WEAVER. states he has not taken his meds for about 3 months because his insurance ran out and he does not have any more meds. states he typically has these symptoms when he is in afib and had synchronized cardioversion in march 2017 to shock him into NSR which was successful and has been in NSR since then. last stress test january 2018. denies fever, chills, cough, N/V/C/D OBJECTIVE: Last Vital Signs Temp Pulse Resp BP Pulse Ox 97.7 F 78 20 176/114 H 100 10/03/18 15:34 10/03/18 16:43 10/03/18 16:43 10/03/18 16:43 10/03/18 15:34 General mildly anxious CV S1 S2 irregular Lungs CTA B/L no wheezing/rales/rhonchi Abdomen soft NT/ND Extremities no pedal edema ASSESSMENT AND PLAN: 53yo M with PMH afib on xarelto, HTN, dyslipidemia presented to the ER with sudden onset of SOB that woke him from sleep he was found to be in rate controlled afib and HTN urgency with BP 215/135 1. HTN urgency- due to non compliance with home medication. started on nicardipine ggt. titrate to optimize BP. will re-start home medications and titrate to optimize control. obtain echo 2. SOB- due to HTN urgency vs heart failure. received lasix 40mg IVP in the ER. clinically looks euvolemic however +diego B lines on CXR. will cont with diuresis. will obtain official echo. cardio consulted 3. Tropinemia- Trop 0.06. titrate cardiac enzymes Q6H. may need to consider ischemia eval. cardiac monitoring 4. Afib on xarelto- rate controlled. re-start xarelto. symptomatic from Afib. might require repeat cardiversion vs ablation. will need to f/u with cardio as outpatient 5. dyslipidemia- re-start statin 6. DVT ppx- xarelto
[2018-10-03] MEDS: ATORVASTATIN CA 10 MG TABLET (FP) PO SCH (21:33)
[2018-10-04 00:38] VITALS: BMI 28.5
[2018-10-04 08:01] LABS: BASO % 0.8 % (0-2.0); EOS % 2.1 % (0-4.5); HEMOGLOBIN 15.8 GM/dL (11.7-16.9); MCH 32.5 pg (25.7-33.7); MCHC 35.1 g/dl (32.0-35.9); MEAN CELL VOLUME 92.7 fl (80-96); MEAN PLT VOLUME 8.4 fl (7.5-11.1); MONO % 10.8 % (3.8-10.2); NEUT % 74.3 % (42.8-82.8); RBC 4.85 M/mm3 (4.00-5.60); RDW 13.2 % (11.9-15.9); WHITE BLOOD COUNT 6.2 K/mm3 (4.0-10.0)
[2018-10-04 08:07] LABS: ALBUMIN 3.6 g/dl (3.4-5.0); BILIRUBIN,TOTAL 1.4 mg/dL (0.2-1); BLOOD UREA NITROGEN 13.5 mg/dL (7-18); CALCIUM 8.6 mg/dL (8.5-10.1); CREATININE 1.1 mg/dL (0.55-1.3); MAGNESIUM 1.8 mg/dL (1.8-2.4); PHOSPHOROUS 2.8 mg/dL (2.5-4.9); POTASSIUM 3.4 mmol/L (3.5-5.1); TOT PROT 7.1 g/dl (6.4-8.2)
--- NOTE | 2018-10-04 08:31 | PN ---
Progress Note, Physician History of Present Illness: Joés Wolf is a 53yM with aflutter h/o RFA 04/17/[address] José Lauren [facility] , HTN, HLD, current smoker, fam h/o CAD presenting with chest discomfort, dyspnea on exertion, orthopnea w/o palpitations, near or true syncope, PND or LE edema, bilateral frontal headache. Smoked marijuana yesterday. Endorses numerous life stressors - laid off work 2 months ago, lost health insurance, only taking pravastatin daily and ran out of antihypertensive agents a month ago , adds salt to diet. BP was noted to be elevated 215/135. Head CT was negative for any acute pathology. Trop was noted to be elevated at 0.06, D-dimer 822, BNP 1615, started on Cardene gtt. 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 Patricio Jewell, [facility]'s pharmacy [facility] last filled May 2018: xarelto 20 qD, valsaran 80 qD, pravastatin 20 qD - Current Medication List Current Medications: Active Medications Atorvastatin Calcium (Lipitor -) 10 mg PO HS [facility] Last Admin: 10/03/18 21:33 Dose: 10 mg Furosemide (Lasix Injection -) 40 mg IVPUSH DAILY [facility] Metoprolol Succinate (Toprol Xl -) 25 mg PO DAILY [facility] Rivaroxaban (Xarelto) 20 mg PO DAILY [facility] Valsartan (Diovan -) 80 mg PO DAILY [facility] - Objective Vital Signs: Vital Signs Temperature 98.0 F 10/04/18 06:00 Pulse Rate 70 10/04/18 06:00 Respiratory Rate 20 10/04/18 06:00 Blood Pressure 129/79 10/04/18 06:00 O2 Sat by Pulse Oximetry (%) 96 10/03/18 23:42 Eyes: Yes: WNL, Conjunctiva Clear, EOM Intact HENT: Yes: WNL, Atraumatic, Normocephalic Neck: Yes: WNL, Supple, Trachea Midline Cardiovascular: Yes: Pulse Irregular, S1, S2 Respiratory: Yes: WNL, Regular, CTA Bilaterally Gastrointestinal: Yes: WNL, Normal Bowel Sounds Genitourinary: Yes: WNL Musculoskeletal: Yes: WNL Extremities: Yes: WNL Edema: No Integumentary: Yes: WNL Neurological: Yes: WNL, Alert, Oriented ...Motor Strength: WNL Psychiatric: Yes: WNL Labs: CBC, BMP 10/04/18 06:04 INR, PTT INR 0.97 (0.83-1.09) 10/03/18 08:00 Assessment/Plan Assessment/Plan 10/03/2018 Echo: Mod inferoapical HK, borderline decreased LVEF 50%m mod LAE, mild MR, TR, AR 03/14/2017 Echo: Rhythm is aflutter, mild dilated LV with mild-mod cLVH mod decreased LVEF 35-40% severe inferoapical HK, mod LAE, normal RV size with mild decreased RV fxn, tr TR RVSP 40-45 mmHg 03/15/2017 Lexiscan Myoview: No ischemia or scra, dilated LV with mod-severe decreased LV fxn LVEF 36% 1. Chest pain and orthopnea referable to acute diastolic heart failure 2. Rate-controlled persistent aflutter s/p RF ablation by José Quijano at [facility] 3. Hypertensive urgency and encephelopathy 4. Hyperlipidemia 5. Current smoker P:1. IV diuresis with monitor diuretic response, renal fxn and electrolytes 2. Wean Cardene gtt, resume Toprol XL 25, Diovan 80 qd, Xarelto 20 qd with uptitration as hemodynamics tolerate 3. Emphasized importance of medication and diet compliance, NSAID avoidance, abstinence from smoking 4. Patient to f/u with Dr. Patricio Jewell as outpatient, DCCV vs repeat RF ablation once compliance and medical insurance re-established Coverage for dr. Fernandez
[2018-10-04 08:41] LABS: PLATELET COUNT 222 K/MM3 (134-434)
[2018-10-04] MEDS: FUROSEMIDE 40 MG/4 ML INJECTABLE VIAL IVPUSH SCH (09:44)
[2018-10-04] MEDS: VALSARTAN 80 MG TABLET (UD) PO SCH (09:44)
[2018-10-04] MEDS: RIVAROXABAN 20 MG TABLET PO SCH (09:44)
[2018-10-04] MEDS ORDERED: metoPROLOL SUCCINATE 25 MG TAB.SR.24H (FP) PO SCH (10:00)
--- NOTE | 2018-10-04 10:04 | PN ---
Progress Note (short form) - Note Progress Note: had episode of SOB this AM when first woke up but feeling much better now. denies CP, SOB, fever, chills, cough, N/V/C/D Current Medications Generic Name Dose Route Start Last Admin Trade Name Jailene PRN Reason Stop Dose Admin Atorvastatin Calcium 10 mg 10/03/18 22:00 10/03/18 21:33 Lipitor - PO 10 mg HS [facility] Administration Furosemide 40 mg 10/04/18 10:00 10/04/18 09:44 Lasix Injection - IVPUSH 40 mg DAILY [facility] Administration Metoprolol Succinate 25 mg 10/04/18 10:00 10/04/18 09:43 Toprol Xl - PO 25 mg DAILY [facility] Administration Rivaroxaban 20 mg 10/04/18 10:00 10/04/18 09:44 Xarelto PO 20 mg DAILY [facility] Administration Valsartan 80 mg 10/04/18 10:00 10/04/18 09:44 Diovan - PO 80 mg DAILY [facility] Administration Last Vital Signs Temp Pulse Resp BP Pulse Ox 97.8 F 71 18 141/82 96 10/04/18 09:45 10/04/18 09:45 10/04/18 09:45 10/04/18 09:45 10/03/18 23:42 General mildly anxious CV S1 S2 irregular Lungs CTA B/L no wheezing/rales/rhonchi Abdomen soft NT/ND Extremities no pedal edema CBCD WBC 6.2 K/mm3 (4.0-10.0) 10/04/18 06:04 RBC 4.85 M/mm3 (4.00-5.60) 10/04/18 06:04 Hgb 15.8 GM/dL (11.7-16.9) 10/04/18 06:04 Hct 45.0 % (35.4-49) 10/04/18 06:04 MCV 92.7 fl (80-96) 10/04/18 06:04 MCHC 35.1 g/dl (32.0-35.9) 10/04/18 06:04 RDW 13.2 % (11.9-15.9) 10/04/18 06:04 Plt Count 222 K/MM3 (134-434) 10/04/18 06:04 MPV 8.4 fl (7.5-11.1) 10/04/18 06:04 CMP Sodium 137 mmol/L (136-145) 10/04/18 06:04 Potassium 3.4 mmol/L (3.5-5.1) L 10/04/18 06:04 Chloride 100 mmol/L (98-107) 10/04/18 06:04 Carbon Dioxide 30 mmol/L (21-32) 10/04/18 06:04 Anion Gap 8 MMOL/L (8-16) 10/04/18 06:04 BUN 13.5 mg/dL (7-18) 10/04/18 06:04 Creatinine 1.1 mg/dL (0.55-1.3) 10/04/18 06:04 Calcium 8.6 mg/dL (8.5-10.1) 10/04/18 06:04 Total Bilirubin 1.4 mg/dL (0.2-1) H 10/04/18 06:04 AST 28 U/L (15-37) 10/04/18 06:04 ALT 47 U/L (13-61) 10/04/18 06:04 Alkaline Phosphatase 97 U/L (45-117) 10/04/18 06:04 Total Protein 7.1 g/dl (6.4-8.2) 10/04/18 06:04 Albumin 3.6 g/dl (3.4-5.0) 10/04/18 06:04 ASSESSMENT AND PLAN: 53yo M with PMH afib on xarelto, HTN, dyslipidemia presented to the ER with sudden onset of SOB that woke him from sleep he was found to be in rate controlled afib and HTN urgency with BP 215/135 1. HTN urgency- due to non compliance with home medication. ggt turned off around 2am. BP much improved. will re-start home medications and titrate up as needed. 2. SOB- due to HTN urgency vs heart failure vs afib. cont with lasix 40mg IV at this time. as per cardio EF looks improved from past records which he was able to obtain. will cont 3. Tropinemia- peak Trop 0.06. likely demand in setting HTN urgency. trended down. can f/u for ischemia eval as outpatient per cardio. 4. Afib on xarelto-had several episodes of Afib with RVR throughout the night but currently rate controlled. re-started on home medications and can titrate up as tolerated. might require repeat cardiversion vs ablation. will need to f/ u with cardio as outpatient 5. elevated TSH- mildly elevated. recommend repeating TSH in 2 weeks to evaluate if would benefit from thyroid replacement. explained this to patient need for repeat labs and eval. 6. dyslipidemia-statin 7. DVT ppx- xarelto 8. would monitor patient to see if BP remains controlled and furtehr IV diuresis. possible discharge in 24H Visit type - Emergency Visit Emergency Visit: Yes ED Registration Date: 10/03/18 Care time: The patient presented to the Emergency Department on the above date and was hospitalized for further evaluation of their emergent condition. - New Patient This patient is new to me today: No - Critical Care Critical Care patient: No - Discharge Referral Referred to [facility] Med P.C[facility] No
[2018-10-04] MEDS: ACETAMINOPHEN 325 MG TABLET (FP) PO PRN (15:16)
[2018-10-04] MEDS: ATORVASTATIN CA 10 MG TABLET (FP) PO SCH (23:29)
[2018-10-05] MEDS: ACETAMINOPHEN 325 MG TABLET (FP) PO PRN ×2 (02:21→21:14)
[2018-10-05] MEDS: VALSARTAN 80 MG TABLET (UD) PO SCH ×2 (02:21→10:34)
[2018-10-05] MEDS: RIVAROXABAN 20 MG TABLET PO SCH (10:34)
[2018-10-05] MEDS: FUROSEMIDE 40 MG/4 ML INJECTABLE VIAL IVPUSH SCH (10:34)
[2018-10-05 11:33] LABS: ALBUMIN 3.9 g/dl (3.4-5.0); BILIRUBIN,TOTAL 0.6 mg/dL (0.2-1); BLOOD UREA NITROGEN 26.6 mg/dL (7-18); CALCIUM 9.4 mg/dL (8.5-10.1); CREATININE 1.4 mg/dL (0.55-1.3); MAGNESIUM 2.4 mg/dL (1.8-2.4); POTASSIUM 3.7 mmol/L (3.5-5.1); TOT PROT 7.7 g/dl (6.4-8.2)
--- NOTE | 2018-10-05 13:39 | PN ---
Teaching Attending Note Name of Resident: Valentine Dorantes ATTENDING PHYSICIAN STATEMENT I saw and evaluated the patient. I reviewed the resident's note and discussed the case with the resident. I agree with the resident's findings and plan as documented. SUBJECTIVE:feels more SOB today than yesterday. difficulty ambulating to the bathroom. states not as severe when first arrived but different than baseline. denies CP, fever, chills, cough, N/V/C/D/ WEAVER also resolved OBJECTIVE: Last Vital Signs Temp Pulse Resp BP Pulse Ox 98.6 F 69 20 157/105 H 97 10/05/18 09:39 10/05/18 09:39 10/05/18 09:39 10/05/18 09:39 10/05/18 09:00 General NAD CV S1 S2 irregular Lungs CTA B/L no wheezing/rales/rhonchi ASSESSMENT AND PLAN: 53yo M with PMH afib on xarelto, HTN, dyslipidemia presented to the ER with sudden onset of SOB that woke him from sleep he was found to be in rate controlled afib and HTN urgency with BP 215/135 1. HTN urgency- due to non compliance with home medication. BP improved but not at goal. will titrate up meds as tolerated. will increase metoprolol to 50mg and possible valsartan if needed. WEAVER resolved. does not require drip at this time. 2. SOB- due to HTN urgency vs heart failure vs afib. appears to be in aflutter on monitor which may be causing symptoms. may benefit from cardioversion vs ablation. will hold lasix. increase metoprolol. 3. Tropinemia- peak Trop 0.06. likely demand in setting HTN urgency. trended down. can f/u for ischemia eval as outpatient per cardio. 4. Afib on xarelto-aflutter on monitor. increase metoprolol. may need cardioversion however has not been on anticoagulation for extended perior which may pose risks. will need to d/w cardio options at this time if remains symptomatic. 5. elevated TSH- mildly elevated. recommend repeating TSH in 2 weeks to evaluate if would benefit from thyroid replacement. explained this to patient need for repeat labs and eval. 6. ANDREA- medication induced. will d/c lasix. repeat lab. 7. dyslipidemia-statin 8. DVT ppx- xarelto
--- NOTE | 2018-10-05 13:47 | PN ---
Physical Exam: SUBJECTIVE: Patient seen and examined this AM. Continues to have SOB with minimal exertion. WEAVER has improved. Denies any fevers, chills, chest pain, nausea , vomiting, diarrhea constipation. OBJECTIVE: Vital Signs Period Temp Pulse Resp BP Sys/Galarza Pulse Ox Last 24 Hr 98 F-98.6 F 68-91 18-20 129-172/85-124 97-98 GENERAL: A&Ox3, NAD HEAD: NCAT EYES: PERRL, EOMI ENT: moist mucous membranes NECK: Supple LUNGS: Clear to auscultation bilaterally, no wheezes, no crackles HEART: Regular rate and rhythm, S1, S2 without murmur ABDOMEN: Soft, nontender, nondistended, +bowel sounds, no guarding EXTREMITIES: no edema NEUROLOGICAL: Cranial nerves II through XII grossly intact. Normal speech SKIN: Warm, dry Laboratory Results - last 24 hr 10/05/18 10:50 Sodium 137 Potassium 3.7 Chloride 99 Carbon Dioxide 37 H Anion Gap 2 L BUN 26.6 H Creatinine 1.4 H Est GFR (CKD-EPI)AfAm 65.55 Est GFR (CKD-EPI)NonAf 56.56 Random Glucose 102 Calcium 9.4 Magnesium 2.4 Total Bilirubin 0.6 AST 29 ALT 54 Alkaline Phosphatase 100 Total Protein 7.7 Albumin 3.9 Active Medications Acetaminophen (Tylenol -) 650 mg PO Q6H PRN PRN Reason: PAIN Last Admin: 10/05/18 02:21 Dose: 650 mg Atorvastatin Calcium (Lipitor -) 10 mg PO HS [facility] Last Admin: 10/04/18 23:29 Dose: 10 mg Metoprolol Succinate (Toprol Xl -) 50 mg PO DAILY [facility] Last Admin: 10/05/18 10:34 Dose: 50 mg Rivaroxaban (Xarelto) 20 mg PO DAILY [facility] Last Admin: 10/05/18 10:34 Dose: 20 mg Valsartan (Diovan -) 80 mg PO DAILY [facility] Last Admin: 10/05/18 10:34 Dose: Not Given IMAGING: -CXR: No evidence of widening of the superior mediastinum. The heart is borderline enlarged. Normal contour of the thoracic aorta. The lungs are well aerated without evidence of a pulmonary infiltrates, pulmonary edema. No pneumothorax, or large pleural effusion is seen. No evidence of blunting of the costophrenic angles. Increased lung markings noted in the lower lung zones with suggestion of the right-sided La B lines. Clinically correlate with CHF. -CT Head without Contrast: No evidence of acute intracranial hemorrhage, edema, midline shift, mass effect, or skull fracture. No CT evidence of acute territorial infarction. -Chest CTA: No evidence of pulmonary artery emboli. Patchy groundglass opacities as discussed above, short-term follow-up after medical treatment recommended. Bilateral small pleural effusions. Additional comments noted above. -ECHO: Moderate inferoapical hypokinesis. Remaining gonzales appear globally mildly hypokinetic. LV EF 50%. Mild MR, TR, AR. LA is moderately dilated. -EKG: ATRIAL FLUTTER WITH 4:1 A-V CONDUCTION, RBBB, VR 69, QTc 567 ASSESSMENT/PLAN: 53 y/o M with PMHx AFib (on Rivaroxaban), HTN, HLD presents with worsening SOB and chest discomfort, admitted for Hypertensive Emergency. #Hypertensive urgency -Initial BP 215/135; Likely due to medication noncompliance since loss of employment 1 month ago -BP has improved but remains above goal -Echo and further imaging noted above -No longer on Cardene GTT; Continue Valsartan 80mg PO Daily, Increase Metoprolol to 50mg PO Daily, Will titrate up as needed -TSH 6.95; Will need to repeat in 2 weeks -Cardiology (Dr. Daniels) consulted, Appreciate Rec's, #SOB -In the setting of Hypertensive urgency VS AFib VS CHF -Tele monitor reveals possible AFlutter -Case disccused with Cardio who suggest patient would benefit from DCCV vs repeat ablation -Hold IV Diuresis for now as patient does not appear fluid overloaded -Strict I&Os, Daily weights -Monitor lytes and renal function #AFib, Controlled -Continue Rivaroxaban 20mg daily -Rate control via Metoprolol Succinate 50 mg PO Daily #ANDREA -In the setting of Diuretic use -Hold Lasix -Trend BMP #Tropinemia -Demand in the setting of hypertensive urgency -Trops 0.06 --> 0.05 -Ischemia Evaluation as an outpatient #Hyperlipidemia -Continue statin #FEN -No standing fluids -Replete lytes PRN -Na restricted diet #PPx -DVT: NOAC Disp: Tele monitoring Visit type - Emergency Visit Emergency Visit: Yes ED Registration Date: 10/03/18 Care time: The patient presented to the Emergency Department on the above date and was hospitalized for further evaluation of their emergent condition. - New Patient This patient is new to me today: No - Critical Care Critical Care patient: No ATTENDING PHYSICIAN STATEMENT I saw and evaluated the patient. I reviewed the resident's note and discussed the case with the resident. I agree with the resident's findings and plan as documented. SUBJECTIVE: OBJECTIVE: ASSESSMENT AND PLAN:
[2018-10-05] MEDS: ATORVASTATIN CA 10 MG TABLET (FP) PO SCH (21:16)
[2018-10-06 08:28] LABS: BLOOD UREA NITROGEN 27.6 mg/dL (7-18); CALCIUM 9.3 mg/dL (8.5-10.1); CREATININE 1.3 mg/dL (0.55-1.3); MAGNESIUM 2.2 mg/dL (1.8-2.4); POTASSIUM 4.3 mmol/L (3.5-5.1)
[2018-10-06 08:51] VITALS: TEMP 97.7
[2018-10-06] MEDS ORDERED: VALSARTAN 160 MG TABLET (UD) PO SCH (10:00)
[2018-10-06] MEDS: RIVAROXABAN 20 MG TABLET PO SCH (10:43)
--- NOTE | 2018-10-06 10:55 | PN ---
Progress Note, Physician History of Present Illness: Chest discomfort, dyspnea on exertion, orthopnea. bilateral frontal headache all resolved with BP control and diuresis, feels well. Rate-controlled aflutter. - Current Medication List Current Medications: Active Medications Acetaminophen (Tylenol -) 650 mg PO Q6H PRN PRN Reason: PAIN Last Admin: 10/05/18 21:14 Dose: 650 mg Atorvastatin Calcium (Lipitor -) 10 mg PO HS [facility] Last Admin: 10/05/18 21:16 Dose: 10 mg Metoprolol Succinate (Toprol Xl -) 50 mg PO DAILY [facility] Last Admin: 10/06/18 10:43 Dose: 50 mg Rivaroxaban (Xarelto) 20 mg PO DAILY [facility] Last Admin: 10/06/18 10:43 Dose: 20 mg Valsartan (Diovan -) 160 mg PO DAILY [facility] Last Admin: 10/06/18 10:43 Dose: 160 mg - Objective Vital Signs: Vital Signs Temperature 97.7 F 10/06/18 08:50 Pulse Rate 69 10/06/18 08:50 Respiratory Rate 18 10/06/18 08:50 Blood Pressure 151/90 10/06/18 08:50 O2 Sat by Pulse Oximetry (%) 99 10/06/18 08:48 Constitutional: Yes: No Distress, Calm Neck: Yes: Supple Cardiovascular: Yes: Regular Rate and Rhythm Respiratory: Yes: Regular, CTA Bilaterally Gastrointestinal: Yes: Normal Bowel Sounds, Soft Edema: No Labs: CBC, BMP 10/04/18 06:04 10/06/18 07:00 INR, PTT INR 0.97 (0.83-1.09) 10/03/18 08:00 - ....Imaging EKG: Report Reviewed (Tele: Rate-controlled aflutter) Problem List - Problems (1) Acute systolic (congestive) heart failure Code(s): I50.21 - ACUTE SYSTOLIC (CONGESTIVE) HEART FAILURE (2) Hyperlipidemia Code(s): E78.5 - HYPERLIPIDEMIA, UNSPECIFIED Qualifiers: Hyperlipidemia type: pure hypercholesterolemia Qualified Code(s): E78.00 - Pure hypercholesterolemia, unspecified; E78.0 - Pure hypercholesterolemia (3) Hypertensive encephalopathy Code(s): I67.4 - HYPERTENSIVE ENCEPHALOPATHY (4) Atrial flutter Code(s): I48.92 - UNSPECIFIED ATRIAL FLUTTER Qualifiers: Atrial flutter type: typical Qualified Code(s): I48.3 - Typical atrial flutter (5) S/P radiofrequency ablation operation for arrhythmia Code(s): Z98.890 - OTHER SPECIFIED POSTPROCEDURAL STATES; Z86.79 - PERSONAL HISTORY OF OTHER DISEASES OF THE CIRCULATORY SYSTEM (6) Hypertensive urgency Code(s): I16.0 - HYPERTENSIVE URGENCY Assessment/Plan 10/03/2018 Echo: Mod inferoapical HK, borderline decreased LVEF 50%m mod LAE, mild MR, TR, AR 03/14/2017 Echo: Rhythm is aflutter, mild dilated LV with mild-mod cLVH mod decreased LVEF 35-40% severe inferoapical HK, mod LAE, normal RV size with mild decreased RV fxn, tr TR RVSP 40-45 mmHg 03/15/2017 Lexiscan Myoview: No ischemia or scra, dilated LV with mod-severe decreased LV fxn LVEF 36% 1. Chest pain and orthopnea referable to acute diastolic heart failure 2. Rate-controlled persistent aflutter s/p RF ablation by José Quijano at [facility] 3. Hypertensive urgency and encephelopathy 4. Hyperlipidemia 5. Current smoker P: 1. Continue Toprol XL 50 qd, Diovan 160 qd qd, Lipitor 10 qhs, Xarelto 20 qd with uptitration as hemodynamics tolerate 2. Emphasized importance of medication and diet compliance, NSAID avoidance, abstinence from smoking 3. Patient may be d/avani with cardiology f/u as outpatient, DCCV vs repeat RF ablation once compliance and medical insurance re-established
[2018-10-06 13:53] VITALS: BP 146/99; PULSE 69
--- NOTE | 2018-10-06 15:09 | PN ---
Teaching Attending Note Name of Resident: Suzanna Mondragon ATTENDING PHYSICIAN STATEMENT I saw and evaluated the patient. I reviewed the resident's note and discussed the case with the resident. I agree with the resident's findings and plan as documented. SUBJECTIVE:states breathing has resolved. denies CP, SOB, fever, chills, N/V/C/D OBJECTIVE: Last Vital Signs Temp Pulse Resp BP Pulse Ox 97.7 F 69 18 146/99 99 10/06/18 13:52 10/06/18 13:52 10/06/18 13:52 10/06/18 13:52 10/06/18 08:48 General NAD ASSESSMENT AND PLAN: 53yo M with PMH afib on xarelto, HTN, dyslipidemia presented to the ER with sudden onset of SOB that woke him from sleep he was found to be in rate controlled afib and HTN urgency with BP 215/135 1. HTN urgency- due to non compliance with home medication. BP improved but not at goal. increase valsartan. 2. SOB- due to HTN urgency vs heart failure vs afib. remains in aflutter but rate improved. cont current therapy. may benefit from cardioversion vs ablation as outpatient 3. Tropinemia- peak Trop 0.06. likely demand in setting HTN urgency. trended down. can f/u for ischemia eval as outpatient per cardio. 4. Afib on xarelto-aflutter on monitor. increase metoprolol. may need cardioversion however has not been on anticoagulation for extended perior which may pose risks. will need close cardiac monitoring 5. elevated TSH- mildly elevated. recommend repeating TSH in 2 weeks to evaluate if would benefit from thyroid replacement. explained this to patient need for repeat labs and eval. 6. ANDREA- medication induced. now resolved 7. dyslipidemia-statin 8. DVT ppx- xarelto 9. d/c home today pending results of BP response. counseled extensively on need for medication compliance and follow up
--- NOTE | 2018-10-06 18:29 | DS ---
Physical Exam: SUBJECTIVE: Patient seen and examined at bedside. No acute complaints. OBJECTIVE: Vital Signs Period Temp Pulse Resp BP Sys/Galarza Pulse Ox Last 24 Hr 97.6 F-98.2 F 65-71 18-19 146-160/90-113 98-99 PHYSICAL EXAM GENERAL: The patient is awake, alert, and fully oriented, in no acute distress. HEAD: NCAT LUNGS: Breath sounds equal, clear to auscultation bilaterally, no wheezes, no crackles, no accessory muscle use. HEART: Regular rate and rhythm, S1, S2 without murmurs ABDOMEN: Soft, nontender, nondistended, normoactive bowel sounds EXTREMITIES: 2+ pulses, warm, well-perfused, no edema. SKIN: Warm, dry, normal turgor, no rashes or lesions noted. LABS Laboratory Results - last 24 hr 10/06/18 07:00 Sodium 138 Potassium 4.3 Chloride 98 Carbon Dioxide 35 H Anion Gap 4 L BUN 27.6 H Creatinine 1.3 Est GFR (CKD-EPI)AfAm 71.69 Est GFR (CKD-EPI)NonAf 61.86 Random Glucose 99 Calcium 9.3 Magnesium 2.2 HOSPITAL COURSE: 53 y.o. M PMH A-fib on Rivaroxaban, HTN, HLD presented to [facility] with SOB and chest pain. Pt found to be in hypertensive urgency with BP 215/135 and elevated troponins to 0.06; repeat troponins downtrended. In ED pt was started on nicardipine drip. BP then controlled with Valsartan and metoprolol. Found to have CHF findings on CXR and chest CTA. Hypokinesis present on echo. A- flutter present on EKG. Patient is currently clinically and hemodynamically stable. Denies chest pain and shortness of breath. Pt is to follow up with painter and decorator apprentice outpatient for DC cardioversion with Dr. Jewell. Date of Admission:10/03/18 -CXR: No evidence of widening of the superior mediastinum. The heart is borderline enlarged. Normal contour of the thoracic aorta. The lungs are well aerated without evidence of a pulmonary infiltrates, pulmonary edema. No pneumothorax, or large pleural effusion is seen. No evidence of blunting of the costophrenic angles. Increased lung markings noted in the lower lung zones with suggestion of the right-sided La B lines. Clinically correlate with CHF. -CT Head without Contrast: No evidence of acute intracranial hemorrhage, edema, midline shift, mass effect, or skull fracture. No CT evidence of acute territorial infarction. -Chest CTA: No evidence of pulmonary artery emboli. Patchy groundglass opacities as discussed above, short-term follow-up after medical treatment recommended. Bilateral small pleural effusions. Additional comments noted above. -ECHO: Moderate inferoapical hypokinesis. Remaining gonzales appear globally mildly hypokinetic. LV EF 50%. Mild MR, TR, AR. LA is moderately dilated. -EKG: ATRIAL FLUTTER WITH 4:1 A-V CONDUCTION, RBBB, VR 69, wtc 567 Date of Discharge: 10/06/18 Minutes to complete discharge: 36 Discharge Summary Reason For Visit: CHEST PAIN Condition: Stable - Instructions Diet, Activity, Other Instructions: You presented to the hospital with shortness of breath and were found to have an elevated Blood pressure likely due to not taking medicatoins. Your BP improved with medications and you were seen by a painter and decorator apprentice. Medication Changes: 1. Your Valsartan (Diovan) dose was increased to 160mg Daily 2. Stop using Pravastatin; Start taking Atorvastatin 10mg at bedtime 3. Your Metoprolol succinate (Toprol XL) dose was increasted to 50mg Daily Follow up with the following physicians: 1. Primary care provider in 1 week. 2. Guide Travel (Dr. Frederick) in 1 week to further manage your arrhythmia as you may require a repeat cardiversion and/or possibly an ablation. One of your cardiac enzymes was elevated initially; You should discuss this finding with your painter and decorator apprentice as you may need an ischemia workup. Further Care: 1. One of your thyroid hormone (TSH) levels was elevated; You will need to repeat this value in 2 weeks. Please discuss this finding with your PCP. 2. One of your images (Chest CTA) revealed Patchy groundglass opacities; Please discuss this finding with your PCP as short-term follow-up and possibly reimaging is recommended. 3. It is very important you take all of your medications an maintain a Low salt and Low cholesterol diet. 4. You must avoid NSAID use 5. You must stop smoking You are being discharged home. Please continue taking all other medications as prescribed. Please return to the ER if you have any signs or symptoms of confusion, chest pain, shortness of breath, confusion, dizziness, fatigue, fevers, vomiting, muscle pains or weakness. Please return to the ER if symptoms persist, worsen, or new symptoms arise. Referrals: Jakob Parson MD [Staff Physician] - Akbar Frederick MD [Staff Physician] - Suzanna Mondragon RES [Resident] - Disposition: HOME - Home Medications Comprehensive Discharge Medication List: Ambulatory Orders Rivaroxaban [Xarelto -] 20 mg PO DAILY 10/03/18 Atorvastatin Ca [Lipitor] 10 mg PO HS #30 tablet 10/06/18 Metoprolol Succinate [Toprol XL -] 50 mg PO DAILY #30 tab.sr.24h 10/06/18 Rivaroxaban [Xarelto -] 20 mg PO DAILY #30 tablet 10/06/18 Valsartan [Diovan] 160 mg PO DAILY #30 tablet 10/06/18 This patient is new to me today: No Emergency Visit: No Critical Care patient: No - Discharge Referral Referred to [facility] No ATTENDING PHYSICIAN STATEMENT I saw and evaluated the patient. I reviewed the resident's note and discussed the case with the resident. I agree with the resident's findings and plan as documented. SUBJECTIVE: OBJECTIVE: ASSESSMENT AND PLAN:
== END 2018-10-06 15:27 | disposition home or self-care (01) | DRG 199 ==
LOC: JER 07:17 → JERBED 10:06 → MERGE 14:26 → OBSVTOIN 14:26 → J4W 19:04
PROVIDERS: ADMIT Internal Medicine; ATTEND Internal Medicine
DX: I16.0 Hypertensive urgency (principal); I11.0 Hypertensive heart disease with heart failure; I25.10 Atherosclerotic heart disease of native coronary artery without angina pectoris; E78.5 Hyperlipidemia, unspecified; F17.210 Nicotine dependence, cigarettes, uncomplicated; I48.92 Unspecified atrial flutter; I45.10 Unspecified right bundle-branch block; I67.4 Hypertensive encephalopathy; I44.39 Other atrioventricular block; Z91.19 Patient's noncompliance with other medical treatment and regimen; I48.91 Unspecified atrial fibrillation; N17.9 Acute kidney failure, unspecified; I50.31 Acute diastolic (congestive) heart failure; F12.90 Cannabis use, unspecified, uncomplicated; I24.8 Other forms of acute ischemic heart disease
CPT/HCPCS: 36415; 70450-TC; 71045-TC-FY; 71275-TC; 76604; 80048; 80053; 80061; 82550; 83036; 83721; 83735; 83880; 84100; 84443; 84484; 85025; 85379; 85610; 85730; 93005; 93010; 93306-TC; 93308; 99285-25; G0378

== ENCOUNTER 2018-11-14 16:10 | Inpatient (IN) | payer OTHER ==
[2018-11-14 16:19] VITALS: BMI 28.0
--- NOTE | 2018-11-14 16:25 | PDOC ---
Rapid Medical Evaluation Time Seen by Provider: 11/14/18 16:16 Medical Evaluation: Allergies Allergy/AdvReac Type Severity Reaction Status Date / Time No Known Allergies Allergy Verified 08/31/11 15:43 11/14/18 16:18 Pt c/o: dizziness, chest pressure x 2 months, pending ablation for afib, sent by PCP dr. Parson for elevated bp despite starting amlodipine pt on brief exam: BP elevated, appears uncomfortable pt ordered for: labs, ekg, cxr, iv, cardiac monitoring pt to proceed to ED Discharge Disposition - Diagnosis Hypertensive urgency Chest pain Qualifiers: Chest pain type: unspecified Qualified Code(s): R07.9 - Chest pain, unspecified - Discharge Dispostion Disposition: HOME Condition at time of disposition: Good - Referrals - Patient Instructions - Post Discharge Activity
[2018-11-14 17:18] LABS: EOS % 2.6 % (0-4.5); HEMATOCRIT 40.6 % (35.4-49); HEMOGLOBIN 14.2 GM/dL (11.7-16.9); LYMPH % 18.1 % (8-40); MCH 33.3 pg (25.7-33.7); MEAN PLT VOLUME 8.9 fl (7.5-11.1); NEUT % 70.3 % (42.8-82.8); PLATELET COUNT 275 K/MM3 (134-434); RBC 4.27 M/mm3 (4.00-5.60); RDW 13.8 % (11.9-15.9); WHITE BLOOD COUNT 7.5 K/mm3 (4.0-10.0)
--- NOTE | 2018-11-14 17:25 | PDOC ---
History of Present Illness - General Chief Complaint: Chest Pain Stated Complaint: SHORTNESS OF BREATH/POSSIBLE HIGH B/P Time Seen by Provider: 11/14/18 16:16 History Source: Patient - History of Present Illness Initial Comments: 11/14/18 17:24 Mr. Wolf is a 53 y/o man with hx CHF, afib on xarelto, HTN, HLD presenting with one day of worsening dyspnea on exertion with squeezing chest discomfort. He reports that he has had similar episodes in the past, but that they are normally very fleeting and he became concerned when the dyspnea did not immediately resolve today. He reports that the pressure and dyspnea began at 1030 this morning, and is severe enough that he becomes dyspneic when speaking short sentences. He reports short episodes of sharp substernal abdomen pain with deep inspiration, but denies any ongoing chest pain. He reports onset of mild dizziness at the same time. He denies any swelling in the lower extremities , fatigue, changes in vision, or palpitations. He reports that two days ago () he was scheduled for a cardiac ablation and was catheterized, however the procedure was cancelled when it was decided that the procedure would need to occur on the L side of the heart, which was a more involved procedure than they had planned for. Today he started amlodipine 5mg for HTN. He reports taking all of his medications today. Past History - Past Medical History Allergies/Adverse Reactions: Allergies Allergy/AdvReac Type Severity Reaction Status Date / Time No Known Allergies Allergy Verified 11/14/18 16:20 Home Medications: Ambulatory Orders Rivaroxaban [Xarelto -] 20 mg PO DAILY 10/03/18 Atorvastatin Ca [Lipitor] 10 mg PO HS #30 tablet 10/06/18 Metoprolol Succinate [Toprol XL -] 50 mg PO DAILY #30 tab.sr.24h 10/06/18 Valsartan [Diovan] 160 mg PO DAILY #30 tablet 10/06/18 Amlodipine Besylate 5 mg PO DAILY 11/14/18 Anemia: No Asthma: No Cancer: No Cardiac Disorders: Yes (afib, cardioversion) CVA: No COPD: No CHF: Yes Dementia: No Diabetes: No GI Disorders: No Disorders: No HTN: Yes Hypercholesterolemia: Yes Liver Disease: No Seizures: No Thyroid Disease: No - Surgical History Abdominal Surgery: Yes (hernia repair, gallbladder removal) Appendectomy: No Cardiac Surgery: No Cholecystectomy: Yes Lung Surgery: No Neurologic Surgery: No Orthopedic Surgery: Yes ((L)GREAT TOE TENDONS REMOVED) - Suicide/Smoking/Psychosocial Hx Smoking Status: Yes Smoking History: Current every day smoker Have you smoked in the past 12 months: Yes Number of Cigarettes Smoked Daily: 2 Information on smoking cessation initiated: No 'Breaking Loose' booklet given: 04/01/17 Hx Alcohol Use: Yes (daily) Drug/Substance Use Hx: Yes Substance Use Type: None, Marijuana Hx Substance Use Treatment: No Review of Systems - Review of Systems Able to Perform ROS?: Yes Comments:: 11/14/18 23:11 ROS: GENERAL/CONSTITUTIONAL: No fever or chills. No weakness. HEAD, EYES, EARS, NOSE AND THROAT: No change in vision. No ear pain or discharge. No sore throat. CARDIOVASCULAR: Shortness of breath. No chest pain RESPIRATORY: No cough, wheezing, or hemoptysis. GASTROINTESTINAL: No nausea, vomiting, diarrhea or constipation. GENITOURINARY: No dysuria, frequency, or change in urination. MUSCULOSKELETAL: No joint or muscle swelling or pain. No neck or back pain. SKIN: No rash NEUROLOGIC: No headache, vertigo, loss of consciousness, or change in strength/ sensation. ENDOCRINE: No increased thirst. No abnormal weight change HEMATOLOGIC/LYMPHATIC: No anemia, easy bleeding, or history of blood clots. ALLERGIC/IMMUNOLOGIC: No hives or skin allergy. *Physical Exam - Vital Signs Last Vital Signs Temp Pulse Resp BP Pulse Ox 97.7 F 74 20 210/134 H 98 11/14/18 16:16 11/14/18 16:16 11/14/18 16:16 11/14/18 16:16 11/14/18 16:16 - Physical Exam Comments: 11/14/18 23:10 PE: GENERAL: Awake, alert, and fully oriented. HEAD: No signs of trauma, normocephalic, atraumatic EYES: PERRLA, EOMI, sclera anicteric, conjunctiva clear ENT: Auricles normal inspection, hearing grossly normal, nares patent, oropharynx clear without exudates. Moist mucosa NECK: Normal ROM, supple, no lymphadenopathy, JVD, or masses LUNGS: Mild distress, dyspnea with short sentences, clear to auscultation bilaterally HEART: Regular rate and rhythm, normal S1 and S2, no murmurs, rubs or gallops, peripheral pulses normal and equal bilaterally. ABDOMEN: Soft, nontender, normoactive bowel sounds. No guarding, no rebound. No masses EXTREMITIES : Normal inspection, Normal range of motion, no edema. No clubbing or cyanosis. NEUROLOGICAL: Normal speech, normal gait, no focal sensorimotor deficits SKIN: Warm, Dry, normal turgor, no rashes or lesions noted ED Treatment Course - LABORATORY CBC & Chemistry Diagram: 11/14/18 16:39 11/14/18 16:39 - ADDITIONAL ORDERS Additional order review: Laboratory Results 11/14/18 16:39 Blood Type Cancelled Antibody Screen Cancelled Medical Decision Making - Medical Decision Making 11/14/18 18:07 53 y/o M with hx CHF, afib on xarelto, HTN, recent cardiac instrumentation p/w dyspnea on exertion and chest pressure alongside mild dizziness, consistent with CHF vs ACS. Hypertensive urgency also on differential given HTN and dizziness. Plan: EKG CXR CBC CMP Cardiac Profile Consult Dr. Nuñez (glove parts inspector whom scheduled ablation) Dispo: Pending labs, imaging --- CXR - notable for mild effusion on L side, no consolidations or other acute process 11/14/18 18:25 Troponin - negative BNP - 1233 Plan for Lasix 40 IVPB 11/14/18 18:28 Cardiac center identified as: [facility] [address] [place] [address] [place] 11/14/18 18:44 40 mg Lasix administered Urine cup provided for UA 11/14/18 19:32 UA sent, pending Case discussed with Dr. Rider. Plan for inpatient admission for CHF exacerbation, hypertensive urgency *DC/Admit/Observation/Transfer Diagnosis at time of Disposition: Hypertensive urgency Chest pain Qualifiers: Chest pain type: unspecified Qualified Code(s): R07.9 - Chest pain, unspecified - Referrals - Patient Instructions - Post Discharge Activity
[2018-11-14 17:34] LABS: INR 1.18 (0.83-1.09); PROTHROMBIN TIME (PATIENT) 13.9 SEC (9.7-13.0)
--- NOTE | 2018-11-14 18:09 | PDOC ---
Documentation entered by Marj Granados SCRIBE, acting as scribe for iFlomena Rider MD. Filomena Rider MD: This documentation has been prepared by the Darwin galloway Adrianna, SCRIBE, under my direction and personally reviewed by me in its entirety. I confirm that the documentation accurately reflects all work, treatment, procedures, and medical decision making performed by me. Attending Attestation - Resident Resident Name: Mio Sawyer - HPI HPI: The patient is a 53 year old male, with a significant PMH of CHF, HTN, Afib (on Xarelto), and HLD, who presents to the ED for evaluation of dyspnea and chest discomfort for one day. He reports feeling increasingly short of breath earlier this morning, with associated dyspnea on exertion (patient struggles walking 10- 15ft and has to stop multiple times to catch his breath). Patient additionally reports chest discomfort, heaviness, and elevated blood pressure. He notes that he was supposed to have a cardiac ablation two days ago, but the procedure was postponed secondary to the procedure being more invasive than expected. Patient states he took all of his daily medications today. Allergies: NKA, NKDA Surgical History: Abdominal hernia repair, cholecystectomy, left great toe tendon removal Social History: Current everyday smoker (2 cigarettes per day). Marijuana use. PCP: Dr. Parson - Physicial Exam PE: GENERAL: Awake, alert, and fully oriented, in moderate distress. HEAD: No signs of trauma LUNGS: +Tachypnic, speaking in 3-4 word sentences with conversational dyspnea. Breath sounds equal, clear to auscultation bilaterally. No wheezes, and no crackles HEART: Regular rate and rhythm, normal S1 and S2, no murmurs, rubs or gallops ABDOMEN: Soft, nontender, normoactive bowel sounds. No guarding, no rebound. No masses EXTREMITIES: Normal range of motion, no edema. No clubbing or cyanosis. No cords, erythema, or tenderness NEUROLOGICAL: Cranial nerves II through XII grossly intact. Normal speech SKIN: Warm, Dry, normal turgor, no rashes or lesions noted. - Medical Decision Making 11/14/18 17:54 pt presents to the ED complaining of substernal chest pressure and shortness of breath. Patient is quite dyspneic on my exam. Differential includes ACS, CHF, hypertensive urgency. Patient is hypertensive, but complains of only vague pain --dissection is less likely. EKG is not concerning for acute ischemia. Will check labs and cardiac enzymes, BNP. Will admit to medicine for continued management. ED Treatment Course - LABORATORY CBC & Chemistry Diagram: 11/14/18 16:39 11/14/18 16:39 - ADDITIONAL ORDERS Additional order review: Laboratory Results 11/14/18 11/14/18 11/14/18 19:55 19:10 16:39 PT with INR 13.90 H INR 1.18 H Sodium Potassium Chloride Carbon Dioxide Anion Gap BUN Creatinine Est GFR (CKD-EPI)AfAm Est GFR (CKD-EPI)NonAf Random Glucose Calcium Magnesium Total Bilirubin AST ALT Alkaline Phosphatase Creatine Kinase Troponin I 0.05 B-Natriuretic Peptide Total Protein Albumin Urine Color Yellow Urine Appearance Clear Urine pH 6.5 Ur Specific [place] 1.009 L Urine Protein Negative Urine Glucose (UA) Negative Urine Ketones Negative Urine Blood Negative Urine Nitrite Negative Urine Bilirubin Negative Urine Urobilinogen 0.2 Ur Leukocyte Esterase Negative Blood Type Antibody Screen 11/14/18 11/14/18 11/14/18 16:39 16:39 16:39 PT with INR INR Sodium 141 Potassium 4.5 Chloride 107 Carbon Dioxide 26 Anion Gap 7 L BUN 20.0 H Creatinine 1.1 Est GFR (CKD-EPI)AfAm 87.74 Est GFR (CKD-EPI)NonAf 75.70 Random Glucose 87 Calcium 9.1 Magnesium 2.1 Total Bilirubin 0.4 AST 27 ALT 34 Alkaline Phosphatase 88 Creatine Kinase 87 Troponin I 0.03 B-Natriuretic Peptide 1223.3 H Total Protein 7.2 Albumin 3.7 Urine Color Urine Appearance Urine pH Ur Specific [place] Urine Protein Urine Glucose (UA) Urine Ketones Urine Blood Urine Nitrite Urine Bilirubin Urine Urobilinogen Ur Leukocyte Esterase Blood Type Cancelled Antibody Screen Cancelled 11/14/18 16:39 RBC 4.27 MCV 95.0 MCHC 35.0 RDW 13.8 MPV 8.9 Neutrophils % 70.3 Lymphocytes % 18.1 D Monocytes % 8.0 Eosinophils % 2.6 Basophils % 1.0 - RADIOLOGY Radiograph Interpretation: EXAM#: TYPE/EXAM: RESULT: [id number] CT/HEAD CT WITHOUT CONTRAST Cranial CT without contrast Clinical information: elevated BP Impression: No CT evidence of acute intracranial pathology. There has been no definite interval change in comparison to a prior CT study of 10/03/2018. Reported By: Theo Foster MD 11/14/18 21:05 - Medications Given in the ED: ED Medications Discontinued Medications Generic Name Dose Route Start Last Admin Trade Name Freq PRN Reason Stop Dose Admin Furosemide 40 mg 11/14/18 18:24 11/14/18 18:44 Lasix Injection - IVPUSH 11/14/18 18:25 40 mg ONCE ONE Administration Furosemide 40 mg 11/14/18 20:25 11/14/18 21:23 Lasix Injection - IVPUSH 11/14/18 20:26 40 mg ONCE ONE Administration Hydralazine HCl 10 mg 11/14/18 20:29 11/14/18 21:23 Apresoline Injection - IVPUSH 11/14/18 20:30 10 mg ONCE ONE Administration
[2018-11-14 18:21] LABS: ALBUMIN 3.7 g/dl (3.4-5.0); BILIRUBIN,TOTAL 0.4 mg/dL (0.2-1); CALCIUM 9.1 mg/dL (8.5-10.1); CREATININE 1.1 mg/dL (0.55-1.3); N-TERMINAL BNP 1223.3 pg/ml (5-125); POTASSIUM 4.5 mmol/L (3.5-5.1); TOT PROT 7.2 g/dl (6.4-8.2)
[2018-11-14] MEDS ORDERED: FUROSEMIDE 40 MG/4 ML INJECTABLE VIAL IVPUSH ONE ×2 (18:24→20:25)
[2018-11-14] MEDS ORDERED: FUROSEMIDE 40 MG/4 ML INJECTABLE VIAL ONE ×2 (18:36→20:28)
[2018-11-14 19:35] LABS: PH,URINE 6.5 (5.0-8.0); URINE APPEARANCE CLEAR; URINE BILIRUBIN NEGATIVE (NEGATIVE); URINE COLOR YELLOW; URINE GLUCOSE (UA) NEGATIVE (NEGATIVE); URINE KETONE NEGATIVE (NEGATIVE); URINE LEUK ESTERASE NEGATIVE (NEGATIVE); URINE NITRITE NEGATIVE (NEGATIVE); URINE PROTEIN NEGATIVE (NEGATIVE); URINE UROBILINOGEN 0.2 mg/dL (0.2-1.0)
[2018-11-14] MEDS ORDERED: hydrALAZINE HCL 20 MG/ML VIAL IVPUSH ONE ×2 (20:29→23:43)
--- NOTE | 2018-11-14 20:32 | HP ---
CHIEF COMPLAINT: dyspnea on exertion PCP: cardio dr anaya; pcp. noah HISTORY OF PRESENT ILLNESS: 53 y/o male with PMH of afib (on xarelto) HTN HLD CHF presented to the ED with complaints of dyspnea on exertion and chest pressure- of note, patient was here 1 month ago with a very similar presentation, where he had an echocardiogram at that time which was showed a normal EF with moderate inferioapical hypokinesis and some of his medication were uptitrated at that time., he was supposed to be going for an ablation on saturday ( with dr duvall at [facility] in [place]) however due to his high BP it was cancelled and he was started on amlodipine. Today he went to his PCP where his BP was elevated in the 200's and he was sent here. In regards to his dyspnea he states that his exercise tolerance has decreased he is now making multiple stops in between to places he didnt need to make stops to before and today he found it very hard to catch his breath and form sentences so he came here, he denies any LE swelling no cough or fever ER course was notable for: (1)BP on arrival 203/131 (2)BNP 1223; trop 0.03-->0.05 (3)given 40 IV lasix, 10mg hydralazine (4) CXR done ? effusion final read pending; head CT negative Recent Travel: denies PAST MEDICAL HISTORY: see letha PAST SURGICAL HISTORY: cholecystectomy Social History: Smoking:smokes 1.5 cigarettes/day (has cut way back) Alcohol:social Drugs: denies Family History:mother passed from lung ca;' father HTN and emphsyema and lung ca Allergies No Known Allergies Allergy (Verified 11/14/18 16:20) HOME MEDICATIONS: Home Medications Medication Instructions Recorded Rivaroxaban [Xarelto -] 20 mg PO DAILY 10/03/18 Atorvastatin Ca [Lipitor] 10 mg PO HS #30 tablet 10/06/18 Metoprolol Succinate [Toprol XL -] 50 mg PO DAILY #30 tab.sr.24h 10/06/18 Valsartan [Diovan] 160 mg PO DAILY #30 tablet 10/06/18 Amlodipine Besylate 5 mg PO DAILY 11/14/18 REVIEW OF SYSTEMS CONSTITUTIONAL: Absent: fever, chills, diaphoresis, generalized weakness, malaise, loss of appetite, weight change HEENT: Absent: rhinorrhea, nasal congestion, throat pain, throat swelling, difficulty swallowing, mouth swelling, ear pain, eye pain, visual changes CARDIOVASCULAR: Present: chest pain Absent: , syncope, palpitations, irregular heart rate, lightheadedness, peripheral edema RESPIRATORY: Present: shortness of breath, dyspnea on exertion Absent: cough,, orthopnea, wheezing, stridor, hemoptysis GASTROINTESTINAL: Absent: abdominal pain, abdominal distension, nausea, vomiting, diarrhea, constipation, melena, hematochezia GENITOURINARY: Absent: dysuria, frequency, urgency, hesitancy, hematuria, flank pain, genital pain MUSCULOSKELETAL: Absent: myalgia, arthralgia, joint swelling, back pain, neck pain SKIN: Absent: rash, itching, pallor HEMATOLOGIC/IMMUNOLOGIC: Absent: easy bleeding, easy bruising, lymphadenopathy, frequent infections ENDOCRINE: Absent: unexplained weight gain, unexplained weight loss, heat intolerance, cold intolerance NEUROLOGIC: Absent: headache, focal weakness or paresthesias, dizziness, unsteady gait, seizure, mental status changes, bladder or bowel incontinence PSYCHIATRIC: Absent: anxiety, depression, suicidal or homicidal ideation, hallucinations. PHYSICAL EXAMINATION Vital Signs - 24 hr 11/14/18 11/14/18 11/14/18 16:16 16:20 17:00 Temperature 97.7 F 98.0 F Pulse Rate 74 Pulse Rate [ 66 Apical] Respiratory 20 18 Rate Blood Pressure 210/134 H Blood Pressure 176/122 H [Right Arm] O2 Sat by Pulse 98 100 98 Oximetry (%) 11/14/18 11/14/18 18:21 19:05 Temperature 97.5 F L Pulse Rate Pulse Rate [ 68 67 Apical] Respiratory 18 Rate Blood Pressure Blood Pressure 184/131 H 203/131 H [Right Arm] O2 Sat by Pulse 100 99 Oximetry (%) GENERAL: Awake, alert, and fully oriented, in slight acute acute distress.. EYES: PEERLA: EOMI; no scleral icterus NECK: no JVD; no lymphadenopathy LUNGS: CTA B/L; no rales, rhonchi or wheezing . HEART: Regular rate and rhythm, normal S1 and S2 without murmur, rub or gallop. ABDOMEN: Soft, nontender, not distended, normoactive bowel sounds, no guarding, no rebound, no masses. No hepatomegaly or splenomegaly. MUSCULOSKELETAL: Normal range of motion at all joints. No bony deformities or tenderness. No CVA tenderness. EXTRMITIES: warm; well-perfused no clubbing/cyanosis or edema . PSYCHIATRIC: Cooperative. Good eye contact. Appropriate mood and affect. SKIN: Warm, dry, normal turgor, no rashes or lesions noted, normal capillary refill. Laboratory Results - last 24 hr 11/14/18 11/14/18 11/14/18 16:39 16:39 16:39 WBC 7.5 RBC 4.27 Hgb 14.2 Hct 40.6 MCV 95.0 MCH 33.3 MCHC 35.0 RDW 13.8 Plt Count 275 D MPV 8.9 Absolute Neuts (auto) 5.3 Neutrophils % 70.3 Lymphocytes % 18.1 D Monocytes % 8.0 Eosinophils % 2.6 Basophils % 1.0 Nucleated RBC % 0 PT with INR INR Sodium 141 Potassium 4.5 Chloride 107 Carbon Dioxide 26 Anion Gap 7 L BUN 20.0 H Creatinine 1.1 Est GFR (CKD-EPI)AfAm 87.74 Est GFR (CKD-EPI)NonAf 75.70 Random Glucose 87 Calcium 9.1 Magnesium 2.1 Total Bilirubin 0.4 AST 27 ALT 34 Alkaline Phosphatase 88 Creatine Kinase 87 Troponin I 0.03 B-Natriuretic Peptide 1223.3 H Total Protein 7.2 Albumin 3.7 Urine Color Urine Appearance Urine pH Ur Specific [place] Urine Protein Urine Glucose (UA) Urine Ketones Urine Blood Urine Nitrite Urine Bilirubin Urine Urobilinogen Ur Leukocyte Esterase Blood Type Antibody Screen 11/14/18 11/14/18 11/14/18 16:39 16:39 19:10 WBC RBC Hgb Hct MCV MCH MCHC RDW Plt Count MPV Absolute Neuts (auto) Neutrophils % Lymphocytes % Monocytes % Eosinophils % Basophils % Nucleated RBC % PT with INR 13.90 H INR 1.18 H Sodium Potassium Chloride Carbon Dioxide Anion Gap BUN Creatinine Est GFR (CKD-EPI)AfAm Est GFR (CKD-EPI)NonAf Random Glucose Calcium Magnesium Total Bilirubin AST ALT Alkaline Phosphatase Creatine Kinase Troponin I B-Natriuretic Peptide Total Protein Albumin Urine Color Yellow Urine Appearance Clear Urine pH 6.5 Ur Specific [place] 1.009 L Urine Protein Negative Urine Glucose (UA) Negative Urine Ketones Negative Urine Blood Negative Urine Nitrite Negative Urine Bilirubin Negative Urine Urobilinogen 0.2 Ur Leukocyte Esterase Negative Blood Type Cancelled Antibody Screen Cancelled ASSESSMENT/PLAN: 53 y/o male with PMH of afib (on xarelto) HTN HLD CHF presented to the ED with complaints of dyspnea on exertion and chest pressure with elevated BP on arrival #Hypertensive Urgency trend troponins; 0.03-->0.05 given 10 push of hydralazine (x3) TSH ordered Dr. Anaya consulted c/w valsartan 100, toprol 50XL, amlodipine 5 #CHF patients BNP 1223 echo done last month showing moderate inferoapical hypokinesis IV lasix 40 daily I's and O's daily weights cardio consulted #Afib on Xarelto #HLD c/w statin F/E/N not on fluids monitor electrolytes sodium-controlled diet dvt ppx: xarelto Problem List - Problem (1) Chest pain Code(s): R07.9 - CHEST PAIN, UNSPECIFIED Qualifiers: Chest pain type: unspecified Qualified Code(s): R07.9 - Chest pain, unspecified (2) Hypertensive urgency Code(s): I16.0 - HYPERTENSIVE URGENCY (3) HTN (hypertension) Code(s): I10 - ESSENTIAL (PRIMARY) HYPERTENSION Qualifiers: Hypertension type: essential hypertension Qualified Code(s): I10 - Essential (primary) hypertension (4) Hyperlipidemia Code(s): E78.5 - HYPERLIPIDEMIA, UNSPECIFIED Qualifiers: Hyperlipidemia type: pure hypercholesterolemia Qualified Code(s): E78.00 - Pure hypercholesterolemia, unspecified; E78.0 - Pure hypercholesterolemia Visit type - Emergency Visit Emergency Visit: Yes ED Registration Date: 11/14/18 Care time: The patient presented to the Emergency Department on the above date and was hospitalized for further evaluation of their emergent condition. - New Patient This patient is new to me today: Yes Date on this admission: 11/15/18 - Critical Care Critical Care patient: No ATTENDING PHYSICIAN STATEMENT I saw and evaluated the patient. I reviewed the resident's note and discussed the case with the resident. I agree with the resident's findings and plan as documented. SUBJECTIVE: OBJECTIVE: ASSESSMENT AND PLAN:
[2018-11-14] MEDS ORDERED: hydrALAZINE HCL 20 MG/ML VIAL ONE (21:15)
[2018-11-14] MEDS ORDERED: ATORVASTATIN CA 10 MG TABLET (FP) PO SCH (22:00)
[2018-11-14] MEDS ORDERED: ATORVASTATIN CA 10 MG TABLET (FP) ONE (23:07)
[2018-11-14] MEDS ORDERED: ACETAMINOPHEN 325 MG TABLET (FP) PO PRN (23:16)
[2018-11-14] MEDS ORDERED: ACETAMINOPHEN 325 MG TABLET (FP) ONE (23:26)
[2018-11-15] MEDS ORDERED: hydrALAZINE HCL 20 MG/ML VIAL ONE ×2 (00:08→01:39)
[2018-11-15] MEDS ORDERED: hydrALAZINE HCL 20 MG/ML VIAL IVPUSH ONE (00:31)
--- NOTE | 2018-11-15 04:38 | PN ---
Teaching Attending Note Name of Resident: Estela Mckeon ATTENDING PHYSICIAN STATEMENT I saw and evaluated the patient. I reviewed the resident's note and discussed the case with the resident. I agree with the resident's findings and plan as documented. Seen and examined, please refer to resident note for further historical information. Briefly, this is a 53 y/o male with a PMH as documented presenting for chest pressure and dyspnea; he is noted to be hypertensive and was sent here from clinic with SBP >200s. 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 CT head negative in ER. Given 30mg total IV hydralazine and had improvement of sx. Endorses medication compliance. Current Medications Generic Name Dose Route Start Last Admin Trade Name Freq PRN Reason Stop Dose Admin Acetaminophen 650 mg 11/14/18 23:16 11/14/18 23:40 Tylenol - PO 650 mg Q6H PRN Administration Fever Or Pain Amlodipine Besylate 10 mg 11/15/18 10:00 Norvasc - PO DAILY AARON Atorvastatin Calcium 10 mg 11/14/18 22:00 11/14/18 23:05 Lipitor - PO 10 mg HS AARON Administration Metoprolol Succinate 50 mg 11/15/18 10:00 Toprol Xl - PO DAILY AARON Rivaroxaban 20 mg 11/15/18 10:00 Xarelto PO DAILY AARON Valsartan 160 mg 11/15/18 10:00 Diovan - PO DAILY AARON VS, labs, imaging reviewed NAD, AAO, resting in bed RRR s1/2 Lungs CTAB, w/ sym exp NT ND +BS EKG reviewed Telemetry reviewed ASSESSMENT AND PLAN: Patient presents with SOB and HTN emergency likely; elevated BNP but less than last time with near equivelant renal function. Doing well off O2; EKGs compared to prior studies. Consulting CV, titrating amlodipine to 10 from 5, and monitoring on telemetry. # SOB May be 2/2 HTN; work to control pressure. Echo reviewed # HTN EvU -Trend trops, monitor for improvement of symptoms with resolution of HTN. Increase amlo to 10, continue with diovan and MS50. # WEAVER -Neg CT, no red flag signs. Monitor # AF RVR -Monitor HR on tele; continue home NOAC Full Code
[2018-11-15 07:29] LABS: HEMATOCRIT 43.5 % (35.4-49); HEMOGLOBIN 15.3 GM/dL (11.7-16.9); MCH 32.6 pg (25.7-33.7); MCHC 35.2 g/dl (32.0-35.9); MEAN CELL VOLUME 92.8 fl (80-96); MEAN PLT VOLUME 7.6 fl (7.5-11.1); PLATELET COUNT 257 K/MM3 (134-434); RBC 4.69 M/mm3 (4.00-5.60); RDW 13.6 % (11.9-15.9); WHITE BLOOD COUNT 6.3 K/mm3 (4.0-10.0)
[2018-11-15 07:31] LABS: ALBUMIN 3.9 g/dl (3.4-5.0); BILIRUBIN,TOTAL 0.8 mg/dL (0.2-1); BLOOD UREA NITROGEN 19.6 mg/dL (7-18); CALCIUM 9.2 mg/dL (8.5-10.1); CREATININE 1.2 mg/dL (0.55-1.3); POTASSIUM 3.5 mmol/L (3.5-5.1); TOT PROT 7.5 g/dl (6.4-8.2)
[2018-11-15] MEDS ORDERED: ACETAMINOPHEN 325 MG TABLET (FP) ONE (09:08)
[2018-11-15] MEDS ORDERED: amLODIPine BESYLATE 5 MG TABLET (FP) ONE (09:08)
[2018-11-15] MEDS ORDERED: VALSARTAN 80 MG TABLET (UD) ONE (09:09)
[2018-11-15] MEDS ORDERED: VALSARTAN 160 MG TABLET (UD) PO SCH ×2 (10:00→22:00)
[2018-11-15] MEDS ORDERED: amLODIPine BESYLATE 5 MG TABLET (FP) PO SCH (10:00)
[2018-11-15] MEDS ORDERED: amLODIPine BESYLATE 10 MG TABLET (FP) PO SCH (10:00)
--- NOTE | 2018-11-15 13:57 | PN ---
Progress Note (short form) - Note Progress Note: currently asymptomatic. was able to ambulate with minimal difficulty. denies Cp , SOB, fever,c hills, N/V/C/D was to go for ablation last week but was cancelled due to HTN Current Medications Generic Name Dose Route Start Last Admin Trade Name Freq PRN Reason Stop Dose Admin Acetaminophen 650 mg 11/14/18 23:16 11/14/18 23:40 Tylenol - PO 650 mg Q6H PRN Administration Fever Or Pain Amlodipine Besylate 10 mg 11/15/18 10:00 11/15/18 09:14 Norvasc - PO 10 mg DAILY AARON Administration Atorvastatin Calcium 10 mg 11/14/18 22:00 11/14/18 23:05 Lipitor - PO 10 mg HS AARON Administration Metoprolol Succinate 50 mg 11/15/18 10:00 11/15/18 09:14 Toprol Xl - PO 50 mg DAILY AARON Administration Rivaroxaban 20 mg 11/15/18 18:00 Xarelto PO DAILY@1800 AARON Valsartan 160 mg 11/15/18 10:00 11/15/18 09:14 Diovan - PO 160 mg DAILY AARON Administration Last Vital Signs Temp Pulse Resp BP Pulse Ox 98 F 76 18 149/99 98 11/15/18 05:30 11/15/18 09:00 11/15/18 05:30 11/15/18 09:00 11/15/18 09:00 General mildly anxious CV S1 S2 irregular Lungs CTA B/l no wheezing/rales/rhonchi Abdomen soft NT/Nd Extremiteis no pedal edema CBCD WBC 6.3 K/mm3 (4.0-10.0) 11/15/18 06:00 RBC 4.69 M/mm3 (4.00-5.60) 11/15/18 06:00 Hgb 15.3 GM/dL (11.7-16.9) 11/15/18 06:00 Hct 43.5 % (35.4-49) 11/15/18 06:00 MCV 92.8 fl (80-96) 11/15/18 06:00 MCHC 35.2 g/dl (32.0-35.9) 11/15/18 06:00 RDW 13.6 % (11.9-15.9) 11/15/18 06:00 Plt Count 257 K/MM3 (134-434) 11/15/18 06:00 MPV 7.6 fl (7.5-11.1) D 11/15/18 06:00 CMP Sodium 139 mmol/L (136-145) 11/15/18 06:00 Potassium 3.5 mmol/L (3.5-5.1) 11/15/18 06:00 Chloride 102 mmol/L (98-107) 11/15/18 06:00 Carbon Dioxide 28 mmol/L (21-32) 11/15/18 06:00 Anion Gap 9 MMOL/L (8-16) 11/15/18 06:00 BUN 19.6 mg/dL (7-18) H 11/15/18 06:00 Creatinine 1.2 mg/dL (0.55-1.3) 11/15/18 06:00 Calcium 9.2 mg/dL (8.5-10.1) 11/15/18 06:00 Total Bilirubin 0.8 mg/dL (0.2-1) 11/15/18 06:00 AST 27 U/L (15-37) 11/15/18 06:00 ALT 35 U/L (13-61) 11/15/18 06:00 Alkaline Phosphatase 98 U/L (45-117) 11/15/18 06:00 Total Protein 7.5 g/dl (6.4-8.2) 11/15/18 06:00 Albumin 3.9 g/dl (3.4-5.0) 11/15/18 06:00 53yo M with PMH afib on xarelto, HTN, dyslipidemia presented to the ER with sudden onset of SOB assoc with CP and found to have HTN urgency with BP 203/131 and elevated troponins. 1. HTN urgency-claims he has been compliant but has labile BP. re-started home meds with good response. might benefit from 3rd agent to optimize control. will await cardio recommendations. 2. SOB- due to HTN urgency. now resolved with BP controlled. 3. Tropinemia- peak Trop 0.04. likely demand in setting HTN urgency. no more CP. plan for cardiac cath as outpatient with cardiac CT per patient 4. Afib on xarelto-Rate controlled. planned for ablation after cardiac cath which he is scheduled for once his BP is optimize. 5. dyslipidemia-statin 6. DVT ppx- xarelto 7. can likely d/.c home today pending cardio eval Visit type - Emergency Visit Emergency Visit: Yes ED Registration Date: 11/14/18 Care time: The patient presented to the Emergency Department on the above date and was hospitalized for further evaluation of their emergent condition. - New Patient This patient is new to me today: Yes Date on this admission: 11/15/18 - Critical Care Critical Care patient: No - Discharge Referral Referred to [facility] Med P.C.: No
--- NOTE | 2018-11-15 14:46 | PN ---
Progress Note (short form) - Note Progress Note: Chief Complaint: Events noted, notes reviewed, presentation with chest discomfort and increasing dyspnea in context of hypertensive urgency, currently denies any recurrent chest discomfort, EKG and cardiac biochemical markers noted History of Present Illness: Seen and examined in the ER as telemetry hold. Full consult dictated Medications: Current Medications Acetaminophen (Tylenol -) 650 mg PO Q6H PRN PRN Reason: Fever Or Pain Last Admin: 11/14/18 23:40 Dose: 650 mg Amlodipine Besylate (Norvasc -) 10 mg PO DAILY [facility] Last Admin: 11/15/18 09:14 Dose: 10 mg Atorvastatin Calcium (Lipitor -) 10 mg PO HS [facility] Last Admin: 11/14/18 23:05 Dose: 10 mg Metoprolol Succinate (Toprol Xl -) 50 mg PO DAILY [facility] Last Admin: 11/15/18 09:14 Dose: 50 mg Rivaroxaban (Xarelto) 20 mg PO DAILY@1800 [facility] Valsartan (Diovan -) 160 mg PO DAILY [facility] Last Admin: 11/15/18 09:14 Dose: 160 mg Review of Systems Constitutional: denies: Chills or Fever Cardiovascular: as noted above Respiratory: denies: Cough Gastrointestinal: denies: Nausea, Vomiting, Diarrhea, Constipation or Abdominal Pain Genitourinary: denies: Dysuria Musculoskeletal: denies: Joint Pain Neurological: denies: Dizziness or Headache Vital Signs: Last Vital Signs Temp Pulse Resp BP Pulse Ox 98.1 F 71 18 128/88 99 11/15/18 13:57 11/15/18 13:57 11/15/18 13:57 11/15/18 13:57 11/15/18 13:57 Intake & Output 11/12/18 11/13/18 11/14/18 11/15/18 23:59 23:59 23:59 23:59 Weight 187 lb 8 oz Constitutional: No Distress, Calm, Thin Respiratory: Clear to A&P Cardiovascular: S1 S2 Regular Rate and Rhythm Gastrointestinal: Soft Benign Normal Bowel Sounds Ext: No Edema Labs: Troponin, BNP 11/14/18 11/14/18 11/15/18 16:39 19:55 02:00 Troponin I 0.03 0.05 0.03 B-Natriuretic Peptide 1223.3 H CBC, BMP 11/15/18 06:00 11/15/18 06:00 Hepatic Panel Total Bilirubin 0.8 mg/dL (0.2-1) 11/15/18 06:00 AST 27 U/L (15-37) 11/15/18 06:00 ALT 35 U/L (13-61) 11/15/18 06:00 Alkaline Phosphatase 98 U/L (45-117) 11/15/18 06:00 Albumin 3.9 g/dl (3.4-5.0) 11/15/18 06:00 INR, PTT INR 1.18 (0.83-1.09) H 11/14/18 16:39 Assessment/Plan ASSESSMENT: 1. Chest pain syndrome and exertional dyspnea in context of hypertensive urgency 2. 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 Diastolic/systolic LV dysfunction with clinical class 0-I NYHA classification LV failure, clinically compensated elevated BNP related to probable the above noted hypertensive urgency 4. Paroxysmal atrial flutter [id number] score of 3 on A/C post RFA- at [facility] recent recurrent arrhythmia most likely related medical therapy administration non compliance 5. HTN, labile blood pressure- hypertensive urgency 6. Hypercholesterolemia PLAN: 1. Continue Toprol XL at 50 mg daily 2. Continue Norvasc at 5 mg daily 3. Continue Diovan but increase to 160 mg twice daily 4. Continue Lipitor 5. Continue Xarelto 6. Can be D/C home from the cardiovascular point of view and F/U with Dr. Akbar Frederick later this week/already scheduled Jenelle Ellison M.D.
[2018-11-15 15:39] VITALS: BP 134/82; PULSE 67; TEMP 97.9
--- NOTE | 2018-11-15 15:48 | EKG ---
Test Reason : Blood Pressure : / mmHG Vent. Rate : 071 BPM Atrial Rate : 071 BPM P-R Int : 268 ms QRS Dur : 144 ms QT Int : 470 ms P-R-T Axes : 025 -23 -04 degrees QTc Int : 510 ms SINUS RHYTHM WITH 1ST DEGREE A-V BLOCK RIGHT BUNDLE BRANCH BLOCK ABNORMAL ECG WHEN COMPARED WITH ECG OF 14-NOV-2018 17:10, QT HAS LENGTHENED CLINICAL CORRELATION IS RECOMMENDED Confirmed by SHIRLEY NEVES, ADRIA ([id number]) on 11/15/2018 3:48:08 PM Referred By: Confirmed By:ADRIA WATSON MD
--- NOTE | 2018-11-15 16:03 | EKG ---
Test Reason : Blood Pressure : / mmHG Vent. Rate : 064 BPM Atrial Rate : 064 BPM P-R Int : 344 ms QRS Dur : 142 ms QT Int : 424 ms P-R-T Axes : 054 024 006 degrees QTc Int : 437 ms SINUS RHYTHM WITH 1ST DEGREE A-V BLOCK RIGHT BUNDLE BRANCH BLOCK ABNORMAL ECG WHEN COMPARED WITH ECG OF 31-MAR-2017 21:35, SINUS RHYTHM HAS REPLACED ATRIAL FLUTTER QT HAS LENGTHENED CLINICAL CORRELATION IS RECOMMENDED Confirmed by ADRIA WATSON MD ([id number]) on 11/15/2018 4:02:33 PM Referred By: Confirmed By:ADRIA WATSON MD
--- NOTE | 2018-11-15 16:52 | CONS ---
DATE OF CONSULTATION: 11/15/2018 CONSULTATION REQUESTED BY: Hospitalist CHIEF COMPLAINT: Chest discomfort, dyspnea, evaluation of cardiovascular status. HISTORY OF PRESENT ILLNESS: The patient is known to our service. He is a patient of Dr. Akbar Frederick. The patient is a 53-year-old male with a known history of coronary artery disease, wall motion abnormality on echocardiography, angina pectoris, diastolic/systolic left ventricular dysfunction with clinical class 0 to 1 [place] [employer] classification ventricular failure, paroxysmal atrial flutter, CHADS-VASc score of 3 on chronic anticoagulation therapy, history of radiofrequency ablation two to three years ago at [facility], hypertensive cardiovascular disease and hypercholesterolemia. He presented to [facility] with complaints of vague left-sided chest discomfort and progressive exertional dyspnea. He was noted to have a significantly elevated blood pressure measurement. He was treated medically with clinical resolution of the above-noted symptomatology. Chest discomfort was described as heaviness noted at rest and on occasion with physical activity. The patient reported dyspnea with mild to moderate physical exertion. The patient denied any orthopnea, paroxysmal nocturnal dyspnea or peripheral edema. The patient denied any palpitations, dizziness, lightheadedness or syncope. The patient reported fatigue and tiredness. The patient stated that he was non-compliant with medical therapy administration a few months ago. PAST MEDICAL HISTORY: Coronary artery disease, wall motion abnormality on echocardiography, angina pectoris, systolic/diastolic left ventricular dysfunction with clinical class 0 to 1 [place] [employer] classification ventricular failure, paroxysmal atrial flutter, CHADS-VASc score of 3 on chronic anticoagulation therapy, history of radiofrequency ablation two to three years ago at [facility], hypertensive cardiovascular disease, hypercholesterolemia. SOCIAL HISTORY: Prior smoker. FAMILY HISTORY: Positive for coronary artery disease. ALLERGIES: None reported. MEDICAL THERAPY AT HOME: Norvasc 5 mg once daily, initiated recently, Diovan 160 mg once a day, Toprol XL 50 mg once a day, Xarelto 20 mg once a day, Lipitor 10 mg once daily. REVIEW OF SYSTEMS: Head and Neck: Denies headache, photophobia, blurring of vision. Respiratory: No cough or sputum production. Cardiovascular: As noted above. Gastrointestinal: Denied nausea, vomiting, diarrhea, abdominal discomfort. Genitourinary: No symptoms reported. PHYSICAL EXAMINATION: Vitals: Blood pressure is 128/88 mmHg, pulse rate is 71 beats per minute. Head and Neck: Pupils are equal, round and reactive to light and accommodation. Extraocular muscles intact. Anicteric sclerae. Negative JVD. No bruits appreciated. Chest: Clear to auscultation and percussion. Cardiovascular: S1, S2 regular. No murmurs, appreciated. No clicks or gallops. Abdomen: Soft, benign. Normal active bowel sounds. Extremities: Negative for edema. Intact distal pulses. No calf tenderness. ELECTROCARDIOGRAM: Sinus rhythm, first-degree AV block with complete right breast biopsy block. CBC: A CBC reveals white cell count 6.3, hemoglobin 15.3, platelets 257. His basic metabolic profile revealed sodium 139, potassium 3.5, BUN 19.6, creatinine 1.2, glucose 97, INR 1.18. ASSESSMENT: 1. Chest pain syndrome and exertional dyspnea in the context of hypertensive urgency. 2. Coronary artery disease; wall motion abnormality on echocardiography; angina pectoris. 3. Diastolic/systolic left ventricular dysfunction with clinical class 0 to 1 [place] Heart [employer] classification ventricular failure, clinically compensated. Elevated BNP probably related to the above-noted hypertensive urgency. 4. Paroxysmal atrial flutter, CHADS-VASc score of 3 on anticoagulation therapy, post radiofrequency ablation at [facility], recent recurrent arrhythmia most likely related to medical therapy administration noncompliance. 5. Hypertensive cardiovascular disease, labile blood pressure with hypertensive urgency. 6. Hypercholesterolemia. RECOMMENDATIONS: 1. Continuation of Toprol XL at 50 mg once daily. 2. Continuation of Norvasc at 5 mg once daily. 3. Continuation of Diovan but increasing dosage to 160 mg twice daily. 4. Continuation of Lipitor. 5. Continuation of Xarelto. 6. The patient can be discharged home from the cardiovascular point of view and follow up with Dr. Akbar Frederick later this week. Appointment already scheduled. Of note, the patient was supposed to proceed with a radiofrequency ablation procedure under the care of Dr. Marcelino Jimenez at [facility] but the procedure was deferred in view of elevated blood pressure measurement. Thank you for the kind referral. ADRIA WATSON M.D. [id number]
[2018-11-15] MEDS ORDERED: RIVAROXABAN 20 MG TABLET PO SCH (18:00)
== END 2018-11-15 15:15 | disposition home or self-care (01) | DRG 199 ==
LOC: JER 16:10 → JERBED 20:00
PROVIDERS: ADMIT Internal Medicine; ATTEND Internal Medicine
DX: I16.0 Hypertensive urgency (principal); I48.91 Unspecified atrial fibrillation; E78.5 Hyperlipidemia, unspecified; F17.210 Nicotine dependence, cigarettes, uncomplicated; R07.89 Other chest pain; I48.92 Unspecified atrial flutter; I11.0 Hypertensive heart disease with heart failure; I25.119 Atherosclerotic heart disease of native coronary artery with unspecified angina pectoris; I50.1 Left ventricular failure, unspecified
CPT/HCPCS: 36415; 70450-TC; 71045-TC-FY; 80053; 81003; 82550; 83735; 83880; 84484; 85025; 85027; 85610; 87086; 93005; 93010; 99285-25

== ENCOUNTER 2018-12-28 21:42 | Emergency (ER) | payer OTHER ==
[2018-12-28 21:59] VITALS: TEMP 98.1; BMI 25.5
--- NOTE | 2018-12-28 22:02 | PDOC ---
History of Present Illness - General Chief Complaint: Chest Pain Stated Complaint: SOB/DIZZY Time Seen by Provider: 12/28/18 22:01 History Source: Patient Exam Limitations: No Limitations - History of Present Illness Initial Comments: 12/28/18 22:49 José Wolf is a 53yM w PMHx HTN, HLD, a fib on anticoagulation presenting w chest pain. Sudden onset sharp L midclavicular pain started at 9:30pm today. Pt also states that he cannot breathe. Had similar chest pain in past. Had a few drinks today, current smoker. Denies fever, nausea/vomiting, AB pain, urinary/ bowel movement changes. Patient was admitted this September for similar episode and had a chest CTA that was negative for any pulmonary emboli He also had an echo that showed moderate inferior apical hypokinesis, remaining gonzales were globally mildly hypokinetic, LV ejection fraction was 50%, mild MR, TR, AR In ED, at 11p after evaluated and given multiple pain medication, started complaining of searing frontal headache. Past History - Past Medical History Allergies/Adverse Reactions: Allergies Allergy/AdvReac Type Severity Reaction Status Date / Time No Known Allergies Allergy Verified 11/14/18 16:20 Home Medications: Ambulatory Orders Rivaroxaban [Xarelto -] 20 mg PO DAILY 10/03/18 Atorvastatin Ca [Lipitor] 10 mg PO HS #30 tablet 10/06/18 Metoprolol Succinate [Toprol XL -] 50 mg PO DAILY #30 tab.sr.24h 10/06/18 Amlodipine Besylate 5 mg PO DAILY 11/14/18 Valsartan [Diovan] 160 mg PO BID #60 tablet 11/15/18 Anemia: No Asthma: No Cancer: No Cardiac Disorders: Yes (afib, cardioversion) CVA: No COPD: No CHF: Yes Dementia: No Diabetes: No GI Disorders: No Disorders: No HTN: Yes Hypercholesterolemia: Yes Liver Disease: No Seizures: No Thyroid Disease: No - Surgical History Abdominal Surgery: Yes (hernia repair, gallbladder removal) Appendectomy: No Cardiac Surgery: No Cholecystectomy: Yes Lung Surgery: No Neurologic Surgery: No Orthopedic Surgery: Yes ((L)GREAT TOE TENDONS REMOVED) - Psycho Social/Smoking Cessation Hx Smoking Status: Yes Smoking History: Current every day smoker Have you smoked in the past 12 months: Yes Number of Cigarettes Smoked Daily: 3 Information on smoking cessation initiated: No 'Breaking Loose' booklet given: 04/01/17 Hx Alcohol Use: Yes (daily) Drug/Substance Use Hx: Yes Substance Use Type: None, Marijuana Hx Substance Use Treatment: No Cardiac Specific PMH - Complaint Specific PMHX Pacemaker: No Review of Systems - Review of Systems Constitutional: No: Chills, Fever HEENTM: No: Eye Pain, Recent change in vision, Nose Pain, Throat Pain, Mouth Pain Respiratory: Yes: Shortness of Breath. No: Cough Cardiac (ROS): Yes: Chest Pain. No: Palpitations, Syncope ABD/GI: No: Abdominal Distended, Constipated, Diarrhea, Nausea, Vomiting : No: Burning, Dysuria, Discharge, Frequency, Flank Pain Musculoskeletal: No: Back Pain, Joint Pain, Joint Swelling, Muscle Pain Integumentary: No: Bruising, Dryness, Erythema Neurological: Yes: Headache. No: Numbness, Paresthesia, Seizure, Tingling, Tremors Psychiatric: No: Anxiety, Depression Endocrine: No: Excessive Sweating, Flushing, Intolerance to Cold, Intolerance to Heat Hematologic/Lymphatic: No: Anemia, Blood Clots *Physical Exam - Vital Signs Last Vital Signs Temp Pulse Resp BP Pulse Ox 98.1 F 55 L 16 105/79 100 12/28/18 21:57 12/29/18 00:02 12/29/18 00:02 12/29/18 00:02 12/29/18 00:02 - Physical Exam General Appearance: Yes: Nourished, Appropriately Dressed, Severe Distress ( agitated, rolling around in bed clutching chest and head) HEENT: positive: EOMI, KD, Normal Voice, Hearing Grossly Normal. negative: Scleral Icterus (R), Scleral Icterus (L), Nasal Congestion, Rhinorrhea Respiratory/Chest: positive: Lungs Clear, Normal Breath Sounds, Rapid RR. negative: Chest Tender, Crackles, Rales, Rhonchi, Stridor, Wheezing Cardiovascular: positive: Regular Rhythm, S1, S2, Tachycardia. negative: Edema , Murmur Musculoskeletal: negative: CVA Tenderness (R), CVA Tenderness (L) Integumentary: positive: Other (flushed) Neurologic: positive: Fully Oriented, Alert, Normal Response, Responsive. negative: Normal Mood/Affect (angry), Numbness, Confused, Disoriented Heart Score/ECG Review - History History: Slightly suspicious - Electrocardiogram EKG: Normal - Age Age: 45-65 - Risk Factors Risk Factors Heart Score: Yes Hx Hypercholesterolemia, Yes Hx Hypertension, Yes Smoking History Based on the list above the patient has:: >/=3 risk factors or Hx atherosclerotic disease - Troponin Troponin: </= normal limit - Score Heart Score - Total: 3 ED Treatment Course - LABORATORY CBC & Chemistry Diagram: 12/28/18 22:30 12/28/18 22:30 - ADDITIONAL ORDERS Additional order review: Laboratory Results 12/28/18 12/28/18 12/28/18 22:30 22:30 22:30 PT with INR 15.20 H INR 1.28 H Sodium 135 L Potassium 4.6 Chloride 100 Carbon Dioxide 25 Anion Gap 11 BUN 14.5 Creatinine 1.2 Est GFR (CKD-EPI)AfAm 78.98 Est GFR (CKD-EPI)NonAf 68.14 Random Glucose 83 Calcium 8.7 Magnesium 2.1 Total Bilirubin 0.9 AST 34 ALT 29 Alkaline Phosphatase 92 Creatine Kinase 108 Troponin I 0.03 B-Natriuretic Peptide 495.2 H Total Protein 7.3 Albumin 3.6 Alcohol, Quantitative 177.2 H 12/28/18 22:30 RBC 4.90 MCV 93.1 MCHC 34.4 RDW 13.7 MPV 8.0 Neutrophils % 63.0 Lymphocytes % 23.4 D Monocytes % 10.6 H Eosinophils % 2.1 Basophils % 0.9 - Medications Given in the ED: ED Medications Discontinued Medications Generic Name Dose Route Start Last Admin Trade Name Freq PRN Reason Stop Dose Admin Acetaminophen 1,000 mg 12/28/18 22:38 12/28/18 22:56 Ofirmev Injection - IVPB 12/28/18 22:39 1,000 mg ONCE ONE Administration Aspirin 162 mg 12/28/18 22:21 12/28/18 22:25 Asa - PO 12/28/18 22:22 162 mg ONCE ONE Administration Aspirin 324 mg 12/28/18 22:24 12/28/18 22:32 Asa - PO 12/28/18 22:25 Not Given ONCE ONE Aspirin 162 mg 12/28/18 22:28 12/28/18 22:33 Asa - PO 12/28/18 22:29 162 mg ONCE ONE Administration Aspirin 162 mg 12/28/18 22:29 12/28/18 23:36 Asa - PO 12/28/18 22:30 Not Given ONCE ONE Diphenhydramine HCl 25 mg 12/28/18 23:41 12/28/18 23:48 Benadryl Injection - IVPUSH 12/28/18 23:42 25 mg ONCE ONE Administration Oxycodone/Acetaminophen 1 combo 12/28/18 23:18 12/28/18 23:20 Percocet 5/325 - PO 12/28/18 23:19 1 combo ONCE STA Administration Medical Decision Making - Critical Care Time Total Critical Care Time (minutes): 30 Critical Care Statement: The care of this patient involved high complexity decision making to prevent further life threatening deterioration of the patient 's condition and/or to evaluate & treat vital organ system(s) failure or risk of failure. - Medical Decision Making 12/28/18 22:50 CBC CMP trop alcohol EKG CXR Given 324 aspirin, 1 percocet, 50 benadryl, tylenol Placed on 15L NC and non rebreather for O2sat 80, 15 min later pt ripped off non rebreather and NC with normalized O2 sats on RA Pt asking for morphine drip Chest pain self resolved, pt started complaining of searing headache. 1st EKG not read d/t pt agitation. Ordered 2nd EKG CXR clear lungs trop 0.03, normal CBC/CMP --- José Wolf is a 53yM w PMHx HTN, HLD, a fib on anticoagulation presenting w chest pain, respiratory distress, and headache likely d/t panic attack vs malingering vs drug abuse (complaining of dyspnea with normal O2 sats, constantly asking for IV morphine). Lower concern for ACS (negative trop) and intracranial hemorrhage (not hypertensive). No evidence of lung infection on CXR. Vitals wnl. Given 324 aspirin, 1 percocet, 50 benadryl, tylenol without pain relief. -pending EKG, reassess after reglan given -consider head CT rule out ICH if pt agrees to stay still Dispo pt admit to tele/obvs for chest pain (HEART score 3) to rule out WA vs pt leaving AMA d/t pt reporting insufficient pain relief Signed out to night team Discharge - Discharge Information Problems reviewed: Yes Clinical Impression/Diagnosis: Chest pain Qualifiers: Chest pain type: unspecified Qualified Code(s): R07.9 - Chest pain, unspecified Headache Qualifiers: Headache type: unspecified Headache chronicity pattern: acute headache Intractability: intractable Qualified Code(s): R51 - Headache Condition: Stable - Follow up/Referral - Patient Discharge Instructions - Post Discharge Activity
[2018-12-28] MEDS ORDERED: ASPIRIN 81 MG CHEWABLE TABLETS PO ONE ×4 (22:21→22:29)
[2018-12-28] MEDS ORDERED: ASPIRIN 81 MG CHEWABLE TABLETS ONE ×2 (22:25→22:29)
--- NOTE | 2018-12-28 22:33 | PDOC ---
Attending Attestation - Resident Resident Name: Sahara,David - ED Attending Attestation I have performed the following: I have examined & evaluated the patient, The case was reviewed & discussed with the resident, I agree w/resident's findings & plan, Exceptions are as noted - HPI HPI: 12/28/18 22:31 53-year-old male brought in by ambulance after having chest pain that started 40 minutes prior to arrival. He feels that he cannot breathe. He states that he has had chest pain in the past and has had a history of A. fib , hypertension is on anticoagulation and has had a recent echo. - Physicial Exam PE: 12/28/18 22:32 53-year-old male with alcohol on breath complaining that there is something sitting on his chest and great distress Head normocephalic atraumatic Neck is supple Lungs breath sounds in all lung blackmon CVS bradycardia Abdomen is protuberant nontender extremities no pitting edema neuro alert and oriented x3 psych very anxious - Medical Decision Making 12/28/18 22:34 53-year-old male past medical history of A. fib on anticoagulation, hypertension , hyperlipidemia presented to [facility] with shortness of breath and severe chest pain and pressure. Patient was admitted this September for similar episode and had a chest CTA that was negative for any pulmonary emboli He also had an echo that showed moderate inferior apical hypokinesis, remaining gonzales were globally mildly hypokinetic, LV ejection fraction was 50%, mild MR, TR, AR 12/28/18 23:19 pt needs TELEMETRY admission
[2018-12-28] MEDS ORDERED: ACETAMINOPHEN 1000 MG/100 ML VIAL (NON FORMULARY) IVPB ONE (22:38)
[2018-12-28 22:49] LABS: BASO % 0.9 % (0-2.0); EOS % 2.1 % (0-4.5); HEMATOCRIT 45.6 % (35.4-49); HEMOGLOBIN 15.7 GM/dL (11.7-16.9); LYMPH % 23.4 % (8-40); MCHC 34.4 g/dl (32.0-35.9); MEAN CELL VOLUME 93.1 fl (80-96); MONO % 10.6 % (3.8-10.2); PLATELET COUNT 255 K/MM3 (134-434); RDW 13.7 % (11.9-15.9); WHITE BLOOD COUNT 8.1 K/mm3 (4.0-10.0)
[2018-12-28] MEDS ORDERED: ACETAMINOPHEN INJECTION 100 ML IVPB ONE (22:49)
[2018-12-28 23:14] LABS: INR 1.28 (0.83-1.09); PROTHROMBIN TIME (PATIENT) 15.2 SEC (9.7-13.0)
[2018-12-28 23:22] LABS: BLOOD UREA NITROGEN 14.5 mg/dL (7-18); CREATININE 1.2 mg/dL (0.55-1.3); POTASSIUM 4.6 mmol/L (3.5-5.1)
[2018-12-28 23:23] LABS: ALBUMIN 3.6 g/dl (3.4-5.0); BILIRUBIN,TOTAL 0.9 mg/dL (0.2-1); CALCIUM 8.7 mg/dL (8.5-10.1); MAGNESIUM 2.1 mg/dL (1.8-2.4); TOT PROT 7.3 g/dl (6.4-8.2)
[2018-12-29 00:01] LABS: N-TERMINAL BNP 495.2 pg/ml (5-125)
[2018-12-29 00:04] VITALS: BP 105/79; PULSE 55
[2018-12-29] MEDS ORDERED: METOCLOPRAMIDE HCL INJECTION 10 MG/2 ML VIAL IVPB ONE (00:16)
--- NOTE | 2018-12-29 00:22 | PDOC ---
*Physical Exam - Vital Signs Last Vital Signs Temp Pulse Resp BP Pulse Ox 98.1 F 55 L 16 105/79 100 12/28/18 21:57 12/29/18 00:02 12/29/18 00:02 12/29/18 00:02 12/29/18 00:02 ED Treatment Course - LABORATORY CBC & Chemistry Diagram: 12/28/18 22:30 12/28/18 22:30 - ADDITIONAL ORDERS Additional order review: Laboratory Results 12/28/18 12/28/18 12/28/18 22:30 22:30 22:30 PT with INR 15.20 H INR 1.28 H Sodium 135 L Potassium 4.6 Chloride 100 Carbon Dioxide 25 Anion Gap 11 BUN 14.5 Creatinine 1.2 Est GFR (CKD-EPI)AfAm 78.98 Est GFR (CKD-EPI)NonAf 68.14 Random Glucose 83 Calcium 8.7 Magnesium 2.1 Total Bilirubin 0.9 AST 34 ALT 29 Alkaline Phosphatase 92 Creatine Kinase 108 Troponin I 0.03 B-Natriuretic Peptide 495.2 H Total Protein 7.3 Albumin 3.6 Alcohol, Quantitative 177.2 H 12/28/18 22:30 RBC 4.90 MCV 93.1 MCHC 34.4 RDW 13.7 MPV 8.0 Neutrophils % 63.0 Lymphocytes % 23.4 D Monocytes % 10.6 H Eosinophils % 2.1 Basophils % 0.9 - Medications Given in the ED: ED Medications Discontinued Medications Generic Name Dose Route Start Last Admin Trade Name Jailene PRN Reason Stop Dose Admin Acetaminophen 1,000 mg 12/28/18 22:38 12/28/18 22:56 Ofirmev Injection - IVPB 12/28/18 22:39 1,000 mg ONCE ONE Administration Aspirin 162 mg 12/28/18 22:21 12/28/18 22:25 Asa - PO 12/28/18 22:22 162 mg ONCE ONE Administration Aspirin 324 mg 12/28/18 22:24 12/28/18 22:32 Asa - PO 12/28/18 22:25 Not Given ONCE ONE Aspirin 162 mg 12/28/18 22:28 12/28/18 22:33 Asa - PO 12/28/18 22:29 162 mg ONCE ONE Administration Aspirin 162 mg 12/28/18 22:29 12/28/18 23:36 Asa - PO 12/28/18 22:30 Not Given ONCE ONE Diphenhydramine HCl 25 mg 12/28/18 23:41 12/28/18 23:48 Benadryl Injection - IVPUSH 12/28/18 23:42 25 mg ONCE ONE Administration Oxycodone/Acetaminophen 1 combo 12/28/18 23:18 12/28/18 23:20 Percocet 5/325 - PO 12/28/18 23:19 1 combo ONCE STA Administration Medical Decision Making - Medical Decision Making 12/29/18 12:45 Received sign out from Dr Shoemaker. 53yoM hx of HTN, HLD, afib on anticoagulation presenting w chest pain, respiratory distress, and headache per Dr Shoemaker likely d/t panic attack vs malingering vs drug abuse (complaining of dyspnea with normal O2 sats, constantly asking for IV morphine). Lower concern for ACS (negative trop) and intracranial hemorrhage (not hypertensive). No evidence of lung infection on CXR. Vitals wnl. Given 324 aspirin, 1 percocet, 50 benadryl, tylenol without pain relief. Chest pain resolved and pt started to complain of headache. Pt offered Reglan and informed of decision to admit to tele/obs for chest pain (HEART 3) for ACS r /o and pt threatened to leave AMA, but did not sign form. Need repeat EKG due to poor quality of first EKG. Consider CTH for headache. Pt seen and assessed at bedside. 12/29/18 01:45 Pt removed from ED by security for disruptive and abusive behaviours per Dr Mann 's order. Discharge - Discharge Information Problems reviewed: Yes Clinical Impression/Diagnosis: Chest pain Qualifiers: Chest pain type: unspecified Qualified Code(s): R07.9 - Chest pain, unspecified Headache Qualifiers: Headache type: unspecified Headache chronicity pattern: acute headache Intractability: intractable Qualified Code(s): R51 - Headache Condition: Stable Disposition: AGAINST MEDICAL ADVICE - Admission No - Follow up/Referral - Patient Discharge Instructions Patient Printed Discharge Instructions: DI for Atypical Chest Pain Additional Instructions: You have been seen in the Emergency Department for chest pain and headache. Your presentation is concerning for emergent conditions such as a heart attack. We would like to admit you to the hospital, do more tests and treatment, and have cardiology and neurology assess you. We have discussed this with you but you want to leave against medical advice prior to proper evaluation, diagnosis, and treatment. You have been advised of the risks and benefits of leaving against medical advice. You have been advised that should you change your mind you are welcome to return to this hospital, or any other, at any time. You understand that in no way does an AMA discharge mean that I do not want you to have the best medical care available. Return to the ED immediately if you experience chest pain, difficulty breathing , dizziness, or any other new or worsening symptom. - Post Discharge Activity
[2018-12-29] MEDS ORDERED: METOCLOPRAMIDE HCL INJECTION 10 MG/2 ML VIAL IM ONE (01:04)
[2018-12-29] MEDS ORDERED: METOCLOPRAMIDE HCL INJECTION 10 MG/2 ML VIAL ONE (01:22)
--- NOTE | 2018-12-29 10:18 | EKG ---
Test Reason : Blood Pressure : / mmHG Vent. Rate : 044 BPM Atrial Rate : 050 BPM P-R Int : 000 ms QRS Dur : 108 ms QT Int : 430 ms P-R-T Axes : 000 048 240 degrees QTc Int : 367 ms SINUS BRADYCARDIA WITH 1ST DEGREE AV BLOCL AND PERIODS OF JUCTIONAL BRADYCARDIA BASELINE ARTIFACT ABNORMAL ECG WHEN COMPARED WITH ECG OF 15-NOV-2018 00:48, JUNCTIONAL RHYTHM IS SEEN VENT. RATE HAS DECREASED BY 27 BPM RIGHT BUNDLE BRANCH BLOCK IS NO LONGER PRESENT Confirmed by ALEJANDRO CHIRINOS MD ([id number]) on 12/29/2018 10:18:06 AM Referred By: Confirmed By:ALEJANDRO CHIRINOS MD
== END 2018-12-29 | disposition left against medical advice (07) ==
LOC: JER 21:42
PROC: 3E033NZ Introduction of Analgesics, Hypnotics, Sedatives into Peripheral Vein, Percutaneous Approach (ICD-10-PCS; principal; 2018-12-28)
PROC: 3E033GC Introduction of Other Therapeutic Substance into Peripheral Vein, Percutaneous Approach (ICD-10-PCS; 2018-12-28)
PROC: 3E023GC Introduction of Other Therapeutic Substance into Muscle, Percutaneous Approach (ICD-10-PCS; 2018-12-28)
PROC: 3E023GC Introduction of Other Therapeutic Substance into Muscle, Percutaneous Approach (ICD-10-PCS; 2018-12-28)
DX: R07.9 Chest pain, unspecified (principal); R51 Headache; I10 Essential (primary) hypertension; E78.00 Pure hypercholesterolemia, unspecified; I48.91 Unspecified atrial fibrillation; Z79.01 Long term (current) use of anticoagulants
CPT/HCPCS: 36415; 71045-TC-FY; 80053; 80307; 82550; 83735; 83880; 84484; 85025; 85610; 93005; 93010; 96372; 96374; 96375; 99284-25; J0131

== ENCOUNTER 2019-02-02 08:12 | Emergency (ER) | payer OTHER ==
[2019-02-02 08:25] VITALS: BP 130/86; PULSE 97; TEMP 98.1; BMI 28.0
[2019-02-02] MEDS ORDERED: GABAPENTIN 300 MG CAPSULE (FP) PO ONE (08:33)
[2019-02-02] MEDS ORDERED: GABAPENTIN 100 MG CAPSULE (FP) ONE (08:38)
--- NOTE | 2019-02-02 08:42 | PDOC ---
History of Present Illness - General Chief Complaint: Pain, Acute Stated Complaint: BOTH ARMS WEAKNES Time Seen by Provider: 02/02/19 08:27 History Source: Patient Exam Limitations: Clinical Condition - History of Present Illness Initial Comments: 02/02/19 08:38 Patient with past medical history of A. fib on Xarelto, hypertension and CHF on amlodipine and Toprol and hyperlipidemia presented with complaint of a one- month history of weakness to bilateral upper extremities with tingling sensation in bilateral hands. Patient reported now starting to have swelling to radial aspect of left forearm without any trauma or injury. Patient is being followed up by orthopedics who referred him for an appointment for MRI today which patient came to the ED after doing the MRI for evaluation. Patient have MRI of left upper extremity 2 weeks ago and referred for MRI right upper extremity today due to suspicion for impingement nerve orthopedics. Patient reported weakness in bilateral arms when trying to lift up heavy objects. Denies chest pain, shortness of breath, palpitations, dizziness. Patient reports taking Aleve for pain with minimal improvement Is this a multiple visit Asthma Patient?: No Past History - Past Medical History Allergies/Adverse Reactions: Allergies Allergy/AdvReac Type Severity Reaction Status Date / Time No Known Allergies Allergy Verified 02/02/19 08:24 Home Medications: Ambulatory Orders Rivaroxaban [Xarelto -] 20 mg PO DAILY 10/03/18 Atorvastatin Ca [Lipitor] 10 mg PO HS #30 tablet 10/06/18 Metoprolol Succinate [Toprol XL -] 50 mg PO DAILY #30 tab.sr.24h 10/06/18 Amlodipine Besylate 5 mg PO DAILY 11/14/18 Valsartan [Diovan] 160 mg PO BID #60 tablet 11/15/18 Gabapentin [Neurontin] 300 mg PO BID PRN #20 capsule 02/02/19 Methocarbamol [Robaxin -] 500 mg PO TID #21 tablet 02/02/19 Anemia: No Asthma: No Cancer: No Cardiac Disorders: Yes (afib, cardioversion) CVA: No COPD: No CHF: Yes Dementia: No Diabetes: No GI Disorders: No Disorders: No HTN: Yes Hypercholesterolemia: Yes Liver Disease: No Seizures: No Thyroid Disease: No - Surgical History Abdominal Surgery: Yes (hernia repair, gallbladder removal) Appendectomy: No Cardiac Surgery: No Cholecystectomy: Yes Lung Surgery: No Neurologic Surgery: No Orthopedic Surgery: Yes ((L)GREAT TOE TENDONS REMOVED) - Psycho Social/Smoking Cessation Hx Smoking Status: Yes Smoking History: Former smoker Have you smoked in the past 12 months: No Number of Cigarettes Smoked Daily: 3 If you are a former smoker, when did you quit?: 30 DAYS AGO Information on smoking cessation initiated: No 'Breaking Loose' booklet given: 04/01/17 Hx Alcohol Use: Yes ("LIGHT") Drug/Substance Use Hx: No Substance Use Type: None, Marijuana Hx Substance Use Treatment: No Review of Systems - Review of Systems Able to Perform ROS?: Yes Is the patient limited Maltese proficient: No Constitutional: No: Chills, Fever, Malaise HEENTM: No: Symptoms Reported Respiratory: No: Symptoms reported, See HPI, Cough, Orthopnea, Shortness of Breath, SOB with Exertion, SOB at Rest, Stridor, Wheezing, Productive cough, Hemoptysis, Other Cardiac (ROS): No: Symptoms Reported, See HPI, Chest Pain, Edema, Irregular Heart Rate, Lightheadedness, Palpitations, Syncope, Chest Tightness, Other ABD/GI: No: Nausea, Vomiting Musculoskeletal: Yes: Symptoms Reported, See HPI, Joint Swelling (left forearm) , Muscle Pain (left forearm and wrist on radial side), Muscle Weakness (b/l upper extremities) Integumentary: Yes: Symptoms Reported, See HPI, Other (swelling to radial aspect of b/l forearm). No: Bruising, Change in Color Neurological: Yes: Symptoms reported, See HPI, Numbness, Tingling, Weakness. No : Paresthesia All Other Systems: Reviewed and Negative *Physical Exam - Vital Signs Last Vital Signs Temp Pulse Resp BP Pulse Ox 98.1 F 97 H 16 130/86 98 02/02/19 08:20 02/02/19 08:20 02/02/19 08:20 02/02/19 08:20 02/02/19 08:20 - Physical Exam Comments: 02/02/19 08:44 GENERAL: Well developed, well nourished. Awake and alert. No acute distress. PULMONARY: No evidence of respiratory distress. MUSCULOSKELETAL : mild tenderness over radial aspect of bilateral forearms. No tenderness to elbow olecranon bilateral. No tenderness to radial aspect of bilateral forearm. 4/5 muscle strength to b/l UE. No bony deformities SKIN: Warm and dry. Normal capillary refill. Mild swelling along the radial aspect of left distal forearm and wrist. No bruising or ecchymosis. NEUROLOGICAL: Alert, awake, appropriate. No motor deficits in the lower extremities. Gait is normal without ataxia. PSYCHIATRIC: Cooperative. Good eye contact. Appropriate mood and affect. General Appearance: Yes: Nourished, Appropriately Dressed. No: Apparent Distress ED Treatment Course - RADIOLOGY Radiology Studies Ordered: Category Date Time Status FOREARM- LEFT [RAD] Stat Radiology 02/02/19 08:32 Ordered WRIST- RIGHT [RAD] Stat Radiology 02/02/19 08:32 Ordered Medical Decision Making - Medical Decision Making 02/02/19 08:41 Patient with past medical history of A. fib on Xarelto, hypertension and CHF on amlodipine and Toprol and hyperlipidemia presented with complaint of a one- month history of weakness to bilateral upper extremities with tingling sensation in bilateral hands. Patient reported now starting to have swelling to radial aspect of left forearm without any trauma or injury. Patient is being followed up by orthopedics in has an appointment for MRI today which patient came to the ED after doing the MRI for evaluation. Patient have MRI of left upper extremity 2 weeks ago and referred for MRI right upper extremity today due to suspicion for impingement nerve orthopedics. Patient reported weakness in bilateral arms when trying to lift up heavy objects. Denies chest pain, shortness of breath, palpitations, dizziness. Patient reports taking Aleve for pain with minimal improvement Exam significant for mild swelling around radial aspect of distal left forearm and wrist with no visible deformity. Mild subjective tenderness to radial dorsal aspect of bilateral forearms. No visible swelling to right forearm or wrist. 4 out of 5 strength to bilateral upper extremity. Symptoms likely nerve impingement with swelling to left forearm from nerve inflammation versus less likely trauma. MRI of bilateral extremity already done, patient will be referred for x-ray of left forearm and wrist to rule out acute pathology. Gabapentin 300 mg p.o. ordered for nerve pain 02/02/19 09:14 X-ray of left forearm and wrist shows no acute pathology. Patient symptoms likely caused by neuralgia with neuritis. Left forearm wrapped with Rock bandage. Gabapentin 300 mg p.o. given by nurse. Patient stable for discharge to follow-up back with orthopedics for MRI results and follow-up management Discharge - Discharge Information Problems reviewed: Yes Clinical Impression/Diagnosis: Bilateral arm pain, Neuralgia and neuritis Condition: Stable Disposition: HOME - Admission No - Additional Discharge Information Prescriptions: Gabapentin [Neurontin] 300 mg PO BID PRN #20 capsule PRN Reason: nerve pain Methocarbamol [Robaxin -] 500 mg PO TID #21 tablet - Follow up/Referral Referrals: Merrill Neely DO [Staff Physician] - - Patient Discharge Instructions Patient Printed Discharge Instructions: DI for Neuralgia Additional Instructions: Your x-ray shows no acute fracture or pathology. Your symptoms likely caused by nerve pain. Follow-up with your orthopedics as instructed to discuss your MRI results and follow-up treatment. Take prescribed medication as needed for nerve pain. - Post Discharge Activity
== END 2019-02-02 09:05 | disposition home or self-care (01) ==
LOC: JERFT 08:12
DX: M79.2 Neuralgia and neuritis, unspecified (principal); I11.0 Hypertensive heart disease with heart failure; I50.9 Heart failure, unspecified; I48.91 Unspecified atrial fibrillation; Z79.01 Long term (current) use of anticoagulants; E78.5 Hyperlipidemia, unspecified
CPT/HCPCS: 73090-TC-LT-FY; 73110-TC-RT-FY; 99281-25

== ENCOUNTER 2019-03-04 10:59 | Observation (INO) | payer OTHER ==
[2019-03-04 11:12] VITALS: BP 115/90; PULSE 71; TEMP 97.8; BMI 28.3
--- NOTE | 2019-03-04 11:17 | CON.CARD ---
Consult Consult Specialty:: Cardiology Referred by:: Emergency Medicine Reason for Consultation:: Newly diagnosed RBBB - History of Present Illness Chief Complaint: Dyspnea History of Present Illness: José Wolf is a 54yM with aflutter h/o RFA 04/17/[address] José Lauren [facility] , HTN, HLD, current smoker, fam h/o CAD presenting with chest discomfort, dyspnea on exertion, orthopnea, near syncope w/o palpitations, true syncope, PND or LE edema, bilateral frontal headache. He reports medication compliance, still adds salt to diet. Found to have new RBBB. - History Source History Provided By: Patient Limitations to Obtaining History: No Limitations - Past Medical History Cardio/Vascular: Yes: CHF, HTN, Murmur, Other Gastrointestinal: Yes: Diverticulosis Hepatobiliary: Yes: Cholelithiasis (cholecystectomy planned for 04/09/17) Renal/: Yes: BPH Musculoskeletal: Yes: Chronic low back pain (L4-5 disc issues (no chronic meds now)) - Past Surgical History Past Surgical History: Yes: Hernia Repair (right inguinal with mesh). 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 Home Medications - Allergies Allergies/Adverse Reactions: Allergies Allergy/AdvReac Type Severity Reaction Status Date / Time No Known Allergies Allergy Verified 02/02/19 08:24 - Home Medications Home Medications: Ambulatory Orders Atorvastatin Ca [Lipitor] 10 mg PO HS #30 tablet 10/06/18 Metoprolol Succinate [Toprol XL -] 50 mg PO DAILY #30 tab.sr.24h 10/06/18 Amlodipine Besylate 5 mg PO DAILY 11/14/18 Valsartan [Diovan] 160 mg PO BID #60 tablet 11/15/18 Apixaban [Eliquis] 5 mg PO BID 03/04/19 Furosemide [Lasix] 40 mg PO DAILY 03/04/19 Gabapentin [Neurontin] 300 mg PO QID PRN 03/04/19 Review of Systems - Review of Systems Respiratory: reports: Exercise Intolerance, Orthopnea, SOB, SOB on Exertion Vital Signs: Vital Signs Temperature 97.8 F 03/04/19 11:08 Pulse Rate 71 03/04/19 11:08 Respiratory Rate 20 03/04/19 11:08 Blood Pressure 115/90 03/04/19 11:08 O2 Sat by Pulse Oximetry (%) 98 03/04/19 11:08 Constitutional: Yes: No Distress, Calm Neck: Yes: Supple Respiratory: Yes: Regular, CTA Bilaterally Gastrointestinal: Yes: Normal Bowel Sounds, Soft Cardiovascular: Yes: Regular Rate and Rhythm JVD: No Carotid Bruit: No Heart Sounds: Yes: S1, S2 Edema: No - Other Data NSR @ 68 1st deg AVB RBBB new from previous Ejection Fraction %: LVEF > or = 40 % Imaging - Results Chest X-ray: Pending Problem List - Problems (1) Anticoagulant long-term use Code(s): Z79.01 - ORTHOPHOTO TECH/DRAFTSMAN (CURRENT) USE OF ANTICOAGULANTS (2) Atrial flutter Code(s): I48.92 - UNSPECIFIED ATRIAL FLUTTER Qualifiers: Atrial flutter type: atypical Qualified Code(s): I48.4 - Atypical atrial flutter (3) HTN (hypertension) Code(s): I10 - ESSENTIAL (PRIMARY) HYPERTENSION Qualifiers: Hypertension type: essential hypertension Qualified Code(s): I10 - Essential (primary) hypertension (4) Hyperlipidemia Code(s): E78.5 - HYPERLIPIDEMIA, UNSPECIFIED Qualifiers: Hyperlipidemia type: pure hypercholesterolemia Qualified Code(s): E78.00 - Pure hypercholesterolemia, unspecified; E78.0 - Pure hypercholesterolemia Assessment/Plan 10/03/2018 Echo: Mod inferoapical HK, borderline decreased LVEF 50%m mod LAE, mild MR, TR, AR 03/14/2017 Echo: Rhythm is aflutter, mild dilated LV with mild-mod cLVH mod decreased LVEF 35-40% severe inferoapical HK, mod LAE, normal RV size with mild decreased RV fxn, tr TR RVSP 40-45 mmHg 03/15/2017 Lexiscan Myoview: No ischemia or scra, dilated LV with mod-severe decreased LV fxn LVEF 36% 1. Chest pain, dyspnea and orthopnea referable to acute diastolic heart failure 2. CAD with RWMA on echocardiography angina pectoris 3. Paroxysmal aflutter s/p RF ablation by José Quijano at [facility] 3. Newly diagnosed RBBB 4. Hypertension with h/o urgency and encephelopathy 5. Hyperlipidemia 6. Current smoker 7. Cervical radiculopathy P: 1. Continue Toprol XL 50 qd, Diovan 160 qd qd, Lipitor 10 qhs, Norvasc 5 qd, Xarelto 20 qd, Lasix 20 qd with uptitration as hemodynamics tolerate 2. Emphasized importance of medication and diet compliance, NSAID avoidance, abstinence from smoking 3. F/u as outpatient with Dr. Frederick 03/13/2019 4. Thank you for consultative opportunity
[2019-03-04 11:54] LABS: BASO % 0.8 % (0-2.0); EOS % 3.9 % (0-4.5); HEMATOCRIT 43.7 % (35.4-49); HEMOGLOBIN 15.3 GM/dL (11.7-16.9); MCHC 35.1 g/dl (32.0-35.9); MEAN PLT VOLUME 7.6 fl (7.5-11.1); NEUT % 68.3 % (42.8-82.8); PLATELET COUNT 271 K/MM3 (134-434); RBC 4.65 M/mm3 (4.00-5.60); RDW 14.4 % (11.9-15.9); WHITE BLOOD COUNT 5.9 K/mm3 (4.0-10.0)
[2019-03-04 11:58] LABS: INR 1.08 (0.83-1.09); PROTHROMBIN TIME (PATIENT) 12.8 SEC (9.7-13.0)
[2019-03-04 12:01] LABS: ACTIVATED PTT 37.5 SECONDS (25.2-36.5)
[2019-03-04 12:21] LABS: ALBUMIN 3.7 g/dl (3.4-5.0); ALK PHOS 98 U/L (45-117); ANION GAP 5 MMOL/L (8-16); BILIRUBIN,TOTAL 0.4 mg/dL (0.2-1); BLOOD UREA NITROGEN 28.7 mg/dL (7-18); CALCIUM 8.8 mg/dL (8.5-10.1); CHLORIDE 98 mmol/L (98-107); CO2 30 mmol/L (21-32); CREATININE 1.9 mg/dL (0.55-1.3); GLUCOSE,RANDOM 94 mg/dL (74-106); MAGNESIUM 2.3 mg/dL (1.8-2.4); N-TERMINAL BNP 142.1 pg/ml (5-125); POTASSIUM 4.7 mmol/L (3.5-5.1); SGOT/AST 29 U/L (15-37); SGPT/ALT 43 U/L (13-61); SODIUM 134 mmol/L (136-145); TOT PROT 7.4 g/dl (6.4-8.2)
--- NOTE | 2019-03-04 14:23 | PDOC ---
Documentation entered by Michelle Valencia SCRIBE, acting as scribe for Haley Yeboah MD. Haley Yeboah MD: This documentation has been prepared by the Erik galloway Nirvannie, SCRIBE, under my direction and personally reviewed by me in its entirety. I confirm that the documentation accurately reflects all work, treatment, procedures, and medical decision making performed by me. History of Present Illness - General Stated Complaint: Shortness of Breath History Source: Patient Exam Limitations: No Limitations - History of Present Illness Initial Comments: 03/04/19 13:38 The patient is a 54 year old male, with a significant past medical history of HTN, HLD, Afib(on Xarelto), and CHF, who presents to the emergency department with, dyspnea upon exertion and orthopnea. He notes associated episodes of chest pain with associated nausea and dizziness for approximately a year. As per patient, his symptoms have been ongoing for an extended period of time but, today he was in his PCPs office when he experienced an episode prompting her to perform an EKG which depicted a new right bundle branch block. He denies any recent fevers, chills,or headache. He denies any recent vomiting, diarrhea or constipation. He denies any recent dysuria, frequency, urgency or hematuria. Allergies: [facility] Primary Care Physician: Dr. Parson Past History - Past Medical History Allergies/Adverse Reactions: Allergies Allergy/AdvReac Type Severity Reaction Status Date / Time No Known Allergies Allergy Verified 02/02/19 08:24 Home Medications: Ambulatory Orders Atorvastatin Ca [Lipitor] 10 mg PO HS #30 tablet 10/06/18 Metoprolol Succinate [Toprol XL -] 50 mg PO DAILY #30 tab.sr.24h 10/06/18 Amlodipine Besylate 5 mg PO DAILY 11/14/18 Valsartan [Diovan] 160 mg PO BID #60 tablet 11/15/18 Apixaban [Eliquis] 5 mg PO BID 03/04/19 Furosemide [Lasix] 40 mg PO DAILY 03/04/19 Gabapentin [Neurontin] 300 mg PO QID PRN 03/04/19 Anemia: No Asthma: No Cancer: No Cardiac Disorders: Yes (afib, cardioversion) CVA: No COPD: No CHF: Yes Dementia: No Diabetes: No GI Disorders: No Disorders: No HTN: Yes Hypercholesterolemia: Yes Liver Disease: No Seizures: No Thyroid Disease: No - Surgical History Abdominal Surgery: Yes (hernia repair, gallbladder removal) Appendectomy: No Cardiac Surgery: No Cholecystectomy: Yes Lung Surgery: No Neurologic Surgery: No Orthopedic Surgery: Yes ((L)GREAT TOE TENDONS REMOVED) - Psycho Social/Smoking Cessation Hx Smoking Status: Yes Smoking History: Former smoker Have you smoked in the past 12 months: No Number of Cigarettes Smoked Daily: 3 If you are a former smoker, when did you quit?: 30 DAYS AGO 'Breaking Loose' booklet given: 04/01/17 Hx Alcohol Use: Yes ("LIGHT") Drug/Substance Use Hx: No Substance Use Type: None, Marijuana Hx Substance Use Treatment: No Review of Systems - Review of Systems Able to Perform ROS?: Yes Comments:: 03/04/19 13:39 CONSTITUTIONAL: No fever, no chills, no fatigue EYES: No visual changes ENT: No ear pain, no sore throat CARDIOVASCULAR: +Chest pain. +SOB. No palpitations RESPIRATORY: No cough GI: +Nausea. No abdominal pain, no vomiting, no constipation, no diarrhea GENITOURINARY: No dysuria, no frequency, no hematuria MUSKULOSKELETAL: No back pain, no joint pain, no myalgias SKIN: No rash NEURO: +Dizziness. No headache All Other Systems: Reviewed and Negative *Physical Exam - Vital Signs Last Vital Signs Temp Pulse Resp BP Pulse Ox 97.8 F 71 20 115/90 98 03/04/19 11:08 03/04/19 11:08 03/04/19 11:08 03/04/19 11:08 03/04/19 11:08 - Physical Exam 03/04/19 14:41 GENERAL: The patient is in no acute distress. HEAD: Normal with no signs of trauma. EYES: PERRLA, EOMI, sclera anicteric, conjunctiva clear. ENT: Ears normal, nares patent, oropharynx clear without exudates. Moist mucous membranes. NECK: Normal range of motion, supple without lymphadenopathy, JVD, or masses. LUNGS: Breath sounds equal, clear to auscultation bilaterally. No wheezes, and no crackles. HEART:Regular rate and rhythm, normal S1 and S2 without murmur, rub or gallop. ABDOMEN: Soft, nontender, normoactive bowel sounds. No guarding, no rebound. No masses palpable. EXTREMITIES: +Chronic arthritic shoulder pain. Normal range of motion, no edema. No clubbing or cyanosis. No erythema, or tenderness. NEUROLOGICAL: Cranial nerves II through XII grossly intact. Normal speech. No focal neurological deficits. MUSCULOSKELETAL: Back non-tender to palpation, no CVA tenderness SKIN: Warm, Dry, normal turgor, no rashes or lesions noted. ED Treatment Course - LABORATORY CBC & Chemistry Diagram: 03/04/19 11:30 03/04/19 11:30 - ADDITIONAL ORDERS Additional order review: Laboratory Results 03/04/19 03/04/19 12 11:30 11:30 11:30 WBC 5.9 RBC 4.65 Hgb 15.3 Hct 43.7 MCV 94.0 MCH 33.0 MCHC 35.1 RDW 14.4 Plt Count 271 MPV 7.6 Absolute Neuts (auto) 4.1 Neutrophils % 68.3 Lymphocytes % 13.0 D Monocytes % 14.0 H Eosinophils % 3.9 D Basophils % 0.8 Nucleated RBC % 0 PT with INR 12.80 INR 1.08 PTT (Actin FS) 37.5 H Sodium 134 L Potassium 4.7 Chloride 98 Carbon Dioxide 30 Anion Gap 5 L BUN 28.7 H Creatinine 1.9 H Est GFR (CKD-EPI)AfAm 45.00 Est GFR (CKD-EPI)NonAf 38.82 Random Glucose 94 Calcium 8.8 Magnesium 2.3 Total Bilirubin 0.4 AST 29 ALT 43 Alkaline Phosphatase 98 Creatine Kinase 66 Troponin I < 0.02 B-Natriuretic Peptide 142.1 H Total Protein 7.4 Albumin 3.7 03/04/19 11:30 RBC 4.65 MCV 94.0 MCHC 35.1 RDW 14.4 MPV 7.6 Neutrophils % 68.3 Lymphocytes % 13.0 D Monocytes % 14.0 H Eosinophils % 3.9 D Basophils % 0.8 - RADIOLOGY Radiology Studies Ordered: Category Date Time Status CHEST X-RAY PORTABLE* [RAD] Stat Radiology 03/04/19 11:11 Completed Medical Decision Making - Medical Decision Making 03/04/19 12:27 Mr. Wolf is a 54 yo M with aflutter h/o RFA 04/17/2017, HTN, HLD, current smoker presenting with episode of dyspnea, shortness of breath, chest discomfort , dyspnea on exertion, orthopnea and dizziness. Pt was in his PMD's office getting blood pressure checked and suddenly had these symptoms An EKG was performed and pt was noted to have a new RBBB Pt sent to the ER after his symptoms improved Pt denies lower extremity edema Pt is compliant with po medications (including lasix 40mg daily) Differential diagnosis includes but is not limited to: ACS, arrhythmia, electrolyte abnormality, congestive heart failure, PE Unlikely PE given Eliquis Will do: Labs EKG Chest x-ray Cardiology consult Observation EKG: Normal sinus rhythm, rate of 68 bpm, intervals are abnormal: First-degree AV block with a MI interval of 270 4ms, QRS widened: 154ms, QTC normal Right bundle branch block which is new from prior, no ST elevations or depressions 03/04/19 12:33 Laboratory Tests 12/28/18 12/28/18 03/04/19 22:30 22:30 11:30 WBC 8.1 Hgb 15.7 Hct 45.6 Plt Count 255 BUN 14.5 28.7 H Creatinine 1.2 1.9 H Creatine Kinase 66 Troponin I < 0.02 B-Natriuretic Peptide 142.1 H 03/04/19 11:30 WBC 5.9 Hgb 15.3 Hct 43.7 Plt Count 271 BUN Creatinine Creatine Kinase Troponin I B-Natriuretic Peptide 03/04/19 12:33 Chest x-ray: No fluid overloading, no infiltrate Patient seen in the ER by cardiology 03/04/19 12:36 Clinical impression: ANDREA, initial presentation Discharge - Discharge Information Problems reviewed: Yes Clinical Impression/Diagnosis: Shortness of breath Chest pain Qualifiers: Chest pain type: unspecified Qualified Code(s): R07.9 - Chest pain, unspecified Condition: Fair - Admission Yes - Follow up/Referral - Patient Discharge Instructions - Post Discharge Activity
[2019-03-04] MEDS ORDERED: SODIUM CHLORIDE 1,000 ML IV SCH (14:30)
[2019-03-04] MEDS ORDERED: GABAPENTIN 300 MG CAPSULE (FP) PO SCH (14:30)
--- NOTE | 2019-03-04 14:42 | HP ---
CHIEF COMPLAINT: shortness of breath; sent by PCP (Dr. Parson) for new RBBB PCP: Dr. Parson Cardio: Dr. Akbar Frederick HISTORY OF PRESENT ILLNESS: 54M w/ pmhx of aflutter/afib (s/p RFA [address] [facility]), HTN/HLD, radiculopathy, hx of alcohol abuse presents in the ED for shortness of breath and chest tightness. States he was at the clinic today when he started experiencing shortness of breath, chest tightness, and a "head govea" while he was putting on his sweater. Says he has gotten these symptoms in the past usually when he bends over to tie his shoelaces. During this episode, an EKG was done in the office concerning for a new RBBB, although pt was HD stable with BP 121/87. As a result, he came to the ED for further eval. During my exam, pt was asymptomatic with no new complaints. States he has chronic dyspnea on exertion, and denied rios/d, f/c, n/v, cp, sob, abd pain, urinary/bowel symptoms. Of note, he was seen in the clinic this past Friday 03/02, was found to have elevated BP at 181/137 after which he was advised to change dosage of Amlodipine and Metoprolol from daily to BID. He also reports increasing his Lasix dose to BID, but per outpatient records. Last blood work done in the clinic showed Cr 1.28. 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 Allergies No Known Allergies Allergy (Verified 02/02/19 08:24) HOME MEDICATIONS: Home Medications Medication Instructions Recorded Atorvastatin Ca [Lipitor] 10 mg PO HS #30 tablet 10/06/18 Metoprolol Succinate [Toprol XL -] 50 mg PO DAILY #30 tab.sr.24h 10/06/18 Amlodipine Besylate 5 mg PO DAILY 11/14/18 Valsartan [Diovan] 160 mg PO BID #60 tablet 11/15/18 Apixaban [Eliquis] 5 mg PO BID 03/04/19 Furosemide [Lasix] 40 mg PO DAILY 03/04/19 Gabapentin [Neurontin] 300 mg PO QID PRN 03/04/19 REVIEW OF SYSTEMS CONSTITUTIONAL: Absent: fever, chills, diaphoresis, generalized weakness, malaise, loss of appetite, weight change HEENT: Absent: rhinorrhea, nasal congestion, throat pain, throat swelling, difficulty swallowing, mouth swelling, ear pain, eye pain, visual changes CARDIOVASCULAR: Absent: chest pain, syncope, palpitations, irregular heart rate, lightheadedness , peripheral edema RESPIRATORY: Absent: cough, shortness of breath, dyspnea with exertion, orthopnea, wheezing, stridor, hemoptysis GASTROINTESTINAL: Absent: abdominal pain, abdominal distension, nausea, vomiting, diarrhea, constipation, melena, hematochezia GENITOURINARY: Absent: dysuria, frequency, urgency, hesitancy, hematuria, flank pain, genital pain MUSCULOSKELETAL: Absent: myalgia, arthralgia, joint swelling, back pain, neck pain SKIN: Absent: rash, itching, pallor HEMATOLOGIC/IMMUNOLOGIC: Absent: easy bleeding, easy bruising, lymphadenopathy, frequent infections ENDOCRINE: Absent: unexplained weight gain, unexplained weight loss, heat intolerance, cold intolerance NEUROLOGIC: Absent: headache, focal weakness or paresthesias, dizziness, unsteady gait, seizure, mental status changes, bladder or bowel incontinence PSYCHIATRIC: Absent: anxiety, depression, suicidal or homicidal ideation, hallucinations. PHYSICAL EXAMINATION Vital Signs - 24 hr 03/04/19 11:08 Temperature 97.8 F Pulse Rate 71 Respiratory 20 Rate Blood Pressure 115/90 O2 Sat by Pulse 98 Oximetry (%) GENERAL: Pleasant, well-appearing male. NAD. AAOx3. HEENT: AT/NC. EOMI. Dry mucus membranes. NECK: Supple, no JVD/LAD. LUNGS: Mild wheezes, no crackles. Symmetric chest rise. Good inspiratory effort. HEART: RRR. Normal S1, S2. No murmurs noted. ABDOMEN: Soft, NT/ND. Normoactive bowel sounds. No rebound tenderness/guarding. MUSCULOSKELETAL: Normal range of motion at all joints. No bony deformities or tenderness. No CVA tenderness. UPPER EXTREMITIES: 2+ pulses, warm, well-perfused. No cyanosis. No clubbing. No peripheral edema. LOWER EXTREMITIES: 2+ pulses, warm, well-perfused. No calf tenderness. No peripheral edema. NEUROLOGICAL: Cranial nerves II-XII intact. Normal speech. Normal gait. SKIN: Warm, dry, normal turgor, no rashes or lesions noted, normal capillary refill. Laboratory Results - last 24 hr 03/04/19 03/04/19 03/04/19 11:30 11:30 11:30 WBC 5.9 RBC 4.65 Hgb 15.3 Hct 43.7 MCV 94.0 MCH 33.0 MCHC 35.1 RDW 14.4 Plt Count 271 MPV 7.6 Absolute Neuts (auto) 4.1 Neutrophils % 68.3 Lymphocytes % 13.0 D Monocytes % 14.0 H Eosinophils % 3.9 D Basophils % 0.8 Nucleated RBC % 0 PT with INR 12.80 INR 1.08 PTT (Actin FS) 37.5 H Sodium 134 L Potassium 4.7 Chloride 98 Carbon Dioxide 30 Anion Gap 5 L BUN 28.7 H Creatinine 1.9 H Est GFR (CKD-EPI)AfAm 45.00 Est GFR (CKD-EPI)NonAf 38.82 Random Glucose 94 Calcium 8.8 Magnesium 2.3 Total Bilirubin 0.4 AST 29 ALT 43 Alkaline Phosphatase 98 Creatine Kinase 66 Troponin I < 0.02 B-Natriuretic Peptide 142.1 H Total Protein 7.4 Albumin 3.7 ASSESSMENT/PLAN: 54M w/ pmhx of aflutter/afib (s/p RFA [address] [facility]), HTN/HLD, radiculopathy, hx of alcohol abuse presents in the ED for shortness of breath and chest tightness. #Shortness of breath; 2/2 ? acute CHF (with preserved EF), however pt looks clinically hypovolemic. May have been taking twice the amount of Lasix as prescribed upon history. Pt also has new RBBB; there may be concern for PE however probably unlikely as patient has been on AC regularly for Afib. Additionally, EKG showed NSR, and pt was satting 98% on RA with no acute signs of respiratory distress. Furthermore, symptoms usually occur positionally, especially when bearing down. -Echo ordered -Cardio consulted; recommends outpatient follow up and continuation of home meds. -CXR neg 10/03/2018 Echo: Mod inferoapical HK, borderline decreased LVEF 50%m mod LAE, mild MR, TR, AR 03/14/2017 Echo: Rhythm is aflutter, mild dilated LV with mild-mod cLVH mod decreased LVEF 35-40% severe inferoapical HK, mod LAE, normal RV size with mild decreased RV fxn, tr TR RVSP 40-45 mmHg 03/15/2017 Lexiscan Myoview: No ischemia or scra, dilated LV with mod-severe decreased LV fxn LVEF 36% #ANDREA; likely prerenal 2/2 increased Lasix dosage, will r/o obstruction -Hold nephrotoxic meds -Renal ultrasound -Repeat BMP (Cr) in AM -NS @ 75 #Hx of Aflutter/Afib; (s/p RFA 2016). Stable. Cont home meds: Eliquis 5 BID, Toprol XL 50 #HTN/HLD; Hold home Lasix, Valsartan, Amlodipine in setting of ANDREA. Cont home med: Toprol XL 50, Lipitor 10 HS #Hx of Radiculopathy; Stable. Cont home med: Gabapentin 300 QID. Follow up with neuro as outpatient. #Prophylaxis DVT: Cont Home med Eliquis 5 BID #FEN -NS @ 75 -recheck lytes in AM (Cr) -Sodium-controlled diet Dispo -admit to tele obs Patient signed out AMA. We discussed in thorough detail the need to follow up with Dr. Parson as an outpatient. Follow up was advised to repeat blood work to check kidney function. Pt was also advised to STOP taking Lasix until kidney function is further evaluated. Pt made aware of all risks upon leaving against medical advice and verbalized understanding. Visit type - Emergency Visit Emergency Visit: Yes ED Registration Date: 03/04/19 Care time: The patient presented to the Emergency Department on the above date and was hospitalized for further evaluation of their emergent condition. - New Patient This patient is new to me today: Yes Date on this admission: 03/04/19 - Critical Care Critical Care patient: No ATTENDING PHYSICIAN STATEMENT I saw and evaluated the patient. I reviewed the resident's note and discussed the case with the resident. I agree with the resident's findings and plan as documented. SUBJECTIVE: OBJECTIVE: ASSESSMENT AND PLAN:
[2019-03-04] MEDS ORDERED: GABAPENTIN 100 MG CAPSULE (FP) ONE (14:52)
--- NOTE | 2019-03-04 15:42 | ECHO ---
Name: CAROLEE FLORES Exam:Adult Echocardiogram Study Date: 03/04/2019 02:12 PM Age: 54 yrs Height: 68 in Weight: 186 lb BSA: 2.0 m2 MMode/2D Measurements & Calculations IVSd: 1.2 cm Ao root diam: 3.4 cm LVIDd: 4.1 cm LA dimension: 4.4 cm LVIDs: 3.1 cm ACS: 2.1 cm LVPWd: 1.3 cm EDV(Teich): 76.0 ml LVOT diam: 1.9 cm ESV(Teich): 37.4 ml Doppler Measurements & Calculations MV E max davion: 41.5 cm/sec Ao V2 max: 127.0 cm/sec MV A max davion: 53.3 cm/sec Ao max P.5 mmHg MV E/A: 0.78 Ao V2 mean: 94.0 cm/sec MV dec time: 0.25 sec Ao mean P.8 mmHg Ao V2 VTI: 22.8 cm DAPHNE(V,D): 1.7 cm2 LV V1 max P.3 mmHg MR max davion: 101.8 cm/sec LV V1 max: 75.0 cm/sec MR max P.1 mmHg TR max davion: 110.4 cm/sec PA V2 max: 66.1 cm/sec TR max P.0 mmHg PA max P.7 mmHg Med Peak E' Davion: 6.4 cm/sec Med E/e': 6.5 Lat Peak E' Davion: 7.3 cm/sec Lat E/e': 5.6 Procedure The study was technically difficult with many images being suboptimal in quality. Left Ventricle The left ventricular size, thickness and function are normal. The left ventricle is not well visualiz ed. The left ventricular ejection fraction is normal. Regional wall motion abnormalities cannot be excluded d ue to limited visualization. Right Ventricle The right ventricle is not well visualized. Atria The left atrium is mildly dilated. The right atrium is mildly dilated. Mitral Valve There is mild mitral valve thickening. There is no mitral valve stenosis. There is trace mitral regur gitation. Tricuspid Valve The tricuspid valve is not well visualized. There is no tricuspid stenosis. There is trace tricuspid regurgitation. Right ventricular systolic pressure is normal. Aortic Valve The aortic valve is not well visualized. No hemodynamically significant valvular aortic stenosis. No aortic regurgitation is present. Pulmonic Valve The pulmonic valve is not well visualized. Great Vessels The aortic root is normal size. Pericardium/Pleura There is no pericardial effusion. Interpretation Summary The study was technically difficult with many images being suboptimal in quality. The left ventricular size, thickness and function are normal The left ventricle is not well visualized. The left ventricular ejection fraction is normal. Regional wall motion abnormalities cannot be excluded due to limited visualization. The left atrium is mildly dilated. The right atrium is mildly dilated. Right ventricular systolic pressure is normal. There is trace tricuspid regurgitation. There is trace mitral regurgitation. MD Go Romero 03/04/2019 03:41 PM
--- NOTE | 2019-03-04 19:37 | PN ---
Teaching Attending Note Name of Resident: Rachelle Ward ATTENDING PHYSICIAN STATEMENT I saw and evaluated the patient. I reviewed the resident's note and discussed the case with the resident. I agree with the resident's findings and plan as documented. SUBJECTIVE: Presented with episode of SOB/chest tightness, now appears to have resolved. Wants to leave AMA. OBJECTIVE: Afebrile, hemodynamically Stable. Last Vital Signs Temp Pulse Resp BP Pulse Ox 97.8 F 71 20 115/90 98 03/04/19 11:08 03/04/19 11:08 03/04/19 11:08 03/04/19 11:08 03/04/19 11:08 HEENT - Atraumatic, normocephalic Heart - S1, S2, RRR Lungs - clear to auscultation Abdomen - Soft, non-tender. Bowel Sounds normal. Extremities - no edema, no calf tenderness Neuro - AAO x 3. Tone/Power normal all 4 extremities. Laboratory Results - last 24 hr 03/04/19 03/04/19 03/04/19 11:30 11:30 11:30 WBC 5.9 RBC 4.65 Hgb 15.3 Hct 43.7 MCV 94.0 MCH 33.0 MCHC 35.1 RDW 14.4 Plt Count 271 MPV 7.6 Absolute Neuts (auto) 4.1 Neutrophils % 68.3 Lymphocytes % 13.0 D Monocytes % 14.0 H Eosinophils % 3.9 D Basophils % 0.8 Nucleated RBC % 0 PT with INR 12.80 INR 1.08 PTT (Actin FS) 37.5 H Sodium 134 L Potassium 4.7 Chloride 98 Carbon Dioxide 30 Anion Gap 5 L BUN 28.7 H Creatinine 1.9 H Est GFR (CKD-EPI)AfAm 45.00 Est GFR (CKD-EPI)NonAf 38.82 Random Glucose 94 Calcium 8.8 Magnesium 2.3 Total Bilirubin 0.4 AST 29 ALT 43 Alkaline Phosphatase 98 Creatine Kinase 66 Troponin I < 0.02 B-Natriuretic Peptide 142.1 H Total Protein 7.4 Albumin 3.7 Discharge Medications Medication Instructions Recorded Atorvastatin Ca [Lipitor] 10 mg PO HS #30 tablet 10/06/18 Metoprolol Succinate [Toprol XL -] 50 mg PO DAILY #30 tab.sr.24h 10/06/18 Amlodipine Besylate 5 mg PO DAILY 11/14/18 Valsartan [Diovan] 160 mg PO BID #60 tablet 11/15/18 Apixaban [Eliquis] 5 mg PO BID 03/04/19 Furosemide [Lasix] 40 mg PO DAILY 03/04/19 Gabapentin [Neurontin] 300 mg PO QID PRN 03/04/19 ASSESSMENT AND PLAN: 54 year old male with history of HTN, HLD, Atrial Fibrillation/Flutter s/p Ablation 2016, Hx Alcohol Abuse, presents with an episode of SOB and chest tightness. He reports recent increase in medication dosages of Norvasc and Toprol and Lasix which he started taking BID instead of OD. As per PCP office, dose of Lasix was not increased. 1. ANDREA - etiology likely due to doubling of Lasix dose by patient Admitted for gentle hydration, renal imaging and renal function monitoring. Lasix held. 2. Episode of SOB - CXR without acute findings - no evidence of Atrial fibrillation with RVR or pulmonary cause. No wheeze, negative CXR. ECG - NSR Echo 10/03/18 - Moderate inferoapical hypokinesis, EF 50% Lexiscan 03/15/17 - No ischemic findings. Cardio consulted for eval for possible Cardiac cause. 3. Atrial fibrillation/Flutter s/p Ablation On Toprol and Eliquis. To continue recommended dose of Toprol as per PCP 4. HTN - Continue Toprol XL and Norvasc. Lasix, Valsartan held due to ANDREA. 5. HLD- continue Lipitor. Patient insisted on leaving despite being explained the risks of ANDREA including worsening renal function, uremia symptoms, electrolyte abnormalities leading to arrhythmia, cardiac arrest, syncope/collapse/fall, head injury, disability, . he verbalized understanding and accepted responsibility for his decisions. He was of sound mind and judgement at the time of signing against medical advice. All documentation completed by patient. He agreed to see Dr. Parson in clinic the next day for exam and repeat lab-work. he was advised to refrain from Lasix until his appt with Dr. Parson tomorrow.
[2019-03-04] MEDS ORDERED: APIXABAN 5 MG TABLET PO SCH (22:00)
[2019-03-04] MEDS ORDERED: ATORVASTATIN CA 10 MG TABLET (FP) PO SCH (22:00)
--- NOTE | 2019-03-05 14:44 | EKG ---
Test Reason : Blood Pressure : / mmHG Vent. Rate : 068 BPM Atrial Rate : 068 BPM P-R Int : 274 ms QRS Dur : 154 ms QT Int : 426 ms P-R-T Axes : 067 -12 012 degrees QTc Int : 452 ms POOR DATA QUALITY, INTERPRETATION MAY BE ADVERSELY AFFECTED SINUS RHYTHM WITH 1ST DEGREE A-V BLOCK RIGHT BUNDLE BRANCH BLOCK ABNORMAL ECG WHEN COMPARED WITH ECG OF 28-DEC-2018 21:56, SINUS RHYTHM HAS REPLACED JUNCTIONAL RHYTHM VENT. RATE HAS INCREASED BY 24 BPM RIGHT BUNDLE BRANCH BLOCK IS NOW PRESENT Confirmed by CARMEN COOL MD ([id number]) on 03/05/2019 2:44:04 PM Referred By: Confirmed By:CARMEN COOL MD
== END 2019-03-04 16:26 | disposition left against medical advice (07) ==
LOC: JER 10:59 → JERBED 12:38
DX: N17.9 Acute kidney failure, unspecified (principal); I25.119 Atherosclerotic heart disease of native coronary artery with unspecified angina pectoris; I11.0 Hypertensive heart disease with heart failure; I50.9 Heart failure, unspecified; I48.4 Atypical atrial flutter; Z79.01 Long term (current) use of anticoagulants; I45.10 Unspecified right bundle-branch block; E78.5 Hyperlipidemia, unspecified; F17.210 Nicotine dependence, cigarettes, uncomplicated; M54.12 Radiculopathy, cervical region; N40.0 Benign prostatic hyperplasia without lower urinary tract symptoms; K57.30 Diverticulosis of large intestine without perforation or abscess without bleeding; R01.1 Cardiac murmur, unspecified
CPT/HCPCS: 36415; 71045-TC-FY; 80053; 82550; 83735; 83880; 84484; 85025; 85610; 85730; 93005; 93010; 93306-TC; 99283-25; G0378; J7030